=== PATIENT | male | born 1970 | race Caucasian/White ===

== ENCOUNTER → 2016-07-17 | Outpatient (CLI) | payer BC ==
[~2016-07-17] MED LIST: ACET500C PO; ALEV220C2 PO; BACT800T5 PO; BACTDSTA PO; CIPR500T89 PO; CLAR10CA3 PO; CLON-412 PO; COLA100C PO; CYCL10TA PO; DOCU10CA PO; HYDR12CA PO; IBUP80TA PO; LUNE1TAB PO; MEDR4PAK PO; META800T82 PO; METF500T PO; NITR100C37 PO; OXYC-274 PO; OXYC1CON PO; OXYC20TA2 PO; SENN8.6C PO; SENNAKOT PO; TRAZO50TA PO; VALI10TA PO; WELLBUTRIN PO; [UNRECOGNIZED DRUG - OTHER] PO
--- NOTE | 2016-08-01 01:54 | ECWPNPC ---
PATIENT NAME: MARIA C MÉNDEZ : 1970 GENDER: MALE VISIT DATE: 07/17/2016 DISCHARGE DATE: 07/17/1633 VISIT LOCKED DATE TIME: PHYSICIAN: YESI MAHONEY RESOURCE: YESI MAHONEY REASON FOR APPOINTMENT 1. BACK HISTORY OF PRESENT ILLNESS HISTORY OF PRESENT ILLNESS: PAIN THE PATIENT DESCRIBES THE PAIN... FALL RISK SCREENING: SCREENING :NO FALLS IN THE PAST YEAR TODAY'S VISIT: NOTES: RATES PAIN TODAY 7/10. NOTES PAIN CENTERED IN LOW BACK AND RIGHT FOOT/ANKLE. DESCRIBES PAIN CONSTANT, ACHING, SHARP, STABBING TENDER AND SHOOTING.NOTES INCREASING JOINT PAIN. IS USING MASSAGE AND ESSENTIAL OILS WHICH CAN BE HELPFUL.IS HAVING VERY STIFF MORNINGS. WILL BE STARTING [place] FOR FLEXIBILITY STATES HAS GAINED 40 LBS SINCE STOPPING PHENTERAMINE. CURRENT MEDICATIONS TAKING NAPROXEN 250 MG TABLET 2 CAP ORALLY THREE DAILY NEEDED TAKING CYCLOBENZAPRINE HCL 10 MG TABLET 1 TABLET ORALLY THREE TIMES A DAY TAKING OXYCODONE HCL 20 MG TABLET 1 ORALLY Q4-6H MDD5 NOT-TAKING PHENTERMINE HCL 37.5 MG CAPSULE 1 TABLET ORALLY DAILLY MDD=1 NOT-TAKING IBUPROFEN 200 MG TABLET 1 TABLET NEEDED ORALLY EVERY 6 HRS DISCONTINUED METHOCARBAMOL 750 MG TABLET 1 TABLET ORALLY BID MEDICATION LIST REVIEWED AND RECONCILED WITH THE PATIENT PAST MEDICAL HISTORY MRSA OSTEOMYELITIS OF LEFT FIFTH METATARSAL 08/20/2013 HYPERTENSION DEPRESSION SESONAL ALLERGIES KIDNEYS MISSHAPED INSOMNIA DIABETES ASCVD 10 YR RISK: 4.3% (DECEMBER 2013) ALLERGIES AMOXICILLIN: ANAPHYLAXIS: ALLERGY IODINE: ANAPHYLAXIS: ALLERGY SOCIAL HISTORY GENERAL: TOBACCO USE ARE YOU A:NONSMOKER 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 NEW PATIENT PAIN DIARY TODAY'S VISITNOTES FROM 0-10, WHAT LEVEL IS YOUR PAIN TODAY?0 PAIN CLINIC PFS, CLERGY, PUBLIC HEALTH REFERRALS PFS REFERRAL NEEDED?NO CLERGY REFERRAL NEEDED?NO PUBLIC HEALTH REFERRAL NEEDED?NO WAS THE PROVIDER NOTIFIED OF ANY PERTINENT INFO?NO PFS REFERRAL NEEDED?NO CLERGY REFERRAL NEEDED?NO PUBLIC HEALTH REFERRAL NEEDED?NO WAS THE PROVIDER NOTIFIED OF ANY PERTINENT INFO?NO REVIEW OF SYSTEMS CONSTITUTIONAL: ANY CHANGE IN YOUR MEDICAL CONDITION? NO . CHILLS NO . FEVER NO . INFECTION: DO YOU HAVE NEW INFECTIONS? NO . DO YOU HAVE HISTORY OF MRSA? NO . MUSCULOSKELETAL: ANY NEW PATTERNS OF PAIN OR NUMBNESS? NO . GASTROENTEROLOGY: ANY NEW CHANGE IN BOWEL CONTROL? NO . GENITOURINARY: ANY NEW CHANGE IN BLADDER CONTROL? NO . IS THERE A CHANCE YOU COULD BE ? NO . HEMATOLOGY/LYMPH: DO YOU TAKE ANY BLOOD THINNERS? (FOR EXAMPLE- COUMADIN, PLAVIX, AGGRENOX, PLATEL, PRADAXA, OR XARELTO) NO . WHEN WAS YOUR LAST DOSE? DATE: TIME: . NEUROLOGY: HAVE YOU FALLEN IN THE PAST 6 MONTHS? NO . ANY NEW EXTREMITY NUMBNESS OR WEAKNESS? NO . CARDIOLOGY: DO YOU HAVE A PACEMAKER OR DEFIBRILLATOR? NO . RESPIRATORY: HAVE YOU BEEN SICK IN THE PAST WEEK? NO . FEVER NO . FLU LIKE SYMPTOMS? NO . COUGH NO . INTEGUMENTARY: DO YOU HAVE ANY RASHES OR OPEN SORES? NO . ALLERGIC/IMMUNO: ARE YOU ALLERGIC TO SHELLFISH OR IV DYE? YES . ANY NEW ALLERGIES? NO . PSYCHIATRIC: DO YOU HAVE THOUGHTS OF HURTING YOURSELF OR SOMEONE ELSE? NO . ARE YOU ABUSED, NEGLECTED, OR IN AN UNSAFE ENVIRONMENT? NO . ENDOCRINOLOGY: ARE YOU DIABETIC? NO . OTHER: DO YOU NEED ANY PRESCRIPTIONS? YES . IF YES, PLEASE LIST: CYCLOBENZAPRINE . ANY NEW PROBLEMS WITH YOUR MEDICATIONS? NO . WHEN DID YOU LAST EAT? ____ . WHEN DID YOU LAST DRINK? ____ . WHAT DID YOU LAST DRINK? ____ . NAME OF PERSON DRIVING YOU HOME? ____ . DO YOU HAVE ANY OTHER QUESTIONS OR CONCERNS NO . REVIEWED BY: PROVIDER: . VITAL SIGNS WT 290 LBS, HT 76 IN, BMI 35.30 INDEX, BP 153/84 MM HG, HR 98 /MIN, RR 18 /MIN, TEMP 98.4 F, OXYGEN SAT % 98, NA INITIALS TL [id number], REVIEWED BY: CM. EXAMINATION GENERAL EXAMINATION: HEENT:UNREMARKABLE. LUNGS:CLEAR TO AUSCULTATION BILATERALLY. HEART:HEART RATE REGULAR. MUSCULOSKELETAL:PALPATION: POSITIVE FOR PAIN OVER LUMBAR SPINOUS PROCESSES.POSITIVE FOR PAIN OVER LUMBAR PARASPINAL MUSCLES. TRIGGER POINTS:, ELICITED WITH PALPATION OVER LUMBAR PARAVERTEBRAL MUSCLES AND INTO THE SACRUM. RESTRICTION OF ROM IN THE LUMBAR AREA. POOR EXTENSION/FLEXION LEFT FOOT. CAN FLEX AT HIP WITHOUT DIFFICULTY.. ASSESSMENTS LUMBAR POST-LAMINECTOMY SYNDROME - M96.1 (PRIMARY) ARTHRALGIA, UNSPECIFIED JOINT - M25.50 CHRONIC PRESCRIPTION OPIATE USE - Z79.891 TREATMENT LUMBAR POST-LAMINECTOMY SYNDROME REFILL PHENTERMINE HCL CAPSULE, 37.5 MG, 1 TABLET, ORALLY, DAILLY MDD=1, 30 DAY(S), 30, REFILLS 0 NOTES: FOLLOW UP WITH ORTHO REGARDING LEFT FOOT. MUST GET PRIMARY CARE PROVIDER. HEALTH DIET. LOOK UP MEDITERRANIAN DIET. EAT AT LEAST 4 SMALL MEALS PER DAY. CUT BACK ON CARBS. PROCEDURE CODES FA211 ESTABILISHED PATIENT [facility] CHARGE FOLLOW UP 1ST WEEK IN OCTOBER ELECTRONICALLY SIGNED BY JULY ROGERS ON 07/31/2016 AT 09:39 AM EST DISCLAIMER : THIS IS A VISIT SUMMARY EXTRACTED FROM THE [employer] CHART. IT IS NOT A COPY OF THE [employer] PROGRESS NOTE. TERESO
== END ==
LOC: M PAIN 08:40
PROVIDERS: ATTEND Nurse Practitioner Family
DX: Z09 Encounter for follow-up examination after completed treatment for conditions other than malignant neoplasm (principal); M96.1 Postlaminectomy syndrome, not elsewhere classified; M25.50 Pain in unspecified joint; I10 Essential (primary) hypertension; E11.9 Type 2 diabetes mellitus without complications; F32.9 Major depressive disorder, single episode, unspecified; J30.2 Other seasonal allergic rhinitis; G47.00 Insomnia, unspecified; Z79.891 Long term (current) use of opiate analgesic; Z79.899 Other long term (current) drug therapy; Z88.1 Allergy status to other antibiotic agents; Z88.8 Allergy status to other drugs, medicaments and biological substances; Z86.14 Personal history of Methicillin resistant Staphylococcus aureus infection

== ENCOUNTER → 2016-10-20 | Outpatient (CLI) | payer BC ==
[~2016-10-20] MED LIST changes: -COLA100C PO; +COLA100C3 PO
--- NOTE | 2016-11-04 00:29 | ECWPNPC ---
PATIENT NAME: MARIA C MÉNDEZ : 1970 GENDER: MALE VISIT DATE: 10/20/2016 DISCHARGE DATE: 10/20/16 1137 VISIT LOCKED DATE TIME: PHYSICIAN: YESI MAHONEY RESOURCE: YESI MAHONEY REASON FOR APPOINTMENT 1. BACK HISTORY OF PRESENT ILLNESS HISTORY OF PRESENT ILLNESS: PAIN THE PATIENT DESCRIBES THE PAIN... FALL RISK SCREENING: SCREENING :NO FALLS IN THE PAST YEAR TODAY'S VISIT: NOTES: RATES PAIN 5-6/10. NOTES WORST AREAS OF DISCOMFORT ARE LOW BACK AND LEFT FOOT. RECENT FALL - LANDED ON RIGHT HIP - WAS SORE BUT IS IMPROVING. NO NEW NUMBNESS/WEAKNESS OFTER FALL. MEDS ARE HELPFUL AND DO KEEP PAIN SANG CONTROL.CONTINUES TO WORK. . CURRENT MEDICATIONS TAKING NAPROXEN 250 MG TABLET 2 CAP ORALLY THREE DAILY NEEDED TAKING CYCLOBENZAPRINE HCL 10 MG TABLET 1 TABLET ORALLY THREE TIMES A DAY TAKING PHENTERMINE HCL 37.5 MG CAPSULE 1 TABLET ORALLY DAILLY MDD=1 TAKING OXYCODONE HCL 20 MG TABLET 1 ORALLY Q4-6H MDD5 NOT-TAKING IBUPROFEN 200 MG TABLET 1 TABLET NEEDED ORALLY EVERY 6 HRS MEDICATION LIST REVIEWED AND RECONCILED WITH THE PATIENT PAST MEDICAL HISTORY MRSA OSTEOMYELITIS OF LEFT FIFTH METATARSAL 08/20/2013 HYPERTENSION DEPRESSION SESONAL ALLERGIES KIDNEYS MISSHAPED INSOMNIA DIABETES ASCVD 10 YR RISK: 4.3% (DECEMBER 2013) ALLERGIES AMOXICILLIN: ANAPHYLAXIS: ALLERGY IODINE: ANAPHYLAXIS: ALLERGY SOCIAL HISTORY GENERAL: PAIN CLINIC PFS, CLERGY, PUBLIC HEALTH REFERRALS CLERGY REFERRAL NEEDED?NO WAS THE PROVIDER NOTIFIED OF ANY PERTINENT INFO?NO PFS REFERRAL NEEDED?NO PUBLIC HEALTH REFERRAL NEEDED?NO PATIENT: ____. REVIEW OF SYSTEMS CONSTITUTIONAL: ANY CHANGE IN YOUR MEDICAL CONDITION? NO . CHILLS NO . FEVER NO . INFECTION: DO YOU HAVE NEW INFECTIONS? NO . DO YOU HAVE HISTORY OF MRSA? YES . MUSCULOSKELETAL: ANY NEW PATTERNS OF PAIN OR NUMBNESS? NO . GASTROENTEROLOGY: ANY NEW CHANGE IN BOWEL CONTROL? NO . GENITOURINARY: ANY NEW CHANGE IN BLADDER CONTROL? NO . IS THERE A CHANCE YOU COULD BE ? NO . HEMATOLOGY/LYMPH: DO YOU TAKE ANY BLOOD THINNERS? (FOR EXAMPLE- COUMADIN, PLAVIX, AGGRENOX, PLATEL, PRADAXA, OR XARELTO) NO . WHEN WAS YOUR LAST DOSE? DATE: TIME: . NEUROLOGY: HAVE YOU FALLEN IN THE PAST 6 MONTHS? YES, FELL ON RIGHT HIP AFTER GETTING CAUGHT UP IN COMPUTER CORD / LAST SAT . ANY NEW EXTREMITY NUMBNESS OR WEAKNESS? NO . CARDIOLOGY: DO YOU HAVE A PACEMAKER OR DEFIBRILLATOR? NO . RESPIRATORY: HAVE YOU BEEN SICK IN THE PAST WEEK? NO . FEVER NO . FLU LIKE SYMPTOMS? NO . COUGH NO . INTEGUMENTARY: DO YOU HAVE ANY RASHES OR OPEN SORES? NO . ALLERGIC/IMMUNO: ARE YOU ALLERGIC TO SHELLFISH OR IV DYE? YES . ANY NEW ALLERGIES? NO . PSYCHIATRIC: DO YOU HAVE THOUGHTS OF HURTING YOURSELF OR SOMEONE ELSE? NO . ARE YOU ABUSED, NEGLECTED, OR IN AN UNSAFE ENVIRONMENT? NO . ENDOCRINOLOGY: ARE YOU DIABETIC? NO . OTHER: DO YOU NEED ANY PRESCRIPTIONS? YES . IF YES, PLEASE LIST: OXYCODONE ON 11/05/16 . ANY NEW PROBLEMS WITH YOUR MEDICATIONS? NO . WHEN DID YOU LAST EAT? ____ . WHEN DID YOU LAST DRINK? ____ . WHAT DID YOU LAST DRINK? ____ . NAME OF PERSON DRIVING YOU HOME? ____ . DO YOU HAVE ANY OTHER QUESTIONS OR CONCERNS NO . HEENT: GENERAL TO HAVE EXTENSIVE DENTAL WORK . REVIEWED BY: PROVIDER: YESI LAGUNAS . VITAL SIGNS WT 290 LBS, HT 76 IN, BMI 35.30 INDEX, BP 140/84 MM HG, HR 97 /MIN, RR 18 /MIN, TEMP 98.1 F, OXYGEN SAT % 97%, NA INITIALS SC 10:39, REVIEWED BY: NL. EXAMINATION GENERAL EXAMINATION: HEENT:UNREMARKABLE. LUNGS:CLEAR TO AUSCULTATION BILATERALLY. HEART:HEART RATE REGULAR. MUSCULOSKELETAL:PALPATION: POSITIVE FOR PAIN OVER LUMBAR SPINOUS PROCESSES.POSITIVE FOR PAIN OVER LUMBAR PARASPINAL MUSCLES. TRIGGER POINTS:, ELICITED WITH PALPATION OVER LUMBAR PARAVERTEBRAL MUSCLES AND INTO THE SACRUM. RESTRICTION OF ROM IN THE LUMBAR AREA. POOR EXTENSION/FLEXION LEFT FOOT. SLOW TO RISE TO STANDING POSITION. POSTURE UPRIGHT, GAIT ANTALGIC WITH LEFT LEG LIMP. ASSESSMENTS LUMBAR POST-LAMINECTOMY SYNDROME - M96.1 (PRIMARY) LUMBAR RADICULOPATHY - M54.16 CHRONICALLY ON OPIATE THERAPY - Z79.891 TREATMENT LUMBAR POST-LAMINECTOMY SYNDROME NOTES: UTOX TODAY. CONTINUE CURRENT MEDS. CLINICAL NOTES: ISTOP REGISTRY REVIEWED AND DEMNOSTRATES COMPLLIANCE. BRINGS IN MEDICATIONS WHICH IS APPROPRIATE FOR WHAT WAS DISPENSED. RECENT URINE TOXICOLOGY REVIEWED. NO UNAUTHORIZED MEDICATIONS. NO ILLICIT SUBSTANCES AND PRESCRIBED MEDICATIONS WERE PRESENT. PROCEDURE CODES FA211 ESTABILISHED PATIENT [facility] CHARGE DISPOSITION & COMMUNICATION FOLLOW UP END OF DECEMBER/EARLY JANUARY ELECTRONICALLY SIGNED BY JULY ROGERS ON 11/03/2016 AT 01:09 PM EDT DISCLAIMER : THIS IS A VISIT SUMMARY EXTRACTED FROM THE [employer] CHART. IT IS NOT A COPY OF THE [employer] PROGRESS NOTE. MTDD
== END ==
LOC: M PAIN 10:40
PROVIDERS: ATTEND Nurse Practitioner Family
DX: M96.1 Postlaminectomy syndrome, not elsewhere classified (principal); M54.16 Radiculopathy, lumbar region; Z79.891 Long term (current) use of opiate analgesic; Z79.899 Other long term (current) drug therapy; Z88.0 Allergy status to penicillin; Z88.8 Allergy status to other drugs, medicaments and biological substances

== ENCOUNTER → 2017-01-15 | Outpatient (CLI) | payer BC ==
[~2017-01-15] MED LIST changes: -COLA100C3 PO; +COLA100C5 PO
--- NOTE | 2017-02-09 01:17 | ECWPNPC ---
PATIENT NAME: MARIA C MÉNDEZ : 1970 GENDER: MALE VISIT DATE: 01/15/2017 DISCHARGE DATE: 01/15/17 1416 VISIT LOCKED DATE TIME: PHYSICIAN: YESI MAHONEY RESOURCE: YESI MAHONEY REASON FOR APPOINTMENT 1. MEDS HISTORY OF PRESENT ILLNESS HISTORY OF PRESENT ILLNESS: PAIN THE PATIENT DESCRIBES THE PAIN... FALL RISK SCREENING: SCREENING :NO FALLS IN THE PAST YEAR TODAY'S VISIT: NOTES: RATES PAIN TODAY 5-6/10. HAD RECENT FALL WITH RIGHT HIP PAIN. IS DOING EXERCISES, APPLICATION OF HEAT. NIGHT IS THE WORST AT PAIN IN HIP AREA IS AFFECTING SLEEP. DESCRIBES PAIN CONSTANT, ACHING AND THROBBING.. CURRENT MEDICATIONS TAKING NAPROXEN 250 MG TABLET 2 CAP ORALLY THREE DAILY NEEDED TAKING PHENTERMINE HCL 37.5 MG CAPSULE 1 TABLET ORALLY DAILLY MDD=1, NOTES: 2 MONTHS AGO LAST DOSE TAKING CYCLOBENZAPRINE HCL 10 MG TABLET 1 TABLET ORALLY THREE TIMES A DAY TAKING OXYCODONE HCL 20 MG TABLET 1 ORALLY Q4-6H MDD5 NOT-TAKING IBUPROFEN 200 MG TABLET 1 TABLET NEEDED ORALLY EVERY 6 HRS MEDICATION LIST REVIEWED AND RECONCILED WITH THE PATIENT PAST MEDICAL HISTORY MRSA OSTEOMYELITIS OF LEFT FIFTH METATARSAL 08/20/2013 HYPERTENSION DEPRESSION SESONAL ALLERGIES KIDNEYS MISSHAPED INSOMNIA DIABETES ASCVD 10 YR RISK: 4.3% (DECEMBER 2013) ALLERGIES AMOXICILLIN: ANAPHYLAXIS: ALLERGY IODINE: ANAPHYLAXIS: ALLERGY REVIEW OF SYSTEMS REVIEWED BY: PROVIDER: YESI 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 CONSTITUTIONAL: ANY CHANGE IN YOUR MEDICAL CONDITION? NO . CHILLS NO . FEVER NO . INFECTION: DO YOU HAVE NEW INFECTIONS? NO . DO YOU HAVE HISTORY OF MRSA? NO . MUSCULOSKELETAL: ANY NEW PATTERNS OF PAIN OR NUMBNESS? YES, RIGHT HIP PAIN LAST FEW WEEKS . GASTROENTEROLOGY: ANY NEW CHANGE IN BOWEL CONTROL? NO . GENITOURINARY: ANY NEW CHANGE IN BLADDER CONTROL? NO . IS THERE A CHANCE YOU COULD BE ? NO . HEMATOLOGY/LYMPH: DO YOU TAKE ANY BLOOD THINNERS? (FOR EXAMPLE- COUMADIN, PLAVIX, AGGRENOX, PLATEL, PRADAXA, OR XARELTO) NO . WHEN WAS YOUR LAST DOSE? DATE: TIME: . NEUROLOGY: HAVE YOU FALLEN IN THE PAST 6 MONTHS? YES, FOOT GOT CAUGHT AND FELL BACKWARDS LANDED ON HIS BACK/ NO WORK MISSED. DID NOT SEE MD . ANY NEW EXTREMITY NUMBNESS OR WEAKNESS? NO . CARDIOLOGY: DO YOU HAVE A PACEMAKER OR DEFIBRILLATOR? NO . RESPIRATORY: HAVE YOU BEEN SICK IN THE PAST WEEK? NO . FEVER NO . FLU LIKE SYMPTOMS? NO . COUGH NO . INTEGUMENTARY: DO YOU HAVE ANY RASHES OR OPEN SORES? NO . ALLERGIC/IMMUNO: ARE YOU ALLERGIC TO SHELLFISH OR IV DYE? NO . ANY NEW ALLERGIES? NO . PSYCHIATRIC: DO YOU HAVE THOUGHTS OF HURTING YOURSELF OR SOMEONE ELSE? NO . ARE YOU ABUSED, NEGLECTED, OR IN AN UNSAFE ENVIRONMENT? NO . ENDOCRINOLOGY: ARE YOU DIABETIC? YES - BLOOD SUGARS UNDER CONTROL . OTHER: DO YOU NEED ANY PRESCRIPTIONS? YES . IF YES, PLEASE LIST: OXYCODONE, FLEXERIL . ANY NEW PROBLEMS WITH YOUR MEDICATIONS? NO . WHEN DID YOU LAST EAT? ____ . WHEN DID YOU LAST DRINK? ____ . WHAT DID YOU LAST DRINK? ____ . NAME OF PERSON DRIVING YOU HOME? ____ . DO YOU HAVE ANY OTHER QUESTIONS OR CONCERNS NO . VITAL SIGNS WT 294.8 LBS, HT 76 IN, BMI 35.88 INDEX, BP 144/87 MM HG, HR 93 /MIN, RR 18 /MIN, TEMP 96.5 F, OXYGEN SAT % 95%, NA INITIALS SC 13:32, REVIEWED BY: NL. EXAMINATION GENERAL EXAMINATION: PSYCHALERT , ORIENTED X 3 , APPROPRIATE MOOD AND AFFECT . SMILING AND TALKATIVE. LUNGS:CLEAR TO AUSCULTATION BILATERALLY. HEART:HEART RATE REGULAR. MUSCULOSKELETAL:POINT TENDERNESS OVER LUMAR SPINOUS PROCESSES AND ACROSS THE LUMBOSACRAL AXIS AND LEFT ILIAC CREAST. RIGHT FOOT DROP PRESENT. TENDER WITH PALPATION OVER LEFT TROCANTERIC BURSA. POSITIVE RUDDY SIGN LEFT. ABLE TO RISE SLOWLY TO STANDING POSITION. CANE USED FOR BALANCE. POSTURE UPRIGHT. ASSESSMENTS LUMBAR POST-LAMINECTOMY SYNDROME - M96.1 (PRIMARY) LOW BACK PAIN - M54.5 LEFT HIP PAIN - M25.552 TREATMENT LUMBAR POST-LAMINECTOMY SYNDROME REFILL OXYCODONE HCL TABLET, 20 MG, 1, ORALLY, Q4-6H MDD5, 30 DAY(S), 150, REFILLS 0 HIP,AP,LAT TO INCLUDE [id number] M 01/15/2017 2:10:44 PM > LEFT HIP PAIN NOTES: TRY TO PUT TENS OVER PAIN FUL AREAS OF LEFT HIP AND SACRUM AT THE ILIAC CREST. ICE TO MUSCLE SPASM AREAS. CLINICAL NOTES: ISTOP REGISTRY REVIEWED AND DEMNOSTRATES COMPLLIANCE. BRINGS IN MEDICATIONS WHICH IS APPROPRIATE FOR WHAT WAS DISPENSED. RECENT URINE TOXICOLOGY REVIEWED. NO UNAUTHORIZED MEDICATIONS. NO ILLICIT SUBSTANCES AND PRESCRIBED MEDICATIONS WERE PRESENT. PROCEDURE CODES FA211 ESTABILISHED PATIENT [facility] CHARGE G8730 PAIN ASSESS POS TOOL F/U PLAN DOC G8427 DOC MEDS VERIFIED W/PT OR RE DISPOSITION & COMMUNICATION FOLLOW UP 2 MONTHS (REASON: BACK PAIN) ELECTRONICALLY SIGNED BY JULY ROGERS ON 02/08/2017 AT 05:57 PM EDT DISCLAIMER : THIS IS A VISIT SUMMARY EXTRACTED FROM THE [employer] CHART. IT IS NOT A COPY OF THE [employer] PROGRESS NOTE. TERESO
== END ==
LOC: M PAIN 13:20
PROVIDERS: ATTEND Nurse Practitioner Family
DX: M96.1 Postlaminectomy syndrome, not elsewhere classified (principal); M54.5 Low back pain; M25.552 Pain in left hip; Z79.891 Long term (current) use of opiate analgesic; Z79.899 Other long term (current) drug therapy; Z88.0 Allergy status to penicillin; Z88.8 Allergy status to other drugs, medicaments and biological substances

== ENCOUNTER → 2017-03-19 | Outpatient (CLI) | payer BC ==
--- NOTE | 2017-04-04 02:24 | ECWPNPC ---
PATIENT NAME: MARIA C MÉNDEZ : 1970 GENDER: MALE VISIT DATE: 03/19/2017 DISCHARGE DATE: 03/19/17 1039 VISIT LOCKED DATE TIME: PHYSICIAN: YESI MAHONEY RESOURCE: YESI MAHONEY REASON FOR APPOINTMENT 1. BACK PAIN HISTORY OF PRESENT ILLNESS HISTORY OF PRESENT ILLNESS: PAIN THE PATIENT DESCRIBES THE PAIN... FALL RISK SCREENING: SCREENING :NO FALLS IN THE PAST YEAR TODAY'S VISIT: NOTES: RATES PAIN LEVEL TODAYA S 11/15. DESCRIBES PAIN CONSTANT, BURNING, ACHING. PAIN CENTERED AT LOW BACK WITH RADIATION TO LEFT LEG TO LEVEL OF THE FOOT. REPORTS HIS MEDICATIONS ARE HELPFUL AND ALLOW HIM TO FUNCTION AND TO CONTINUE WORK. HAS RECENTLY CUT BACK SLIGHTLY ON HIS WORK HOURS DUE TO PAIN. C=DENIES ANY ADVERSE EFFECTS SECONDARY TO HIS PAIN MEDS. . CURRENT MEDICATIONS TAKING CYCLOBENZAPRINE HCL 10 MG TABLET 1 TABLET ORALLY THREE TIMES A DAY TAKING OXYCODONE HCL 20 MG TABLET 1 ORALLY Q4-6H MDD5 TAKING PHENTERMINE HCL 37.5 MG CAPSULE 1 TABLET ORALLY DAILLY MDD=1 TAKING ACETAMINOPHEN 500 MG CAPSULE 2 CAPSULES NEEDED ORALLY EVERY 6 HRS NOT-TAKING NAPROXEN 250 MG TABLET 2 CAP ORALLY THREE DAILY NEEDED NOT-TAKING IBUPROFEN 200 MG TABLET 1 TABLET NEEDED ORALLY EVERY 6 HRS MEDICATION LIST REVIEWED AND RECONCILED WITH THE PATIENT PAST MEDICAL HISTORY MRSA OSTEOMYELITIS OF LEFT FIFTH METATARSAL 08/20/2013 HYPERTENSION DEPRESSION SESONAL ALLERGIES KIDNEYS MISSHAPED INSOMNIA DIABETES ASCVD 10 YR RISK: 4.3% (DECEMBER 2013) ALLERGIES AMOXICILLIN: ANAPHYLAXIS: ALLERGY IODINE: ANAPHYLAXIS: ALLERGY SURGICAL HISTORY LUMBAR SPINE REPLACEMENT DR MARVEL MOROCHO 03/20/13 LUMBAR SPINE FUSION 04/03/13 HOSPITALIZATION/MAJOR DIAGNOSTIC PROCEDURE RELATED TO SURGIERIES REVIEW OF SYSTEMS REVIEWED BY: PROVIDER: YESI LAGUNAS . CONSTITUTIONAL: NEW UNEXPLAINABLE WEIGHT LOSS? HAS WORKED HARD ON WEIGHT LOSS AND IMPROVED DIET. HAS LOST 15 LBS . ANY CHANGE IN YOUR MEDICAL CONDITION? NO . CHILLS NO . FEVER NO . INFECTION: DO YOU HAVE NEW INFECTIONS? NO . DO YOU HAVE HISTORY OF MRSA? NO . MUSCULOSKELETAL: ANY NEW PATTERNS OF PAIN OR NUMBNESS? NO . GASTROENTEROLOGY: ANY NEW CHANGE IN BOWEL CONTROL? NO . GENITOURINARY: ANY NEW CHANGE IN BLADDER CONTROL? NO . IS THERE A CHANCE YOU COULD BE ? NO . HEMATOLOGY/LYMPH: DO YOU TAKE ANY BLOOD THINNERS? (FOR EXAMPLE- COUMADIN, PLAVIX, AGGRENOX, PLATEL, PRADAXA, OR XARELTO) NO . WHEN WAS YOUR LAST DOSE? DATE: TIME: . NEUROLOGY: HAVE YOU FALLEN IN THE PAST 6 MONTHS? YES, PT STATES HIS FOOT GOT TANGLED IN CORD AT WORK, AND FELL, PT DENIES MAJOR INJURIES REQUIRING MEDICAL ATTENTION . ANY NEW EXTREMITY NUMBNESS OR WEAKNESS? NO . CARDIOLOGY: DO YOU HAVE A PACEMAKER OR DEFIBRILLATOR? NO . RESPIRATORY: HAVE YOU BEEN SICK IN THE PAST WEEK? NO . FEVER NO . FLU LIKE SYMPTOMS? NO . COUGH NO . INTEGUMENTARY: DO YOU HAVE ANY RASHES OR OPEN SORES? NO . ALLERGIC/IMMUNO: ARE YOU ALLERGIC TO SHELLFISH OR IV DYE? YES, SHELLFISH AND BETADINE . ANY NEW ALLERGIES? NO . PSYCHIATRIC: DO YOU HAVE THOUGHTS OF HURTING YOURSELF OR SOMEONE ELSE? NO . ARE YOU ABUSED, NEGLECTED, OR IN AN UNSAFE ENVIRONMENT? NO . ENDOCRINOLOGY: ARE YOU DIABETIC? NO . OTHER: DO YOU NEED ANY PRESCRIPTIONS? YES, OXYCODONE, FLEXARIL, PHENTERMINE . IF YES, PLEASE LIST: ____ . ANY NEW PROBLEMS WITH YOUR MEDICATIONS? NO . WHEN DID YOU LAST EAT? ____ . WHEN DID YOU LAST DRINK? ____ . WHAT DID YOU LAST DRINK? ____ . NAME OF PERSON DRIVING YOU HOME? ____ . DO YOU HAVE ANY OTHER QUESTIONS OR CONCERNS NO . PSYCHOLOGY: SLEEP DISTURBANCES UNABLE TO FIND A GOOD POSITION FOR SLEEPING . VITAL SIGNS WT 281 LBS, HT 76 IN, BMI 34.20 INDEX, BP 166/88 MM HG, HR 96 /MIN, RR 16 /MIN, TEMP 98 F, OXYGEN SAT % 100, REVIEWED BY: EM. EXAMINATION GENERAL EXAMINATION: PSYCHALERT , ORIENTED X 3 , APPROPRIATE MOOD AND AFFECT . SMILING AND TALKATIVE. LUNGS:CLEAR TO AUSCULTATION BILATERALLY. HEART:HEART RATE REGULAR. MUSCULOSKELETAL:POINT TENDERNESS OVER LUMAR SPINOUS PROCESSES AND ACROSS THE LUMBOSACRAL AXIS AND LEFT ILIAC CREAST. RIGHT FOOT DROP PRESENT. TENDER WITH PALPATION OVER LEFT TROCANTERIC BURSA. POSITIVE RUDDY SIGN LEFT. ABLE TO RISE SLOWLY TO STANDING POSITION.. POSTURE UPRIGHT. GAIT ANTALGIC AND FOOT ROLLS LATERALLY WITH AMBULATION. ASSESSMENTS LUMBAR POST-LAMINECTOMY SYNDROME - M96.1 (PRIMARY) LOW BACK PAIN - M54.5 LEFT HIP PAIN - M25.552 TREATMENT LUMBAR POST-LAMINECTOMY SYNDROME REFILL CYCLOBENZAPRINE HCL TABLET, 10 MG, 1 TABLET, ORALLY, THREE TIMES A DAY 3 MONTHS SUPPLY CODE D, 90 DAY(S), 270, REFILLS 2 NOTES: USE TENS UNIT WHEN ABLE. WALK AND EXERCISE ABLE. CLINICAL NOTES: ISTOP REGISTRY REVIEWED AND DEMNOSTRATES COMPLLIANCE. BRINGS IN MEDICATIONS WHICH IS APPROPRIATE FOR WHAT WAS DISPENSED. RECENT URINE TOXICOLOGY REVIEWED. NO UNAUTHORIZED MEDICATIONS. NO ILLICIT SUBSTANCES AND PRESCRIBED MEDICATIONS WERE PRESENT. PROCEDURE CODES FA211 ESTABILISHED PATIENT [facility] CHARGE DISPOSITION & COMMUNICATION FOLLOW UP 2 MONTHS (REASON: BACK PAIN) ELECTRONICALLY SIGNED BY JULY ROGERS ON 04/03/2017 AT 06:45 PM EDT DISCLAIMER : THIS IS A VISIT SUMMARY EXTRACTED FROM THE [employer] CHART. IT IS NOT A COPY OF THE [employer] PROGRESS NOTE. TERESO
== END ==
LOC: M PAIN 09:30
PROVIDERS: ATTEND Nurse Practitioner Family
DX: M96.1 Postlaminectomy syndrome, not elsewhere classified (principal); M54.5 Low back pain; M25.552 Pain in left hip; Z79.891 Long term (current) use of opiate analgesic; Z79.899 Other long term (current) drug therapy; Z88.0 Allergy status to penicillin; Z88.3 Allergy status to other anti-infective agents

== ENCOUNTER → 2017-06-04 | Outpatient (CLI) | payer BC ==
--- NOTE | 2017-06-21 01:43 | ECWPNPC ---
PATIENT NAME: MARIA C MÉNDEZ : 1970 GENDER: MALE VISIT DATE: 06/04/2017 DISCHARGE DATE: 06/04/17 1005 VISIT LOCKED DATE TIME: PHYSICIAN: YESI MAHONEY RESOURCE: YESI MAHONEY REASON FOR APPOINTMENT 1. BACK HISTORY OF PRESENT ILLNESS HISTORY OF PRESENT ILLNESS: PAIN THE PATIENT DESCRIBES THE PAIN... FALL RISK SCREENING: SCREENING :NO FALLS IN THE PAST YEAR TODAY'S VISIT: NOTES: RATES PAIN TODAY 5-6/10. NOTES PAIN IS EXACERBATED WITH LONG WORK HOURS, PROLONGED STANDING AND WALKING, AND THE WEATHER. PAIN IS CONSTANT, ACHING AND BURNING. HAS BEEN USING TENS UNIT AND MOIST HEAT TO THE BACK.. 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 REVIEW OF SYSTEMS REVIEWED BY: PROVIDER: YESI LAGUNAS . CONSTITUTIONAL: ANY CHANGE IN YOUR MEDICAL CONDITION? NO . CHILLS NO . FEVER NO . INFECTION: DO YOU HAVE NEW INFECTIONS? NO . DO YOU HAVE HISTORY OF MRSA? NO . MUSCULOSKELETAL: ANY NEW PATTERNS OF PAIN OR NUMBNESS? NO . GASTROENTEROLOGY: ANY NEW CHANGE IN BOWEL CONTROL? NO . GENITOURINARY: ANY NEW CHANGE IN BLADDER CONTROL? NO . IS THERE A CHANCE YOU COULD BE ? NO . HEMATOLOGY/LYMPH: DO YOU TAKE ANY BLOOD THINNERS? (FOR EXAMPLE- COUMADIN, PLAVIX, AGGRENOX, PLATEL, PRADAXA, OR XARELTO) NO . WHEN WAS YOUR LAST DOSE? DATE: TIME: . NEUROLOGY: HAVE YOU FALLEN IN THE PAST 6 MONTHS? NO . ANY NEW EXTREMITY NUMBNESS OR WEAKNESS? NO . CARDIOLOGY: DO YOU HAVE A PACEMAKER OR DEFIBRILLATOR? NO . RESPIRATORY: HAVE YOU BEEN SICK IN THE PAST WEEK? NO . FEVER NO . FLU LIKE SYMPTOMS? NO . COUGH NO . INTEGUMENTARY: DO YOU HAVE ANY RASHES OR OPEN SORES? NO . ALLERGIC/IMMUNO: ARE YOU ALLERGIC TO SHELLFISH OR IV DYE? YES, IODINE . ANY NEW ALLERGIES? NO . PSYCHIATRIC: DO YOU HAVE THOUGHTS OF HURTING YOURSELF OR SOMEONE ELSE? NO . ARE YOU ABUSED, NEGLECTED, OR IN AN UNSAFE ENVIRONMENT? NO . ENDOCRINOLOGY: ARE YOU DIABETIC? NO . OTHER: DO YOU NEED ANY PRESCRIPTIONS? NO . IF YES, PLEASE LIST: ____ . ANY NEW PROBLEMS WITH YOUR MEDICATIONS? NO . WHEN DID YOU LAST EAT? ____ . WHEN DID YOU LAST DRINK? ____ . WHAT DID YOU LAST DRINK? ____ . NAME OF PERSON DRIVING YOU HOME? ____ . DO YOU HAVE ANY OTHER QUESTIONS OR CONCERNS NO . VITAL SIGNS WT 277 LBS, HT 76 IN, BMI 33.71 INDEX, BP 154/94 MM HG, HR 107 /MIN, RR 18 /MIN, TEMP 98.8 F, OXYGEN SAT % 97%, NA INITIALS SC 09:24, REVIEWED BY: NL. EXAMINATION GENERAL EXAMINATION: PSYCHALERT , ORIENTED X 3 , APPROPRIATE MOOD AND AFFECT . SMILING AND TALKATIVE. LUNGS:CLEAR TO AUSCULTATION BILATERALLY. HEART:HEART RATE REGULAR. MUSCULOSKELETAL:POINT TENDERNESS OVER LUMAR SPINOUS PROCESSES AND ACROSS THE LUMBOSACRAL AXIS AND LEFT ILIAC CREAST. RIGHT FOOT DROP PRESENT. TENDER WITH PALPATION OVER LEFT TROCANTERIC BURSA. POSITIVE RUDDY SIGN LEFT. ABLE TO RISE SLOWLY TO STANDING POSITION.. POSTURE UPRIGHT. GAIT ANTALGIC AND FOOT ROLLS LATERALLY WITH AMBULATION. 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 CONTINUE CURRENT MEDS. START VITAMIN D-3 3000IU DAILY. CLINICAL NOTES: ISTOP REGISTRY REVIEWED AND DEMNOSTRATES COMPLLIANCE. (REF # [id number]) BRINGS IN MEDICATIONS WHICH IS APPROPRIATE FOR WHAT WAS DISPENSED. RECENT URINE TOXICOLOGY REVIEWED. NO UNAUTHORIZED MEDICATIONS. NO ILLICIT SUBSTANCES AND PRESCRIBED MEDICATIONS WERE PRESENT. PROCEDURE CODES FA211 ESTABILISHED PATIENT [facility] CHARGE DISPOSITION & COMMUNICATION FOLLOW UP 2-3 MONTHS (REASON: BACK/HIP PAIN) ELECTRONICALLY SIGNED BY JULY ROGERS ON 06/20/2017 AT 09:10 AM EST DISCLAIMER : THIS IS A VISIT SUMMARY EXTRACTED FROM THE [employer] CHART. IT IS NOT A COPY OF THE [employer] PROGRESS NOTE. TERESO
== END ==
LOC: M PAIN 09:00
PROVIDERS: ATTEND Nurse Practitioner Family
DX: M96.1 Postlaminectomy syndrome, not elsewhere classified (principal); M54.5 Low back pain; M25.552 Pain in left hip; Z79.891 Long term (current) use of opiate analgesic; Z79.899 Other long term (current) drug therapy; Z88.1 Allergy status to other antibiotic agents; Z88.3 Allergy status to other anti-infective agents

== ENCOUNTER → 2017-09-03 | Outpatient (CLI) | payer BC | LOC: M PAIN 08:45 | DX: G89.29 Other chronic pain (principal); M96.1 Postlaminectomy syndrome, not elsewhere classified; M54.5 Low back pain; M25.552 Pain in left hip; I10 Essential (primary) hypertension; F32.9 Major depressive disorder, single episode, unspecified; J30.2 Other seasonal allergic rhinitis; G47.00 Insomnia, unspecified; E11.9 Type 2 diabetes mellitus without complications; Z79.891 Long term (current) use of opiate analgesic; Z88.0 Allergy status to penicillin; Z88.8 Allergy status to other drugs, medicaments and biological substances; Z79.899 Other long term (current) drug therapy | CPT/HCPCS: G0463 ==

== ENCOUNTER → 2017-11-05 | Outpatient (CLI) | payer BC | LOC: M PAIN 08:45 | DX: M96.1 Postlaminectomy syndrome, not elsewhere classified (principal); I10 Essential (primary) hypertension; Z79.891 Long term (current) use of opiate analgesic; Z79.899 Other long term (current) drug therapy; Z88.0 Allergy status to penicillin; Z88.8 Allergy status to other drugs, medicaments and biological substances | CPT/HCPCS: G0463 ==

== ENCOUNTER → 2018-02-04 | Outpatient (CLI) | payer BC | LOC: M PAIN 08:30 | DX: M86.172 Other acute osteomyelitis, left ankle and foot (principal); E11.9 Type 2 diabetes mellitus without complications; I10 Essential (primary) hypertension; F32.9 Major depressive disorder, single episode, unspecified; J30.2 Other seasonal allergic rhinitis; G47.00 Insomnia, unspecified; Z79.891 Long term (current) use of opiate analgesic; Z79.899 Other long term (current) drug therapy; Z88.1 Allergy status to other antibiotic agents; Z98.1 Arthrodesis status | CPT/HCPCS: G0463 ==

== ENCOUNTER → 2018-04-19 | Outpatient (CLI) | payer BC | LOC: M PAIN 13:00 | DX: M96.1 Postlaminectomy syndrome, not elsewhere classified (principal); M54.5 Low back pain; E11.9 Type 2 diabetes mellitus without complications; I10 Essential (primary) hypertension; F32.9 Major depressive disorder, single episode, unspecified; J30.2 Other seasonal allergic rhinitis; G47.00 Insomnia, unspecified; Z79.891 Long term (current) use of opiate analgesic; Z79.899 Other long term (current) drug therapy; Z88.1 Allergy status to other antibiotic agents; Z91.013 Allergy to seafood | CPT/HCPCS: G0463 ==

== ENCOUNTER → 2018-09-02 | Outpatient (CLI) | payer BC ==
--- NOTE | 2018-09-16 00:38 | ECWPNPC ---
PATIENT NAME: MARIA C MÉNDEZ : 1970 GENDER: MALE VISIT DATE: 09/02/2018 DISCHARGE DATE: 09/02/18 0949 VISIT LOCKED DATE TIME: PHYSICIAN: CHAD VOGT RESOURCE: CHAD VOGT REASON FOR APPOINTMENT 1. BACK PT OF SW HISTORY OF PRESENT ILLNESS HISTORY OF PRESENT ILLNESS: HERE FOR F/U OF CHRONIC LOW BACK PAIN AND LEFT FOOT PAIN.RECENT AMPUTATION LEFT 5TH METATARSAL FOR OSTEOMYELITIS.SUFFERS FROM CHRONIC LOW BACK PAIN W HX OF LUMBAR SURGERY WITH JEAN PLACEMENT APPROXIMATLEY 4 YEARS AGO.RATING PAIN VAS 6/10. PAIN THE PATIENT DESCRIBES THE PAIN... FALL RISK SCREENING: SCREENING : NO FALLS IN THE PAST YEAR. CURRENT MEDICATIONS TAKING IBUPROFEN 200 MG TABLET 1 TABLET NEEDED ORALLY EVERY 6 HRS TAKING CYCLOBENZAPRINE HCL 10 MG TABLET 1 TABLET ORALLY THREE TIMES A DAY 3 MONTHS SUPPLY CODE D TAKING OXYCODONE HCL 20 MG TABLET 1 ORALLY TAKE 1 TAB Q4-6 HRS PRN PAIN MDD5 TAKING PHENTERMINE HCL 37.5 MG CAPSULE 1 TABLET ORALLY DAILY MDD=1, NOTES: NOT CURRETNLY TAKING DUE TO INTERACTION WITH ANOTHER MEDICATION TAKING METFORMIN HCL 500 MG TABLET 1 TABLET WITH A MEAL ORALLY BID TAKING BUPROPION HCL ER (SR) 150 MG TABLET EXTENDED RELEASE 12 HOUR 1 TABLET IN THE MORNING ORALLY BID TAKING LINEZOLID 600 MG TABLET 1 TABLET ORALLY EVERY 12 HRS TAKING SILVER SULFADIAZINE 1 % CREAM 1 APPLICATION TO AFFECTED AREA EXTERNALLY ONCE A DAY NOT-TAKING ACETAMINOPHEN 500 MG CAPSULE 2 CAPSULES NEEDED ORALLY EVERY 6 HRS NOT-TAKING IBUPROFEN PM 200-38 MG TABLET 2 TABLETS AT BEDTIME NEEDED ORALLY ONCE A DAY NOT-TAKING AMLODIPINE BESYLATE 10 MG TABLET 1 TABLET ORALLY ONCE A DAY NOT-TAKING MINOCYCLINE HCL 100 MG CAPSULE 1 CAPSULE ORALLY EVERY 12 HRS NOT-TAKING DICLOFENAC SODIUM 75 MG TABLET DELAYED RELEASE 1 TABLET WITH FOOD OR MILK ORALLY TWICE A DAY NOT-TAKING NAPROXEN 250 MG TABLET 2 CAP ORALLY THREE DAILY NEEDED MEDICATION LIST REVIEWED AND RECONCILED WITH THE PATIENT PAST MEDICAL HISTORY MRSA OSTEOMYELITIS OF LEFT FIFTH METATARSAL 08/20/2013 HYPERTENSION DEPRESSION SESONAL ALLERGIES KIDNEYS MISSHAPED INSOMNIA PRE-DIABETES ASCVD 10 YR RISK: 4.3% (DECEMBER 2013) OSTEOMYELITIS LEFT FOOT ALLERGIES AMOXICILLIN: ANAPHYLAXIS: ALLERGY IODINE: ANAPHYLAXIS: ALLERGY SURGICAL HISTORY LUMBAR SPINE REPLACEMENT DR MARVEL MOROCHO 03/20/13 LUMBAR SPINE FUSION 04/03/13 PARTIAL LEFT FOOT AMPUTATION 01/08/19 FAMILY HISTORY FATHER: ALIVE, ALIVE MOTHER: ALIVE, ALIVE 4 BROTHER(S) , 1 SISTER(S) - HEALTHY. 2 SON(S) - HEALTHY. SOCIAL HISTORY GENERAL: TOBACCO USE ARE YOU A:NONSMOKER ALCOHOL SCREENING DID YOU HAVE A DRINK CONTAINING ALCOHOL IN THE PAST YEAR?NO POINTS0 INTERPRETATIONNEGATIVE RECREATIONAL DRUG USE DRUG USE?NO CAFFEINE CAFFEINE USE?YES HOW OFTEN AND HOW MUCH? COFFEE DAILY PRESYBETERIAN [id number] LATTER DAY LANGUAGE LANGUAGES SPOKEN:MOZAMBICAN LEARNING BARRIERS / SPECIAL NEEDS HEARING IMPAIRED?NO VISION IMPAIRED?YES :CORRECTIVE LENSES COGNITIVELY IMPAIRED?NO READINESS TO LEARN?YES LEARNING PREFERENCES?NO LEARNING CAPABILITIES PRESENT?YES EMOTIONAL BARRIERS?NO DIET: CARBOHYDRATE CONTROLLED, LOW SALT, LOW SUGAR. MARITAL STATUS: . OTHERS AT HOME: SPOUSE. PAIN CLINIC PFS, CLERGY, PUBLIC HEALTH REFERRALS PFS REFERRAL NEEDED?NO CLERGY REFERRAL NEEDED?NO PUBLIC HEALTH REFERRAL NEEDED?NO WAS THE PROVIDER NOTIFIED OF ANY PERTINENT INFO?NO HAS THE PATIENT BEEN EDUCATED REGARDING HIS/HER PLAN OF CARE?YES HAS THE PATIENT BEEN EDUCATED REGARDING PAIN, THE RISK FOR PAIN, THE IMPORTANCE OF EFFECTIVE PAIN MANAGEMENT, AND THE PAIN ASSESSMENT PROCESS?YES ADVANCE DIRECTIVE ADVANCE DIRECTIVE DISCUSSED WITH PATIENT:YES STATES HCP IS HIS - ALYSSIA MÉNDEZ; NO DOCUMENT PROVIDED REVIEWED WITH PATIENT 04/19/18 1300 JSREVIEWED WITH PATIENT 09/02/18 0857 JS. HOSPITALIZATION/MAJOR DIAGNOSTIC PROCEDURE RELATED TO SURGIERIES FOOT INFECTION - OSTEOMYELITIS 04/2018 REVIEW OF SYSTEMS REVIEWED BY: PROVIDER: CHAD LAGUNAS . CONSTITUTIONAL: ANY CHANGE IN YOUR MEDICAL CONDITION? NO . CHILLS NO . FEVER NO . INFECTION: DO YOU HAVE NEW INFECTIONS? NO . DO YOU HAVE HISTORY OF MRSA? YES . MUSCULOSKELETAL: ANY NEW PATTERNS OF PAIN OR NUMBNESS? YES, STATES NEW SHOOTING INTERMITTENT PAIN FROM LEFT FOOT UP THE LEFT LEG. SO SEVERE THAT IT WILL DROP HIM TO HIS KNEES. . GASTROENTEROLOGY: ANY NEW CHANGE IN BOWEL CONTROL? NO . GENITOURINARY: ANY NEW CHANGE IN BLADDER CONTROL? NO . IS THERE A CHANCE YOU COULD BE ? NO . HEMATOLOGY/LYMPH: DO YOU TAKE ANY BLOOD THINNERS? (FOR EXAMPLE- COUMADIN, PLAVIX, AGGRENOX, PLATEL, PRADAXA, OR XARELTO) NO . WHEN WAS YOUR LAST DOSE? DATE: TIME: . NEUROLOGY: HAVE YOU FALLEN IN THE PAST 12 MONTHS? YES, STATES PRIOR TO LAST VISIT, DISCUSSED AT LAST VISIT . ANY NEW EXTREMITY NUMBNESS OR WEAKNESS? YES, STATES WEAKNESS TO LEFT LEG WITH SLIGHT NUMBNESS TO LEFT FOOT . CARDIOLOGY: DO YOU HAVE A PACEMAKER OR DEFIBRILLATOR? NO . RESPIRATORY: HAVE YOU BEEN SICK IN THE PAST WEEK? NO . FEVER NO . FLU LIKE SYMPTOMS? NO . COUGH NO . INTEGUMENTARY: DO YOU HAVE ANY RASHES OR OPEN SORES? NO . ALLERGIC/IMMUNO: ARE YOU ALLERGIC TO IV DYE? NO . ANY NEW ALLERGIES? NO . PSYCHIATRIC: DO YOU HAVE THOUGHTS OF HURTING YOURSELF OR SOMEONE ELSE? NO . ARE YOU ABUSED, NEGLECTED, OR IN AN UNSAFE ENVIRONMENT? NO . ENDOCRINOLOGY: ARE YOU DIABETIC? YES, STATES PRE-DIABETES . OTHER: DO YOU NEED ANY PRESCRIPTIONS? YES . IF YES, PLEASE LIST: ____WILL NEED OXYCODONE BEGINNING OF SEPTEMBER . ANY NEW PROBLEMS WITH YOUR MEDICATIONS? NO . WHEN DID YOU LAST EAT? ____ . WHEN DID YOU LAST DRINK? ____ . WHAT DID YOU LAST DRINK? ____ . NAME OF PERSON DRIVING YOU HOME? ____ . DO YOU HAVE ANY OTHER QUESTIONS OR CONCERNS YES, HAD PARTIAL AMPUTATION OF LEFT FOOT, NOW HAS SHOOTING PAIN FROM FOOT AND UP LEG . VITAL SIGNS WT 302.6 LBS, HT 76 IN, BMI 36.83 INDEX, BP 164/79 MM HG, HR 91 /MIN, RR 18 /MIN, TEMP 98.2 F, OXYGEN SAT % 96%, SAFE IN ENV? (Y/N) YES, NA INITIALS AW 0845, REVIEWED BY: JSDISCUSSED ELEVATED BP WITH PATIENT, STATED HE IS OFF HIS BP MED. STATED HE WOULD DISCUSS WITH PCP. 09/02/18 0828 HELEN. EXAMINATION GENERAL EXAMINATION: GENERAL APPEARANCE:AWAKE,ALERT ,PLEAASANT . PSYCHAFFECT NORMAL . LUNGS:LUNG PRYOR ARE CLEAR TO AUSCULTATION BILATERALLY. GOOD MOVEMENT OF AIR . HEART:S1, S2 IN A REGULAR RATE AND RHYTHM. NO SIGNIFICANT MURMURS, RUBS OR GALLOPS NOTED . ASSESSMENTS LUMBAR POST-LAMINECTOMY SYNDROME - M96.1 (PRIMARY) LEFT FOOT PAIN - M79.672 TREATMENT LUMBAR POST-LAMINECTOMY SYNDROME REFILL OXYCODONE HCL TABLET, 20 MG, 1, ORALLY, TAKE 1 TAB Q4-6 HRS PRN PAIN MDD5, 30 DAY(S), 150, REFILLS 0 STOP PHENTERMINE HCL CAPSULE, 37.5 MG, 1 TABLET, ORALLY, DAILY MDD=1, NOTES: NOT CURRETNLY TAKING DUE TO INTERACTION WITH ANOTHER MEDICATION REFILL CYCLOBENZAPRINE HCL TABLET, 10 MG, 1 TABLET, ORALLY, THREE TIMES A DAY 3 MONTHS SUPPLY CODE D, 90 DAY(S), 270, REFILLS 2 CONTINUE IBUPROFEN TABLET, 200 MG, 1 TABLET NEEDED, ORALLY, EVERY 6 HRS START GABAPENTIN CAPSULE, 300 MG, 1 CAPSULE, ORALLY, BID, 90 DAY(S), 180 CAPSULE, REFILLS 0 NOTES: ISTOP REGISTRY REVIEWED AND DEMONSTRATES COMPLLIANCE. BRINGS IN MEDICATIONS WHICH IS APPROPRIATE FOR WHAT WAS DISPENSED. RECENT URINE TOXICOLOGY REVIEWED. NO UNAUTHORIZED MEDICATIONS. NO ILLICIT SUBSTANCES AND PRESCRIBED MEDICATIONS WERE PRESENT. URINE TOX TODAY, RISKS AND BENEFITS OF NARCOTIC/OPIOD MEDICATIONS WERE REVIEWED WITH PATIENT - THIS INCLUDES BUT IS NOT LIMITED TO RISK OF DEPENDANCE/DEVELOPMENT OF ADDICTION, MOOD DISTURBANCE AND DEPRESSION, OSTEOPOROSIS, HORMONAL AND LABIDAL CHANGES, RESPIRATORY DEPRESSION AND . PATIENT IS ADVISED NOT TO DRIVE OR DRINK ALCOHOL WHILE ON THESE MEDICATIONS, [facility] NARCOTIC AGREEMENT WAS UPDATED REVIEWED AND SIGNED TODAY BY THE PATIENT. SEE ATTACHED DOCUMENT FOR FULL DETAILS; SPECIFIC ISSUES WERE REVIEWED: 1) KEEP PAIN MEDS IN THEIR ORIGINAL BOTTLES AND ANY WEEKLY PLANNERS ARE TO BE BROUGHT TO THE PAIN CENTER AT EVERY VISIT. 2) THE PATIENT IS NOT TO INCREASE DOSING OR TIMING OF THEIR PAIN MEDICATION WITHOUT SPECIFIC DIRECTION OF THEIR PAIN CENTERPROVIDER (NOT ER OR OTHER PROVIDERS). 3) ALL PAIN MEDS ARE TO BE KEPT SECURED, IN A LOCKED BOX. 4) NO PAIN MEDS ARE TO BE SHARED WITH ANY OTHER PERSON FOR ANY REASON. 5) NO PAIN MEDS MAY BE TAKEN FROM ANY FRIENDS OR RELATIVES FOR ANY REASON 6) NO MEDS OR SUBSTANCES WHICH ARE NOT LEGAL ARE TO BE USED- NO MARIJUANA, NO COCAINE, AMPHETAMINES, HEROIN, OR OTHERS ARE EVER TO BE USED. 7)URINE TESTING IS DONE TO ACCOUNT FOR MEDS AND SUBSTANCES BEING TAKEN AND WILL BE DONE RANDOMLY. PROCEDURE CODES FA211 ESTABILISHED PATIENT [facility] CHARGE DISPOSITION & COMMUNICATION FOLLOW UP 3 MONTHS ELECTRONICALLY SIGNED BY BEBO RUTHERFORD ON 09/15/2018 AT 02:39 PM EDT DISCLAIMER : THIS IS A VISIT SUMMARY EXTRACTED FROM THE [employer] CHART. IT IS NOT A COPY OF THE [employer] PROGRESS NOTE. MTDD
== END ==
LOC: M PAIN 08:30
PROVIDERS: ATTEND Nurse Practitioner Family
DX: M96.1 Postlaminectomy syndrome, not elsewhere classified (principal); M79.672 Pain in left foot; I10 Essential (primary) hypertension; F32.9 Major depressive disorder, single episode, unspecified; J30.2 Other seasonal allergic rhinitis; R73.03 Prediabetes; Z79.84 Long term (current) use of oral hypoglycemic drugs; Z79.899 Other long term (current) drug therapy; Z79.891 Long term (current) use of opiate analgesic; Z88.1 Allergy status to other antibiotic agents; Z89.422 Acquired absence of other left toe(s)

== ENCOUNTER → 2018-12-03 | Outpatient (CLI) | payer BC ==
[~2018-12-03] MED LIST changes: -BACTDSTA PO; +SULF1TAB23 PO; +TRAZ1TAB6 PO; -TRAZO50TA PO
--- NOTE | 2018-12-16 01:00 | ECWPNPC ---
PATIENT NAME: MARIA C MÉNDEZ : 1970 GENDER: MALE VISIT DATE: 12/03/2018 DISCHARGE DATE: 12/03/18 0932 VISIT LOCKED DATE TIME: PHYSICIAN: CHAD VOGT RESOURCE: CHAD VOGT REASON FOR APPOINTMENT 1. 3 MONTHS HISTORY OF PRESENT ILLNESS HISTORY OF PRESENT ILLNESS: HERE FOR F/U OF CHRONIC LBP AND LEFT LEG PAIN.RATING PAIN VAS 6/10.WAS NOT ABLE TO TOLERATE GABAPENTIN OR CYCLOBENZAPRINE DUE TO FATIGUE EVEN AT LOW DOSES.HAS BEEN ABLE TO REDUCE OXYCODONE FROM 5 TO 4 1/2 TABLETS.GOAL IS TO SLOWLY REDUCE OPIOD PAIN MEDICATION. PAIN THE PATIENT DESCRIBES THE PAIN... FALL RISK SCREENING: SCREENING :NO FALLS REPORTED IN THE LAST YEAR CURRENT MEDICATIONS TAKING METFORMIN HCL 500 MG TABLET 1 TABLET WITH A MEAL ORALLY BID TAKING BUPROPION HCL ER (SR) 150 MG TABLET EXTENDED RELEASE 12 HOUR 1 TABLET IN THE MORNING ORALLY BID TAKING CYCLOBENZAPRINE HCL 10 MG TABLET 1 TABLET ORALLY THREE TIMES A DAY 3 MONTHS SUPPLY CODE D, NOTES: AT BEDTIME NEEDED TAKING IBUPROFEN 200 MG TABLET 1 TABLET NEEDED ORALLY EVERY 6 HRS TAKING GABAPENTIN 300 MG CAPSULE 1 CAPSULE ORALLY BID, NOTES: TAKES NEEDED TAKING OXYCODONE HCL 20 MG TABLET 1 ORALLY TAKE 1 TAB Q4-6 HRS PRN PAIN MDD5, NOTES: CURRENTLY TAKES 4.5 TABLETS DAILY NOT-TAKING LINEZOLID 600 MG TABLET 1 TABLET ORALLY EVERY 12 HRS NOT-TAKING SILVER SULFADIAZINE 1 % CREAM 1 APPLICATION TO AFFECTED AREA EXTERNALLY ONCE A DAY NOT-TAKING ACETAMINOPHEN 500 MG CAPSULE 2 CAPSULES NEEDED ORALLY EVERY 6 HRS NOT-TAKING IBUPROFEN PM 200-38 MG TABLET 2 TABLETS AT BEDTIME NEEDED ORALLY ONCE A DAY NOT-TAKING AMLODIPINE BESYLATE 10 MG TABLET 1 TABLET ORALLY ONCE A DAY NOT-TAKING MINOCYCLINE HCL 100 MG CAPSULE 1 CAPSULE ORALLY EVERY 12 HRS NOT-TAKING DICLOFENAC SODIUM 75 MG TABLET DELAYED RELEASE 1 TABLET WITH FOOD OR MILK ORALLY TWICE A DAY NOT-TAKING NAPROXEN 250 MG TABLET 2 CAP ORALLY THREE DAILY NEEDED MEDICATION LIST REVIEWED AND RECONCILED WITH THE PATIENT PAST MEDICAL HISTORY MRSA OSTEOMYELITIS OF LEFT FIFTH METATARSAL 08/20/2013 HYPERTENSION DEPRESSION SESONAL ALLERGIES KIDNEYS MISSHAPED INSOMNIA PRE-DIABETES ASCVD 10 YR RISK: 4.3% (DECEMBER 2013) OSTEOMYELITIS LEFT FOOT ALLERGIES AMOXICILLIN: ANAPHYLAXIS - ALLERGY IODINE: ANAPHYLAXIS - ALLERGY SURGICAL HISTORY LUMBAR SPINE REPLACEMENT DR MARVEL MOROCHO 03/20/13 LUMBAR SPINE FUSION 04/03/13 PARTIAL LEFT FOOT AMPUTATION 07/16/18 FAMILY HISTORY FATHER: ALIVE, ALIVE, DIAGNOSED WITH HYPERTENSION MOTHER: ALIVE, ALIVE 4 BROTHER(S) , 1 SISTER(S) - HEALTHY. 2 SON(S) - HEALTHY. SOCIAL HISTORY GENERAL: TOBACCO USE ARE YOU A:NONSMOKER OTHERS AT HOME: SPOUSE. DIET: CARBOHYDRATE CONTROLLED, LOW SALT, LOW SUGAR. LANGUAGE LANGUAGES SPOKEN:ROMANSH RECREATIONAL DRUG USE DRUG USE?NO LEARNING BARRIERS / SPECIAL NEEDS HEARING IMPAIRED?NO VISION IMPAIRED?YES :CORRECTIVE LENSES COGNITIVELY IMPAIRED?NO READINESS TO LEARN?YES LEARNING PREFERENCES?NO LEARNING CAPABILITIES PRESENT?YES EMOTIONAL BARRIERS?NO PAIN CLINIC PFS, CLERGY, PUBLIC HEALTH REFERRALS PFS REFERRAL NEEDED?NO CLERGY REFERRAL NEEDED?NO PUBLIC HEALTH REFERRAL NEEDED?NO WAS THE PROVIDER NOTIFIED OF ANY PERTINENT INFO?NO HAS THE PATIENT BEEN EDUCATED REGARDING HIS/HER PLAN OF CARE?YES HAS THE PATIENT BEEN EDUCATED REGARDING PAIN, THE RISK FOR PAIN, THE IMPORTANCE OF EFFECTIVE PAIN MANAGEMENT, AND THE PAIN ASSESSMENT PROCESS?YES LATEX QUESTIONNAIRE LATEX ALLERGY : HAVE YOU EVER DEVELOPED ANY TYPE OF REACTION AFTER HANDLING LATEX PRODUCTS SUCH RUBBER GLOVES, CONDOMS, DIAPHRAGMS, BALLOONS, SOCKS, OR UNDERWEAR?NO LATEX ALLERGY : HAVE YOU EVER DEVELOPED ANY TYPE OF REACTION DURING OR AFTER DENTAL APPOINTMENT, VAGINAL/RECTAL EXAMINATION, SURGICAL PROCEDURE, OR ANY OTHER EXPOSURE?NO LATEX RISK : HAVE YOU EVER HAD ANY DIFFICULTY BREATHING OR HIVES AFTER EATING OR HANDLING ANY FRUITS, OR VEGETABLES; SUCH KIWI, BANANAS, STONE FRUITS, OR CHESTNUTSNO LATEX RISK : DO YOU HAVE A PREVIOUS PERSONAL HISTORY OF MORE THAN NINE SURGERIES, SPINA BIFIDA, OR REPEATED CATHERTIZATIONS? NO LATEX RISK : ARE YOU FREQUENTLY EXPOSED TO LATEX PRODUCTS IN YOUR OCCUPATION?NO DATE ASKED : 12/03/2018 CAFFEINE CAFFEINE USE?YES HOW OFTEN AND HOW MUCH? COFFEE DAILY ADVANCE DIRECTIVE ADVANCE DIRECTIVE DISCUSSED WITH PATIENT:YES STATES HCP IS HIS - ALYSSIA MÉNDEZ; NO DOCUMENT PROVIDED [id number] STATUS: . ALCOHOL SCREENING DID YOU HAVE A DRINK CONTAINING ALCOHOL IN THE PAST YEAR?NO POINTS0 INTERPRETATIONNEGATIVE REVIEWED WITH PATIENT 04/19/18 1300 JSREVIEWED WITH PATIENT 09/02/18 0857 JSREVIEWED WITH PT 12/03/18 0841 BV. HOSPITALIZATION/MAJOR DIAGNOSTIC PROCEDURE RELATED TO SURGIERIES FOOT INFECTION - OSTEOMYELITIS 04/2018 REVIEW OF SYSTEMS REVIEWED BY: PROVIDER: CHAD LAGUNAS . CONSTITUTIONAL: ANY CHANGE IN YOUR MEDICAL CONDITION? NO . CHILLS NO . FEVER NO . INFECTION: DO YOU HAVE NEW INFECTIONS? NO . DO YOU HAVE HISTORY OF MRSA? YES, HISTORY OF MRSA IN LEFT FOOT THAT WAS TREATED, HAD PARTIAL LEFT FOOT AMPUTATION IN JUL, 2018. . MUSCULOSKELETAL: ANY NEW PATTERNS OF PAIN OR NUMBNESS? PT COMPLAINS OF INCREASING SHOOTING "CRAMPING" PAINS UP LEFT LEG, MOSTLY AT NIGHTTIME . GASTROENTEROLOGY: ANY NEW CHANGE IN BOWEL CONTROL? NO . GENITOURINARY: ANY NEW CHANGE IN BLADDER CONTROL? NO . IS THERE A CHANCE YOU COULD BE ? NO . HEMATOLOGY/LYMPH: DO YOU TAKE ANY BLOOD THINNERS? (FOR EXAMPLE- COUMADIN, PLAVIX, AGGRENOX, PLATEL, PRADAXA, OR XARELTO) NO . WHEN WAS YOUR LAST DOSE? DATE: TIME: . NEUROLOGY: HAVE YOU FALLEN IN THE PAST 12 MONTHS? NO . ANY NEW EXTREMITY NUMBNESS OR WEAKNESS? NO . CARDIOLOGY: DO YOU HAVE A PACEMAKER OR DEFIBRILLATOR? NO . RESPIRATORY: HAVE YOU BEEN SICK IN THE PAST WEEK? NO . FEVER NO . FLU LIKE SYMPTOMS? NO . COUGH NO . INTEGUMENTARY: DO YOU HAVE ANY RASHES OR OPEN SORES? NO . ALLERGIC/IMMUNO: ARE YOU ALLERGIC TO IV DYE? NO . ANY NEW ALLERGIES? NO . PSYCHIATRIC: DO YOU HAVE THOUGHTS OF HURTING YOURSELF OR SOMEONE ELSE? NO . ARE YOU ABUSED, NEGLECTED, OR IN AN UNSAFE ENVIRONMENT? NO . ENDOCRINOLOGY: ARE YOU DIABETIC? YES . OTHER: DO YOU NEED ANY PRESCRIPTIONS? NO . IF YES, PLEASE LIST: ____ . ANY NEW PROBLEMS WITH YOUR MEDICATIONS? YES, PT STATES GABAPENTIN GIVES HIM A "SICK"FEELING WHEN HE TAKES IT . WHEN DID YOU LAST EAT? ____ . WHEN DID YOU LAST DRINK? ____ . WHAT DID YOU LAST DRINK? ____ . NAME OF PERSON DRIVING YOU HOME? ____ . DO YOU HAVE ANY OTHER QUESTIONS OR CONCERNS NO . VITAL SIGNS WT 284.2 LBS, HT 76 IN, BMI 34.59 INDEX, BP 152/91 MM HG, HR 95 /MIN, RR 18 /MIN, TEMP 98.4 F, OXYGEN SAT % 96, NA INITIALS MP 0841, REVIEWED BY: BV. EXAMINATION GENERAL EXAMINATION: GENERAL APPEARANCE:AWAKE,ALERT ,PLEAASANT . PSYCHAFFECT NORMAL . LUNGS:LUNG PRYOR ARE CLEAR TO AUSCULTATION BILATERALLY. GOOD MOVEMENT OF AIR . HEART:S1, S2 IN A REGULAR RATE AND RHYTHM. NO SIGNIFICANT MURMURS, RUBS OR GALLOPS NOTED . ASSESSMENTS LUMBAR POST-LAMINECTOMY SYNDROME - M96.1 (PRIMARY) TREATMENT LUMBAR POST-LAMINECTOMY SYNDROME STOP CYCLOBENZAPRINE HCL TABLET, 10 MG, 1 TABLET, ORALLY, THREE TIMES A DAY 3 MONTHS SUPPLY CODE D, NOTES: AT BEDTIME NEEDED STOP GABAPENTIN CAPSULE, 300 MG, 1 CAPSULE, ORALLY, BID, NOTES: TAKES NEEDED DECREASE OXYCODONE HCL TABLET, 20 MG, 1, ORALLY, 1 TAB Q 4-6HR MDD4, 30 DAY(S), 120, REFILLS 0, NOTES: CURRENTLY TAKES 4.5 TABLETS DAILY START ROPINIROLE HCL TABLET, 0.25 MG, 1 TO 2 TAB, ORALLY, BEFORE BEDTIME, 30 DAY(S), 60, REFILLS 2 NOTES: REDUCE OXYCODONE 20MG TO MAX 4 PER DAY., ISTOP REGISTRY REVIEWED AND DEMONSTRATES COMPLLIANCE. BRINGS IN MEDICATIONS WHICH IS APPROPRIATE FOR WHAT WAS DISPENSED. RECENT URINE TOXICOLOGY REVIEWED. NO UNAUTHORIZED MEDICATIONS. NO ILLICIT SUBSTANCES AND PRESCRIBED MEDICATIONS WERE PRESENT. , RISKS AND BENEFITS OF NARCOTIC/OPIOD MEDICATIONS WERE REVIEWED WITH PATIENT - THIS INCLUDES BUT IS NOT LIMITED TO RISK OF DEPENDANCE/DEVELOPMENT OF ADDICTION, MOOD DISTURBANCE AND DEPRESSION, OSTEOPOROSIS, HORMONAL AND LABIDAL CHANGES, RESPIRATORY DEPRESSION AND . PATIENT IS ADVISED NOT TO DRIVE OR DRINK ALCOHOL WHILE ON THESE MEDICATIONS. PREVENTIVE MEDICINE PAIN CLINIC TEACHING: MEDICATIONS PT GIVEN WRITTEN AND VERBAL EDUCATION ON STARTING ROPINIROLE. PT VERBALIZES UNDERSTANDING OF ALL EDUCATION. SÁNCHEZ TERRY 12/03/2018 9:29:08 AM > . PROCEDURE CODES FA211 ESTABILISHED PATIENT [facility] CHARGE DISPOSITION & COMMUNICATION FOLLOW UP 2 MONTHS ELECTRONICALLY SIGNED BY BEBO RUTHERFORD ON 12/15/2018 AT 08:51 AM EDT DISCLAIMER : THIS IS A VISIT SUMMARY EXTRACTED FROM THE [employer] CHART. IT IS NOT A COPY OF THE [employer] PROGRESS NOTE. TERESO
== END ==
LOC: M PAIN 08:30
PROVIDERS: ATTEND Nurse Practitioner Family
DX: M96.1 Postlaminectomy syndrome, not elsewhere classified (principal); Z86.14 Personal history of Methicillin resistant Staphylococcus aureus infection; I10 Essential (primary) hypertension; Z86.59 Personal history of other mental and behavioral disorders; G47.00 Insomnia, unspecified; R73.03 Prediabetes; Z88.1 Allergy status to other antibiotic agents; Z88.4 Allergy status to anesthetic agent; Z79.84 Long term (current) use of oral hypoglycemic drugs; Z79.891 Long term (current) use of opiate analgesic; Z79.899 Other long term (current) drug therapy

== ENCOUNTER → 2019-03-21 | Outpatient (CLI) | payer BC ==
--- NOTE | 2019-04-05 01:52 | ECWPNPC ---
PATIENT NAME: MARIA C MÉNDEZ : 1970 GENDER: MALE VISIT DATE: 03/21/2019 DISCHARGE DATE: 03/21/19 1004 VISIT LOCKED DATE TIME: PHYSICIAN: CHAD VOGT RESOURCE: CHAD VOGT REASON FOR APPOINTMENT 1. 2 MOS HISTORY OF PRESENT ILLNESS HISTORY OF PRESENT ILLNESS: HERE FOR F/U OF CHRONIC LBP AND LEFT LEG PAIN.RATING PAIN VAS 6/10.WAS NOT ABLE TO TOLERATE GABAPENTIN OR CYCLOBENZAPRINE DUE TO FATIGUE EVEN AT LOW DOSES.HAS BEEN ABLE TO REDUCE OXYCODONE FROM 5 TO 4 1/2 TABLETS.GOAL IS TO SLOWLY REDUCE OPIOD PAIN MEDICATION.ROPINEROLE .25 TAB AT NIGHT HASNT BEEN THAT HELPFUL.SUFFERS FROM INTERUPTED SLEEP AT NIGHT DUE TO SHOOTING PAIN DOWN LEFT LEG.HX OF SPINAL FUSION WITH COMPLICATIONS OF MRSA 4 YEARS AGO.DISCUSSED POTENTIAL INTERVENTIONAL OPTIONS TO INCLUDE DCS TRIAL.WILL DISCUSS CASE WITH DR. CHAVEZ. PAIN THE PATIENT DESCRIBES THE PAIN... THE PATIENT DESCRIBES THE PAIN... FALL RISK SCREENING: SCREENING :NO FALLS REPORTED IN THE LAST YEAR CURRENT MEDICATIONS TAKING BUPROPION HCL ER (SR) 150 MG TABLET EXTENDED RELEASE 12 HOUR 1 TABLET IN THE MORNING ORALLY BID TAKING IBUPROFEN 200 MG TABLET 1 TABLET NEEDED ORALLY EVERY 6 HRS TAKING ROPINIROLE HCL 0.25 MG TABLET 1 TO 2 TAB ORALLY BEFORE BEDTIME TAKING OXYCODONE HCL 20 MG TABLET 1 ORALLY 1 TAB Q 4-6HR MDD4, NOTES: CURRENTLY TAKES 4.5 TABLETS DAILY NOT-TAKING METFORMIN HCL 500 MG TABLET 1 TABLET WITH A MEAL ORALLY BID NOT-TAKING LINEZOLID 600 MG TABLET 1 TABLET ORALLY EVERY 12 HRS NOT-TAKING SILVER SULFADIAZINE 1 % CREAM 1 APPLICATION TO AFFECTED AREA EXTERNALLY ONCE A DAY NOT-TAKING ACETAMINOPHEN 500 MG CAPSULE 2 CAPSULES NEEDED ORALLY EVERY 6 HRS NOT-TAKING IBUPROFEN PM 200-38 MG TABLET 2 TABLETS AT BEDTIME NEEDED ORALLY ONCE A DAY NOT-TAKING AMLODIPINE BESYLATE 10 MG TABLET 1 TABLET ORALLY ONCE A DAY NOT-TAKING MINOCYCLINE HCL 100 MG CAPSULE 1 CAPSULE ORALLY EVERY 12 HRS NOT-TAKING DICLOFENAC SODIUM 75 MG TABLET DELAYED RELEASE 1 TABLET WITH FOOD OR MILK ORALLY TWICE A DAY NOT-TAKING NAPROXEN 250 MG TABLET 2 CAP ORALLY THREE DAILY NEEDED MEDICATION LIST REVIEWED AND RECONCILED WITH THE PATIENT PAST MEDICAL HISTORY MRSA OSTEOMYELITIS OF LEFT FIFTH METATARSAL 08/20/2013 HYPERTENSION DEPRESSION SESONAL ALLERGIES KIDNEYS MISSHAPED INSOMNIA PRE-DIABETES ASCVD 10 YR RISK: 4.3% (DECEMBER 2013) OSTEOMYELITIS LEFT FOOT ALLERGIES AMOXICILLIN: ANAPHYLAXIS - ALLERGY IODINE: ANAPHYLAXIS - ALLERGY SURGICAL HISTORY LUMBAR SPINE REPLACEMENT DR MARVEL MOROCHO 03/20/13 LUMBAR SPINE FUSION 04/03/13 PARTIAL LEFT FOOT AMPUTATION 07/16/18 FAMILY HISTORY FATHER: ALIVE, ALIVE, DIAGNOSED WITH HYPERTENSION MOTHER: ALIVE, ALIVE 4 BROTHER(S) , 1 SISTER(S) - HEALTHY. 2 SON(S) - HEALTHY. SOCIAL HISTORY GENERAL: TOBACCO USE ARE YOU A:NONSMOKER OTHERS AT HOME: SPOUSE. DIET: CARBOHYDRATE CONTROLLED, LOW SALT, LOW SUGAR. LANGUAGE LANGUAGES SPOKEN:[place] RECREATIONAL DRUG USE DRUG USE?NO LEARNING BARRIERS / SPECIAL NEEDS HEARING IMPAIRED?NO VISION IMPAIRED?YES COGNITIVELY IMPAIRED?NO :CORRECTIVE LENSES READINESS TO LEARN?YES LEARNING PREFERENCES?NO LEARNING CAPABILITIES PRESENT?YES EMOTIONAL BARRIERS?NO PAIN CLINIC PFS, CLERGY, PUBLIC HEALTH REFERRALS PFS REFERRAL NEEDED?NO CLERGY REFERRAL NEEDED?NO PUBLIC HEALTH REFERRAL NEEDED?NO WAS THE PROVIDER NOTIFIED OF ANY PERTINENT INFO?NO HAS THE PATIENT BEEN EDUCATED REGARDING HIS/HER PLAN OF CARE?YES HAS THE PATIENT BEEN EDUCATED REGARDING PAIN, THE RISK FOR PAIN, THE IMPORTANCE OF EFFECTIVE PAIN MANAGEMENT, AND THE PAIN ASSESSMENT PROCESS?YES LATEX QUESTIONNAIRE LATEX ALLERGY : HAVE YOU EVER DEVELOPED ANY TYPE OF REACTION AFTER HANDLING LATEX PRODUCTS SUCH RUBBER GLOVES, CONDOMS, DIAPHRAGMS, BALLOONS, SOCKS, OR UNDERWEAR?NO LATEX ALLERGY : HAVE YOU EVER DEVELOPED ANY TYPE OF REACTION DURING OR AFTER DENTAL APPOINTMENT, VAGINAL/RECTAL EXAMINATION, SURGICAL PROCEDURE, OR ANY OTHER EXPOSURE?NO DATE ASKED : 12/03/2018 LATEX RISK : HAVE YOU EVER HAD ANY DIFFICULTY BREATHING OR HIVES AFTER EATING OR HANDLING ANY FRUITS, OR VEGETABLES; SUCH KIWI, BANANAS, STONE FRUITS, OR CHESTNUTSNO LATEX RISK : DO YOU HAVE A PREVIOUS PERSONAL HISTORY OF MORE THAN NINE SURGERIES, SPINA BIFIDA, OR REPEATED CATHERIZATIONS? NO LATEX RISK : ARE YOU FREQUENTLY EXPOSED TO LATEX PRODUCTS IN YOUR OCCUPATION?NO CAFFEINE CAFFEINE USE?YES HOW OFTEN AND HOW MUCH? COFFEE DAILY ADVANCE DIRECTIVE ADVANCE DIRECTIVE DISCUSSED WITH PATIENT:YES STATES HCP IS HIS - ALYSSIA MÉNDEZ; NO DOCUMENT PROVIDED TAOISM [id number] PENTECOSTALISM MARITAL STATUS: . ALCOHOL SCREENING DID YOU HAVE A DRINK CONTAINING ALCOHOL IN THE PAST YEAR?NO POINTS0 INTERPRETATIONNEGATIVE REVIEWED WITH PATIENT 04/19/18 1300 JSREVIEWED WITH PATIENT 09/02/18 0857 JSREVIEWED WITH PT 12/03/18 0841 BVREVIEWED WITH PATIENT 03/21/19 0911 LAS. HOSPITALIZATION/MAJOR DIAGNOSTIC PROCEDURE RELATED TO SURGIERIES FOOT INFECTION - OSTEOMYELITIS 04/2018 REVIEW OF SYSTEMS REVIEWED BY: PROVIDER: CHAD LAGUNAS . CONSTITUTIONAL: ANY CHANGE IN YOUR MEDICAL CONDITION? NO . CHILLS NO . FEVER NO . INFECTION: DO YOU HAVE NEW INFECTIONS? NO . DO YOU HAVE HISTORY OF MRSA? YES . MUSCULOSKELETAL: ANY NEW PATTERNS OF PAIN OR NUMBNESS? NO . GASTROENTEROLOGY: ANY NEW CHANGE IN BOWEL CONTROL? NO . GENITOURINARY: ANY NEW CHANGE IN BLADDER CONTROL? NO . IS THERE A CHANCE YOU COULD BE ? NO . HEMATOLOGY/LYMPH: DO YOU TAKE ANY BLOOD THINNERS? (FOR EXAMPLE- COUMADIN, PLAVIX, AGGRENOX, PLATEL, PRADAXA, OR XARELTO) NO . WHEN WAS YOUR LAST DOSE? DATE: TIME: . NEUROLOGY: HAVE YOU FALLEN IN THE PAST 12 MONTHS? YES PT REPORTS A FALL LAST JUNE . ANY NEW EXTREMITY NUMBNESS OR WEAKNESS? NO . CARDIOLOGY: DO YOU HAVE A PACEMAKER OR DEFIBRILLATOR? NO . RESPIRATORY: HAVE YOU BEEN SICK IN THE PAST WEEK? NO . FEVER NO . FLU LIKE SYMPTOMS? NO . COUGH NO . INTEGUMENTARY: DO YOU HAVE ANY RASHES OR OPEN SORES? NO . ALLERGIC/IMMUNO: ARE YOU ALLERGIC TO IV DYE? YES . ANY NEW ALLERGIES? NO . PSYCHIATRIC: DO YOU HAVE THOUGHTS OF HURTING YOURSELF OR SOMEONE ELSE? NO . ARE YOU ABUSED, NEGLECTED, OR IN AN UNSAFE ENVIRONMENT? NO . ENDOCRINOLOGY: ARE YOU DIABETIC? YES . OTHER: DO YOU NEED ANY PRESCRIPTIONS? YES . IF YES, PLEASE LIST: ____OXYCODONE . ANY NEW PROBLEMS WITH YOUR MEDICATIONS? NO . WHEN DID YOU LAST EAT? ____ . WHEN DID YOU LAST DRINK? ____ . WHAT DID YOU LAST DRINK? ____ . NAME OF PERSON DRIVING YOU HOME? ____ . DO YOU HAVE ANY OTHER QUESTIONS OR CONCERNS NO . VITAL SIGNS WT 284.8 LBS, HT 76 IN, BMI 34.66 INDEX, BP 140/76 MM HG, HR 93 /MIN, RR 18 /MIN, TEMP 96.9 F, OXYGEN SAT % 99%, NA INITIALS SC 09:20. EXAMINATION GENERAL EXAMINATION: GENERALAWAKE,ALERT ,PLEAASANT . PSYCHAFFECT NORMAL . LUNGS:LUNG PRYOR ARE CLEAR TO AUSCULTATION BILATERALLY. GOOD MOVEMENT OF AIR . HEART:S1, S2 IN A REGULAR RATE AND RHYTHM. NO SIGNIFICANT MURMURS, RUBS OR GALLOPS NOTED . ASSESSMENTS LUMBAR POST-LAMINECTOMY SYNDROME - M96.1 (PRIMARY) TREATMENT LUMBAR POST-LAMINECTOMY SYNDROME CONTINUE ROPINIROLE HCL TABLET, 0.25 MG, 1 TO 2 TAB, ORALLY, BEFORE BEDTIME REFILL OXYCODONE HCL TABLET, 20 MG, 1, ORALLY, 1 TAB Q 4-6HR MDD4, 30 DAY(S), 120, REFILLS 0, NOTES: CURRENTLY TAKES 4.5 TABLETS DAILY NOTES: ISTOP REGISTRY REVIEWED AND DEMONSTRATES COMPLLIANCE. (REF # ) BRINGS IN MEDICATIONS WHICH IS APPROPRIATE FOR WHAT WAS DISPENSED. RECENT URINE TOXICOLOGY REVIEWED. NO UNAUTHORIZED MEDICATIONS. NO ILLICIT SUBSTANCES AND PRESCRIBED MEDICATIONS WERE PRESENT. URINE TOX TODAY, RISKS AND BENEFITS OF NARCOTIC/OPIOD MEDICATIONS WERE REVIEWED WITH PATIENT - THIS INCLUDES BUT IS NOT LIMITED TO RISK OF DEPENDANCE/DEVELOPMENT OF ADDICTION, MOOD DISTURBANCE AND DEPRESSION, OSTEOPOROSIS, HORMONAL AND LABIDAL CHANGES, RESPIRATORY DEPRESSION AND . PATIENT IS ADVISED NOT TO DRIVE OR DRINK ALCOHOL WHILE ON THESE MEDICATIONS. PROCEDURE CODES FA211 ESTABILISHED PATIENT [facility] CHARGE DISPOSITION & COMMUNICATION FOLLOW UP 2 MONTHS Sonido BONILLA (REASON: DISCUSS DCS) ELECTRONICALLY SIGNED BY BEBO RUTHERFORD ON 04/04/2019 AT 01:48 PM EDT DISCLAIMER : THIS IS A VISIT SUMMARY EXTRACTED FROM THE [email or web address] CHART. IT IS NOT A COPY OF THE [email or web address] PROGRESS NOTE. MTDD
== END ==
LOC: M PAIN 09:00
PROVIDERS: ATTEND Nurse Practitioner Family
DX: M96.1 Postlaminectomy syndrome, not elsewhere classified (principal); Z86.14 Personal history of Methicillin resistant Staphylococcus aureus infection; I10 Essential (primary) hypertension; Z86.59 Personal history of other mental and behavioral disorders; G47.00 Insomnia, unspecified; E11.9 Type 2 diabetes mellitus without complications; Z88.1 Allergy status to other antibiotic agents; Z88.3 Allergy status to other anti-infective agents; Z79.891 Long term (current) use of opiate analgesic; Z79.899 Other long term (current) drug therapy

== ENCOUNTER → 2019-05-23 | Outpatient (CLI) | payer BC ==
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
== END ==
LOC: M PAIN 16:00
PROVIDERS: ATTEND Anesthesiology
DX: M79.18 Myalgia, other site (principal); M96.1 Postlaminectomy syndrome, not elsewhere classified; M47.816 Spondylosis without myelopathy or radiculopathy, lumbar region; Z86.14 Personal history of Methicillin resistant Staphylococcus aureus infection; I10 Essential (primary) hypertension; Z86.59 Personal history of other mental and behavioral disorders; G47.00 Insomnia, unspecified; E11.9 Type 2 diabetes mellitus without complications; Z88.1 Allergy status to other antibiotic agents; Z88.3 Allergy status to other anti-infective agents; Z79.84 Long term (current) use of oral hypoglycemic drugs; Z79.891 Long term (current) use of opiate analgesic; Z79.899 Other long term (current) drug therapy

== ENCOUNTER → 2019-08-22 | Outpatient (CLI) | payer BC ==
[~2019-08-22] MED LIST changes: +BUPIVACAINE HCL 0.25% 30 ML VIAL As Ordered ONE; +TRIAMCINOLONE ACETONIDE SUSP 40 MG/ML VIAL (J3301) As Ordered ONE; +diazePAM 5 MG TAB As Ordered ONE; +oxyCODONE 5MG TAB As Ordered ONE
--- NOTE | 2019-09-09 06:21 | ECWPNPC ---
PATIENT NAME: MARIA C MÉNDEZ : 1970 GENDER: MALE VISIT DATE: 08/22/2019 DISCHARGE DATE: 08/22/19 1554 VISIT LOCKED DATE TIME: PHYSICIAN: MILKA CHAVEZ MD RESOURCE: MILKA CHAVEZ MD HISTORY OF PRESENT ILLNESS HISTORY OF PRESENT ILLNESS: PAIN THE PATIENT DESCRIBES THE PAIN... FALL RISK SCREENING: SCREENING :NO FALLS REPORTED IN THE LAST YEAR CURRENT MEDICATIONS TAKING ACETAMINOPHEN 500 MG CAPSULE 2 CAPSULES NEEDED ORALLY EVERY 6 HRS, NOTES: 08/21/19 TAKING BUPROPION HCL ER (SR) 150 MG TABLET EXTENDED RELEASE 12 HOUR 1 TABLET IN THE MORNING ORALLY BID, NOTES: 08/22/19 0600 TAKING IBUPROFEN 200 MG TABLET 1 TABLET NEEDED ORALLY EVERY 6 HRS, NOTES: 08/21/19 TAKING OXYCODONE HCL 20 MG TABLET 1 ORALLY 1 TAB Q 4-6HR MDD4, NOTES: 08/22/19 0800 NOT-TAKING LINEZOLID 600 MG TABLET 1 TABLET ORALLY EVERY 12 HRS NOT-TAKING SILVER SULFADIAZINE 1 % CREAM 1 APPLICATION TO AFFECTED AREA EXTERNALLY ONCE A DAY NOT-TAKING IBUPROFEN PM 200-38 MG TABLET 2 TABLETS AT BEDTIME NEEDED ORALLY ONCE A DAY NOT-TAKING AMLODIPINE BESYLATE 10 MG TABLET 1 TABLET ORALLY ONCE A DAY NOT-TAKING MINOCYCLINE HCL 100 MG CAPSULE 1 CAPSULE ORALLY EVERY 12 HRS NOT-TAKING DICLOFENAC SODIUM 75 MG TABLET DELAYED RELEASE 1 TABLET WITH FOOD OR MILK ORALLY TWICE A DAY NOT-TAKING NAPROXEN 250 MG TABLET 2 CAP ORALLY THREE DAILY NEEDED DISCONTINUED METFORMIN HCL 500 MG TABLET 1 TABLET WITH A MEAL ORALLY BID MEDICATION LIST REVIEWED AND RECONCILED WITH THE PATIENT PAST MEDICAL HISTORY MRSA OSTEOMYELITIS OF LEFT FIFTH METATARSAL 08/20/2013 HYPERTENSION DEPRESSION SESONAL ALLERGIES KIDNEYS MISSHAPED INSOMNIA PRE-DIABETES ASCVD 10 YR RISK: 4.3% (DECEMBER 2013) OSTEOMYELITIS LEFT FOOT ALLERGIES AMOXICILLIN: ANAPHYLAXIS - ALLERGY IODINE: ANAPHYLAXIS - ALLERGY SURGICAL HISTORY LUMBAR SPINE REPLACEMENT DR MARVEL MOROCHO 03/20/13 LUMBAR SPINE FUSION 04/03/13 PARTIAL LEFT FOOT AMPUTATION 07/16/18 FAMILY HISTORY FATHER: ALIVE, ALIVE, DIAGNOSED WITH HYPERTENSION MOTHER: ALIVE, ALIVE 4 BROTHER(S) , 1 SISTER(S) - HEALTHY. 2 SON(S) - HEALTHY. SOCIAL HISTORY GENERAL: TOBACCO USE ARE YOU A:NONSMOKER OTHERS AT HOME: SPOUSE. DIET: CARBOHYDRATE CONTROLLED, LOW SALT, LOW SUGAR. LANGUAGE LANGUAGES SPOKEN:[place] RECREATIONAL DRUG USE DRUG USE?NO LEARNING BARRIERS / SPECIAL NEEDS HEARING IMPAIRED?NO VISION IMPAIRED?YES COGNITIVELY IMPAIRED?NO :CORRECTIVE LENSES READINESS TO LEARN?YES LEARNING PREFERENCES?NO LEARNING CAPABILITIES PRESENT?YES EMOTIONAL BARRIERS?NO PAIN CLINIC PFS, CLERGY, PUBLIC HEALTH REFERRALS PFS REFERRAL NEEDED?NO CLERGY REFERRAL NEEDED?NO PUBLIC HEALTH REFERRAL NEEDED?NO WAS THE PROVIDER NOTIFIED OF ANY PERTINENT INFO?NO HAS THE PATIENT BEEN EDUCATED REGARDING HIS/HER PLAN OF CARE?YES HAS THE PATIENT BEEN EDUCATED REGARDING PAIN, THE RISK FOR PAIN, THE IMPORTANCE OF EFFECTIVE PAIN MANAGEMENT, AND THE PAIN ASSESSMENT PROCESS?YES LATEX QUESTIONNAIRE LATEX ALLERGY : HAVE YOU EVER DEVELOPED ANY TYPE OF REACTION AFTER HANDLING LATEX PRODUCTS SUCH RUBBER GLOVES, CONDOMS, DIAPHRAGMS, BALLOONS, SOCKS, OR UNDERWEAR?NO LATEX ALLERGY : HAVE YOU EVER DEVELOPED ANY TYPE OF REACTION DURING OR AFTER DENTAL APPOINTMENT, VAGINAL/RECTAL EXAMINATION, SURGICAL PROCEDURE, OR ANY OTHER EXPOSURE?NO DATE ASKED : 12/03/2018 LATEX RISK : HAVE YOU EVER HAD ANY DIFFICULTY BREATHING OR HIVES AFTER EATING OR HANDLING ANY FRUITS, OR VEGETABLES; SUCH KIWI, BANANAS, STONE FRUITS, OR CHESTNUTSNO LATEX RISK : DO YOU HAVE A PREVIOUS PERSONAL HISTORY OF MORE THAN NINE SURGERIES, SPINA BIFIDA, OR REPEATED CATHERIZATIONS? NO LATEX RISK : ARE YOU FREQUENTLY EXPOSED TO LATEX PRODUCTS IN YOUR OCCUPATION?NO CAFFEINE CAFFEINE USE?YES HOW OFTEN AND HOW MUCH? COFFEE DAILY ADVANCE DIRECTIVE ADVANCE DIRECTIVE DISCUSSED WITH PATIENT:YES STATES HCP IS HIS - ALYSSIA MÉNDEZ; NO DOCUMENT PROVIDED VOODOO [id number] YAZDANISM MARITAL STATUS: . ALCOHOL SCREENING DID YOU HAVE A DRINK CONTAINING ALCOHOL IN THE PAST YEAR?NO POINTS0 INTERPRETATIONNEGATIVE REVIEWED WITH PATIENT 04/19/18 1300 JSREVIEWED WITH PATIENT 09/02/18 0857 JSREVIEWED WITH PT 12/03/18 0841 BVREVIEWED WITH PATIENT 03/21/19 0911 LAS. HOSPITALIZATION/MAJOR DIAGNOSTIC PROCEDURE RELATED TO SURGIERIES FOOT INFECTION - OSTEOMYELITIS 04/2018 REVIEW OF SYSTEMS REVIEWED BY: PROVIDER: . CONSTITUTIONAL: ANY CHANGE IN YOUR MEDICAL CONDITION? NO . CHILLS NO . FEVER NO . INFECTION: DO YOU HAVE NEW INFECTIONS? NO . DO YOU HAVE HISTORY OF MRSA? YES . MUSCULOSKELETAL: ANY NEW PATTERNS OF PAIN OR NUMBNESS? NO . GASTROENTEROLOGY: ANY NEW CHANGE IN BOWEL CONTROL? NO . GENITOURINARY: ANY NEW CHANGE IN BLADDER CONTROL? NO . IS THERE A CHANCE YOU COULD BE ? NO . HEMATOLOGY/LYMPH: DO YOU TAKE ANY BLOOD THINNERS? (FOR EXAMPLE- COUMADIN, PLAVIX, AGGRENOX, PLATEL, PRADAXA, OR XARELTO) NO . WHEN WAS YOUR LAST DOSE? DATE: TIME: . NEUROLOGY: HAVE YOU FALLEN IN THE PAST 12 MONTHS? NO . ANY NEW EXTREMITY NUMBNESS OR WEAKNESS? NO . CARDIOLOGY: DO YOU HAVE A PACEMAKER OR DEFIBRILLATOR? NO . RESPIRATORY: HAVE YOU BEEN SICK IN THE PAST WEEK? NO . FEVER NO . FLU LIKE SYMPTOMS? NO . COUGH NO . INTEGUMENTARY: DO YOU HAVE ANY RASHES OR OPEN SORES? NO . ALLERGIC/IMMUNO: ARE YOU ALLERGIC TO IV DYE? YES . ANY NEW ALLERGIES? NO . PSYCHIATRIC: DO YOU HAVE THOUGHTS OF HURTING YOURSELF OR SOMEONE ELSE? NO . ARE YOU ABUSED, NEGLECTED, OR IN AN UNSAFE ENVIRONMENT? NO . ENDOCRINOLOGY: ARE YOU DIABETIC? NO . OTHER: DO YOU NEED ANY PRESCRIPTIONS? NO . IF YES, PLEASE LIST: ____ . ANY NEW PROBLEMS WITH YOUR MEDICATIONS? NO . WHEN DID YOU LAST EAT? 08/22/19 07 . WHEN DID YOU LAST DRINK? 08/22/19699 . WHAT DID YOU LAST DRINK? WATER . NAME OF PERSON DRIVING YOU HOME? . DO YOU HAVE ANY OTHER QUESTIONS OR CONCERNS NO . VITAL SIGNS WT 294 LBS, HT 76 IN, BMI 35.78 INDEX, BP 147/80 MM HG, HR 90 /MIN, RR 18 /MIN, TEMP 96.8 F, OXYGEN SAT % 100%, SAFE IN ENV? (Y/N) Y, NA INITIALS AW 1424, REVIEWED BY: EM. ASSESSMENTS MYALGIA, OTHER SITE - M79.18 (PRIMARY) PROCEDURES PN TRIGGER POINT INJECTION WITH STEROIDS PRE PROCEDURE DIAGNOSIS 1. MYALGIA 2. PAIN AT RIGHT LUMBAR AREA. POST PROCEDURE DIAGNOSIS 1. MYALGIA 2. PAIN AT RIGHT LUMBAR AREA. PROCEDURE TRIGGER POINT INJECTION AT RIGHT LUMBAR AREA. SURGEON DR. MILKA CHAVEZ TABLE GAMES MANAGER NONE ANESTHESIA LOCAL PRE PROCEDURE NOTE THE PATIENT HAS A HISTORY OF CHRONIC PAIN AT THE RIGHT LUMBAR AREA. I EVALUATE THE PATIENT AND REVIEWED THE CHART. THERE IS EVIDENCE OF BANDS OF TISSUE WITH RESTRICTION OF MOVEMENT AND PRESENCE OF TRIGGER POINT AT THE AFFECTED AREA. I WENT OVER THE RISKS, ALTERNATIVES, AND BENEFITS ASSOCIATED WITH THIS PROCEDURE. THE PATIENT WOULD LIKE TO PROCEED AND GIVE CONSENT TO PERFORMED THE PROCEDURE. THE PATIENT DENIES UNEXPLAINABLE WEIGHT LOSS, FEVER, CHILLS, OR NEW CHANGES IN URINARY OR BOWEL CONTROL DESCRIPTION OF PROCEDURE THE PATIENT WAS BROUGHT TO THE PROCEDURE ROOM AND PLACED IN THE SITTING POSITION. THE AREA WAS CLEANED WITH ALCOHOL. THE PROCEDURE WAS DONE USING ASEPTIC STERILE TECHNIQUE. I CHECKED LATERALITY AND THE LEVEL WHERE THE PROCEDURE WAS GOING TO BE PERFORMED WITH THE PATIENT AND THE SUPPORTING STAFF AT THE MOMENT OF THE TIME OUT IN THE PROCEDURE ROOM. USING A 25-GAUGE NEEDLE, TRIGGER POINTS WERE INJECTED AT THE RIGHT LUMBAR AREA WITH A TOTAL OF 40 ML OF BUPIVACAINE 0.25% AND KENALOG 40 MG. THERE WAS NO EVIDENCE OF BLOOD, PARESTHESIA OR CEREBROSPINAL FLUID DURING THE PROCEDURE. THE PATIENT WAS SENT TO THE RECOVERY ROOM. THE PATIENT WAS MOVING THE EXTREMITIES AND DOING WELL. THERE WAS NO COMPLICATION DURING THE PROCEDURE POST PROCEDURE NOTE THE PATIENT WILL BE SEEN IN A FOLLOW UP IN THE NEXT FEW WEEKS. INSTRUCTIONS WERE GIVEN, QUESTIONS WERE ANSWERED, AND THE PATIENT EXPRESSED UNDERSTANDING AND AGREES WITH THE PLAN. I, [employer], DOCUMENTED THE ABOVE INFORMATION ACTING A SCRIBE FOR DR. CHAVEZ. I HAVE REVIEWED THE ABOVE DOCUMENT, WRITTEN BY [employer]IS [employer]BBS SCRIBE AND I VERIFY THAT IT IS ACCURATE. PROCEDURE CODES 74888 INJ TRIGGER POINT 07/10 [facility] DISPOSITION & COMMUNICATION FOLLOW UP 3 WEEKS ELECTRONICALLY SIGNED BY MILKA CHAVEZ MD, MD ON 09/08/2019 AT 01:25 PM EST DISCLAIMER : THIS IS A VISIT SUMMARY EXTRACTED FROM THE [employer] CHART. IT IS NOT A COPY OF THE [employer] PROGRESS NOTE. TERESO
== END ==
LOC: M PAIN 14:00
PROVIDERS: ATTEND Anesthesiology
DX: M79.18 Myalgia, other site (principal)
CPT/HCPCS: 20552; J3301

== ENCOUNTER → 2019-09-01 | Outpatient (CLI) | payer BC ==
[~2019-09-01] MED LIST changes: -BUPIVACAINE HCL 0.25% 30 ML VIAL As Ordered ONE; -TRIAMCINOLONE ACETONIDE SUSP 40 MG/ML VIAL (J3301) As Ordered ONE; -diazePAM 5 MG TAB As Ordered ONE; -oxyCODONE 5MG TAB As Ordered ONE
--- NOTE | 2019-09-03 04:49 | ECWPNPC ---
PATIENT NAME: MARIA C MÉNDEZ : 1970 GENDER: MALE VISIT DATE: 09/01/2019 DISCHARGE DATE: 09/01/19 1004 VISIT LOCKED DATE TIME: PHYSICIAN: CHAD VOGT RESOURCE: CHAD VOGT REASON FOR APPOINTMENT 1. POST TPI HISTORY OF PRESENT ILLNESS HISTORY OF PRESENT ILLNESS: JUAN J IS HERE FOR POST PROCEDURE FOLLOW-UP. HAD TRIGGER POINT INJECTIONS TO THE LOWER BACK ON 08/22/2019. REPORTING MARKED REDUCTION IN RIGHT HIP PAIN AND LOW BACK PAIN, POST PROCEDURE, WHICH CONTINUES TODAY. CHIEF AREA OF PAIN IS CENTRAL LOW BACK. RATING PAIN LEVEL 4-6/10 VAS[address] HAS [address] CHAVEZ ABOUT DORSAL COLUMN STIMULATOR. DR. CHAVEZ WILL BE MOVING FORWARD WITH DOING SOME INTERVENTIONAL TREATMENT FIRST AND THEN HE WOULD BE CONSIDERED A CANDIDATE FOR DORSAL COLUMN STIMULATOR TRIAL IF PAIN PERSISTS. PAIN THE PATIENT DESCRIBES THE PAIN... FALL RISK SCREENING: SCREENING :NO FALLS REPORTED IN THE LAST YEAR CURRENT MEDICATIONS TAKING ACETAMINOPHEN 500 MG CAPSULE 2 CAPSULES NEEDED ORALLY EVERY 6 HRS, NOTES: 08/21/19 TAKING BUPROPION HCL ER (SR) 150 MG TABLET EXTENDED RELEASE 12 HOUR 1 TABLET IN THE MORNING ORALLY BID, NOTES: 08/22/19 0600 TAKING IBUPROFEN 200 MG TABLET 1 TABLET NEEDED ORALLY EVERY 6 HRS, NOTES: 08/21/19 TAKING OXYCODONE HCL 20 MG TABLET 1 ORALLY 1 TAB Q 4-6HR MDD4, NOTES: 08/22/19 0800 NOT-TAKING LINEZOLID 600 MG TABLET 1 TABLET ORALLY EVERY 12 HRS NOT-TAKING SILVER SULFADIAZINE 1 % CREAM 1 APPLICATION TO AFFECTED AREA EXTERNALLY ONCE A DAY NOT-TAKING IBUPROFEN PM 200-38 MG TABLET 2 TABLETS AT BEDTIME NEEDED ORALLY ONCE A DAY NOT-TAKING AMLODIPINE BESYLATE 10 MG TABLET 1 TABLET ORALLY ONCE A DAY NOT-TAKING MINOCYCLINE HCL 100 MG CAPSULE 1 CAPSULE ORALLY EVERY 12 HRS NOT-TAKING DICLOFENAC SODIUM 75 MG TABLET DELAYED RELEASE 1 TABLET WITH FOOD OR MILK ORALLY TWICE A DAY NOT-TAKING NAPROXEN 250 MG TABLET 2 CAP ORALLY THREE DAILY NEEDED MEDICATION LIST REVIEWED AND RECONCILED WITH THE PATIENT PAST MEDICAL HISTORY MRSA OSTEOMYELITIS OF LEFT FIFTH METATARSAL 08/20/2013 HYPERTENSION DEPRESSION SESONAL ALLERGIES KIDNEYS MISSHAPED INSOMNIA PRE-DIABETES ASCVD 10 YR RISK: 4.3% (DECEMBER 2013) OSTEOMYELITIS LEFT FOOT ALLERGIES AMOXICILLIN: ANAPHYLAXIS - ALLERGY IODINE: ANAPHYLAXIS - ALLERGY SURGICAL HISTORY LUMBAR SPINE REPLACEMENT DR GRIER SOS 03/20/13 LUMBAR SPINE FUSION 04/03/13 PARTIAL LEFT FOOT AMPUTATION 07/16/18 FAMILY HISTORY FATHER: ALIVE, ALIVE, DIAGNOSED WITH HYPERTENSION MOTHER: ALIVE, ALIVE 4 BROTHER(S) , 1 SISTER(S) - HEALTHY. 2 SON(S) - HEALTHY. SOCIAL HISTORY GENERAL: TOBACCO USE ARE YOU A:NONSMOKER OTHERS AT HOME: SPOUSE. DIET: CARBOHYDRATE CONTROLLED, LOW SALT, LOW SUGAR. LANGUAGE LANGUAGES SPOKEN:[place] RECREATIONAL DRUG USE DRUG USE?NO LEARNING BARRIERS / SPECIAL NEEDS HEARING IMPAIRED?NO VISION IMPAIRED?YES COGNITIVELY IMPAIRED?NO :CORRECTIVE LENSES READINESS TO LEARN?YES LEARNING PREFERENCES?NO LEARNING CAPABILITIES PRESENT?YES EMOTIONAL BARRIERS?NO PAIN CLINIC PFS, CLERGY, PUBLIC HEALTH REFERRALS PFS REFERRAL NEEDED?NO CLERGY REFERRAL NEEDED?NO PUBLIC HEALTH REFERRAL NEEDED?NO WAS THE PROVIDER NOTIFIED OF ANY PERTINENT INFO?NO HAS THE PATIENT BEEN EDUCATED REGARDING HIS/HER PLAN OF CARE?YES HAS THE PATIENT BEEN EDUCATED REGARDING PAIN, THE RISK FOR PAIN, THE IMPORTANCE OF EFFECTIVE PAIN MANAGEMENT, AND THE PAIN ASSESSMENT PROCESS?YES LATEX QUESTIONNAIRE LATEX ALLERGY : HAVE YOU EVER DEVELOPED ANY TYPE OF REACTION AFTER HANDLING LATEX PRODUCTS SUCH RUBBER GLOVES, CONDOMS, DIAPHRAGMS, BALLOONS, SOCKS, OR UNDERWEAR?NO LATEX ALLERGY : HAVE YOU EVER DEVELOPED ANY TYPE OF REACTION DURING OR AFTER DENTAL APPOINTMENT, VAGINAL/RECTAL EXAMINATION, SURGICAL PROCEDURE, OR ANY OTHER EXPOSURE?NO DATE ASKED : 12/03/2018 LATEX RISK : HAVE YOU EVER HAD ANY DIFFICULTY BREATHING OR HIVES AFTER EATING OR HANDLING ANY FRUITS, OR VEGETABLES; SUCH KIWI, BANANAS, STONE FRUITS, OR CHESTNUTSNO LATEX RISK : DO YOU HAVE A PREVIOUS PERSONAL HISTORY OF MORE THAN NINE SURGERIES, SPINA BIFIDA, OR REPEATED CATHERIZATIONS? NO LATEX RISK : ARE YOU FREQUENTLY EXPOSED TO LATEX PRODUCTS IN YOUR OCCUPATION?NO CAFFEINE CAFFEINE USE?YES HOW OFTEN AND HOW MUCH? COFFEE DAILY ADVANCE DIRECTIVE ADVANCE DIRECTIVE DISCUSSED WITH PATIENT:YES STATES HCP IS HIS - ALYSSIA MÉNDEZ; NO DOCUMENT PROVIDED DRUZE [id number] EVANGELICAL MARITAL STATUS: . ALCOHOL SCREENING DID YOU HAVE A DRINK CONTAINING ALCOHOL IN THE PAST YEAR?NO POINTS0 INTERPRETATIONNEGATIVE REVIEWED WITH PATIENT 04/19/18 1300 JSREVIEWED WITH PATIENT 09/02/18 0857 JSREVIEWED WITH PT 12/03/18 0841 BVREVIEWED WITH PATIENT 03/21/19 0911 LAS. HOSPITALIZATION/MAJOR DIAGNOSTIC PROCEDURE RELATED TO SURGIERIES FOOT INFECTION - OSTEOMYELITIS 04/2018 REVIEW OF SYSTEMS REVIEWED BY: PROVIDER: CHAD LAGUNAS . CONSTITUTIONAL: ANY CHANGE IN YOUR MEDICAL CONDITION? NO . CHILLS NO . FEVER NO . INFECTION: DO YOU HAVE NEW INFECTIONS? NO . DO YOU HAVE HISTORY OF MRSA? NO . MUSCULOSKELETAL: ANY NEW PATTERNS OF PAIN OR NUMBNESS? YES PT REPORTS SINCE TRIGGER POINT INJECTIONS DONE 08/22, PAIN IN RIGHT HIP AND DOWN THIGH IS MUCH IMPROVED, WITH IMPROVED SLEEP AND MOBILITY REPORTED. PAIN IN LOW BACK WAS INITIALLY IMPROVED, BUT RETURNED AFTER 2 DAYS. . GASTROENTEROLOGY: ANY NEW CHANGE IN BOWEL CONTROL? NO . GENITOURINARY: ANY NEW CHANGE IN BLADDER CONTROL? NO . IS THERE A CHANCE YOU COULD BE ? NO . HEMATOLOGY/LYMPH: DO YOU TAKE ANY BLOOD THINNERS? (FOR EXAMPLE- COUMADIN, PLAVIX, AGGRENOX, PLATEL, PRADAXA, OR XARELTO) NO . WHEN WAS YOUR LAST DOSE? DATE: TIME: . NEUROLOGY: HAVE YOU FALLEN IN THE PAST 12 MONTHS? NO . ANY NEW EXTREMITY NUMBNESS OR WEAKNESS? NO . CARDIOLOGY: DO YOU HAVE A PACEMAKER OR DEFIBRILLATOR? NO . RESPIRATORY: HAVE YOU BEEN SICK IN THE PAST WEEK? NO . FEVER NO . FLU LIKE SYMPTOMS? NO . COUGH NO . INTEGUMENTARY: DO YOU HAVE ANY RASHES OR OPEN SORES? NO . ALLERGIC/IMMUNO: ARE YOU ALLERGIC TO IV DYE? YES . ANY NEW ALLERGIES? NO . PSYCHIATRIC: DO YOU HAVE THOUGHTS OF HURTING YOURSELF OR SOMEONE ELSE? NO . ARE YOU ABUSED, NEGLECTED, OR IN AN UNSAFE ENVIRONMENT? NO . ENDOCRINOLOGY: ARE YOU DIABETIC? NO . OTHER: DO YOU NEED ANY PRESCRIPTIONS? NO . IF YES, PLEASE LIST: ____ . ANY NEW PROBLEMS WITH YOUR MEDICATIONS? NO . WHEN DID YOU LAST EAT? ____ . WHEN DID YOU LAST DRINK? ____ . WHAT DID YOU LAST DRINK? ____ . NAME OF PERSON DRIVING YOU HOME? ____ . DO YOU HAVE ANY OTHER QUESTIONS OR CONCERNS NO . VITAL SIGNS WT 293.0 LBS, HT 76 IN, BMI 35.66 INDEX, BP 145/75 MM HG, HR 83 /MIN, RR 18 /MIN, TEMP 97.7 F, OXYGEN SAT % 99%, SAFE IN ENV? (Y/N) YES, NA INITIALS AW 0916, REVIEWED BY: CAYETANO. EXAMINATION GENERAL EXAMINATION: GENERAL AWAKE,ALERT ,PLEASANT . PSYCH AFFECT NORMAL . LUNGS: LUNG PRYOR ARE CLEAR TO AUSCULTATION BILATERALLY. GOOD MOVEMENT OF AIR . HEART: S1, S2 IN A REGULAR RATE AND RHYTHM. NO SIGNIFICANT MURMURS, RUBS OR GALLOPS NOTED . LUMBAR: PALPATION: + FOR PAIN OVER L/S SPINE. + FOR PAIN OVER L/S PARASPINALS SPECIFIC POINT TENDERNESS OVER LUMBAR FACETS WITH FACET LOADING. NEUROLOGIC EXAM: NORMAL SENSATION LIGHT TOUCH BILAT. LOWER EXTREMITIES . DIAGNOSTIC TESTS REVIEWED MRI L/S SPINE-04/22/19. ASSESSMENTS LUMBAR POST-LAMINECTOMY SYNDROME - M96.1 (PRIMARY) TREATMENT LUMBAR POST-LAMINECTOMY SYNDROME NOTES: ISTOP REGISTRY REVIEWED AND DEMONSTRATES COMPLLIANCE. (REF # ) BRINGS IN MEDICATIONS WHICH IS APPROPRIATE FOR WHAT WAS DISPENSED. RECENT URINE TOXICOLOGY REVIEWED. NO UNAUTHORIZED MEDICATIONS. NO ILLICIT SUBSTANCES AND PRESCRIBED MEDICATIONS WERE PRESENT. BILAT L4/5-L5/S1 LFBTURINE TOX TODAY, RISKS OF NARCOTIC/OPIOD MEDICATIONS INCLUDES BUT IS NOT LIMITED TO RISK OF DEPENDANCE/DEVELOPMENT OF ADDICTION, MOOD DISTURBANCE AND DEPRESSION, OSTEOPOROSIS, HORMONAL AND LABIDAL CHANGES, RESPIRATORY DEPRESSION AND . PATIENT IS ADVISED NOT TO DRIVE OR DRINK ALCOHOL WHILE ON THESE MEDICATIONS. PREVENTIVE MEDICINE PAIN CLINIC TEACHING: PROCEDURE TEACHING INFORMATIONAL HANDOUT FOR LUMBAR EPIDURAL STEROID INJECTIONS PRINTED AND REVIEWED WITH PATIENT. PRE PROCEDURE INSTRUCTIONS REVIEWED WITH PATIENT. PATIENT VERBALIZES UNDERSTANDING. 09/01/2019 PROCEDURE CODES FA211 ESTABILISHED PATIENT [facility] FACILITY CHARGE DISPOSITION & COMMUNICATION FOLLOW UP POST (REASON: BILAT L4/5-L5/S1 LFBT) ELECTRONICALLY SIGNED BY BEBO RUTHERFORD ON 09/02/2019 AT 09:49 AM EST DISCLAIMER : THIS IS A VISIT SUMMARY EXTRACTED FROM THE [employer] CHART. IT IS NOT A COPY OF THE [employer] PROGRESS NOTE. TERESO
== END ==
LOC: M PAIN 09:30
PROVIDERS: ATTEND Nurse Practitioner Family
DX: M96.1 Postlaminectomy syndrome, not elsewhere classified (principal)

== ENCOUNTER → 2019-12-05 | Outpatient (CLI) | payer BC ==
[~2019-12-05] MED LIST changes: +CYCL-707 PO; -CYCL10TA PO
== END ==
LOC: M LABSMTC 09:39
PROVIDERS: ATTEND Anesthesiology
DX: Z11.59 Encounter for screening for other viral diseases (principal)
CPT/HCPCS: C9803; U0003

== ENCOUNTER → 2019-12-08 | Outpatient (CLI) | payer BC ==
[~2019-12-08] MED LIST changes: +BUPIVACAINE HCL 0.25% 30ML VIAL As Ordered ONE; +ISOVUE-M 300 61% 15ML VIAL As Ordered ONE; +LIDOCAINE 1% SDV 30ML VIAL As Ordered ONE; +dexameTHASONE 10MG/1ML VIAL PRES.FREE (J1100 PER 1MG) As Ordered ONE; +diazePAM 5 MG TAB As Ordered ONE; +oxyCODONE 5MG TAB As Ordered ONE
--- NOTE | 2019-12-08 11:46 | REP ---
C-ARM VIEW OF THE LUMBAR SPINE: CLINICAL: Pain. Two C-arm views of the lower lumbar spine performed during bilateral facet block injection performed by Dr. Ramsey. Two needles are seen along the lower lumbar facet joints bilaterally. 40 seconds of fluoroscopy time utilized. Electronically Signed by Elmer Mendiola MD 12/09/2019 01:01 P
--- NOTE | 2019-12-10 01:50 | ECWPNPC ---
PATIENT NAME: MARIA C MÉNDEZ : 1970 GENDER: MALE VISIT DATE: 12/08/2019 DISCHARGE DATE: 12/08/19 1026 VISIT LOCKED DATE TIME: PHYSICIAN: MILKA CHAVEZ MD RESOURCE: MILKA CHAVEZ MD REASON FOR APPOINTMENT 1. THERAPEUTIC LUMBAR FACET BLOCK L4/L5, L5/S1 HISTORY OF PRESENT ILLNESS GENERAL: -. FALL RISK SCREENING: SCREENING :NO FALLS REPORTED IN THE LAST YEAR PAIN SCREENING: PATIENT HAS A COMPLAINT OF ACUTE OR CHRONIC PAIN :YES LOCATION OF PAIN:LOW BACK INTENSITY OF PAIN (SCALE OF 1 TO 10):6 WHAT DOES YOUR PAIN FEEL LIKE:ACHING, CONTINOUS, STABBING STABBING EVERY ONCE IN A WHILE DURATION:CONSTANT PAIN IS INCREASED BY:ACTIVITIES PAIN IS DECREASED BY:USE OF PAIN MEDICATIONS SOMETIMES MEDS HELP NURSING NOTE: -. PAIN CENTER INTAKE QUESTIONS: DO YOU HAVE A HISTORY OF MRSA? :YES DO YOU TAKE A BLOOD THINNERS? :NO DO YOU HAVE ANY BLEEDING DISORDERS? :NO ANY NEW NUMBNESS OR WEAKNESS IN YOUR LEGS OR ARMS? :NO ANY PACEMAKER,DEFIBRILLATOR, OR DORSAL COLUMN STIMULATOR? :NO DO YOU HAVE ANY RASHES OR OPEN SORES? :NO ARE YOU ALLERGIC TO IV DYE? :YES ARE YOU DIABETIC? :NO PATIENT DOES TAKE METFORMIN BID- STATES HIS PCP STATED HIS " SUGAR LEVELS WERE INCREASING, SO HE WAS PUT ON METFORMIN" ANY NEW PROBLEMS WITH YOUR MEDICATIONS? :NO HAVE YOU RECEIVED A VACCINE IN THE PAST 30 DAYS? :NO DO YOU PLAN TO RECEIVE A VACCINE IN THE NEXT 21 DAYS? :NO ANY HISTORY OF SEIZURES? :NO ANY HISTORY OF CARDIAC ISSUES OR EVENTS? :NO DO YOU HAVE SLEEP APNEA? :NO ANY RECENT HEAD INJURY? :NO DO YOU HAVE ANY NEW INFECTIONS? :NO WHEN DID YOU LAST EAT? : 12/07/2019 1800 WHEN DID YOU LAST DRINK? : 12/07/2019 1800 WHAT DID YOU LAST DRINK? : WATER NAME OF PERSON DRIVING YOU HOME? : - WINDY DO YOU HAVE ANY OTHER QUESTIONS OR CONCERNS? : - CURRENT MEDICATIONS TAKING ACETAMINOPHEN 500 MG CAPSULE 2 CAPSULES NEEDED ORALLY EVERY 6 HRS, NOTES: 4-5 DAYS AGO TAKING BUPROPION HCL ER (SR) 150 MG TABLET EXTENDED RELEASE 12 HOUR 1 TABLET IN THE MORNING ORALLY BID, NOTES: 12/08/2019 0500 TAKING IBUPROFEN 200 MG TABLET 1 TABLET NEEDED ORALLY EVERY 6 HRS, NOTES: 4-5 DAYS AGO TAKING OXYCODONE HCL 20 MG TABLET 1 ORALLY 1 TAB Q 4-6HR MDD4, NOTES: 1/2 TAB AT (10 MG) AT 0600 12/08/2019 TAKING METFORMIN HCL 500 MG TABLET 1/2 TAB BID ORALLY BID, NOTES: 12/07/2019 1800 NOT-TAKING LINEZOLID 600 MG TABLET 1 TABLET ORALLY EVERY 12 HRS NOT-TAKING SILVER SULFADIAZINE 1 % CREAM 1 APPLICATION TO AFFECTED AREA EXTERNALLY ONCE A DAY NOT-TAKING IBUPROFEN PM 200-38 MG TABLET 2 TABLETS AT BEDTIME NEEDED ORALLY ONCE A DAY NOT-TAKING AMLODIPINE BESYLATE 10 MG TABLET 1 TABLET ORALLY ONCE A DAY NOT-TAKING MINOCYCLINE HCL 100 MG CAPSULE 1 CAPSULE ORALLY EVERY 12 HRS NOT-TAKING DICLOFENAC SODIUM 75 MG TABLET DELAYED RELEASE 1 TABLET WITH FOOD OR MILK ORALLY TWICE A DAY NOT-TAKING NAPROXEN 250 MG TABLET 2 CAP ORALLY THREE DAILY NEEDED MEDICATION LIST REVIEWED AND RECONCILED WITH THE PATIENT PAST MEDICAL HISTORY MRSA OSTEOMYELITIS OF LEFT FIFTH METATARSAL 08/20/2013 HYPERTENSION DEPRESSION SESONAL ALLERGIES KIDNEYS MISSHAPED INSOMNIA PRE-DIABETES ASCVD 10 YR RISK: 4.3% (DECEMBER 2013) OSTEOMYELITIS LEFT FOOT ALLERGIES AMOXICILLIN: ANAPHYLAXIS - ALLERGY IODINE: ANAPHYLAXIS - ALLERGY SURGICAL HISTORY LUMBAR SPINE REPLACEMENT DR MARVEL MOROCHO 03/20/13 LUMBAR SPINE FUSION 04/03/13 PARTIAL LEFT FOOT AMPUTATION 07/16/18 FAMILY HISTORY FATHER: ALIVE, ALIVE, DIAGNOSED WITH HYPERTENSION MOTHER: ALIVE, ALIVE 4 BROTHER(S) , 1 SISTER(S) - HEALTHY. 2 SON(S) - HEALTHY. SOCIAL HISTORY GENERAL: TOBACCO USE ARE YOU A:NONSMOKER LATEX QUESTIONNAIRE LATEX ALLERGY : HAVE YOU EVER DEVELOPED ANY TYPE OF REACTION AFTER HANDLING LATEX PRODUCTS SUCH RUBBER GLOVES, CONDOMS, DIAPHRAGMS, BALLOONS, SOCKS, OR UNDERWEAR?NO LATEX ALLERGY : HAVE YOU EVER DEVELOPED ANY TYPE OF REACTION DURING OR AFTER DENTAL APPOINTMENT, VAGINAL/RECTAL EXAMINATION, SURGICAL PROCEDURE, OR ANY OTHER EXPOSURE?NO LATEX RISK : HAVE YOU EVER HAD ANY DIFFICULTY BREATHING OR HIVES AFTER EATING OR HANDLING ANY FRUITS, OR VEGETABLES; SUCH KIWI, BANANAS, STONE FRUITS, OR CHESTNUTSNO LATEX RISK : DO YOU HAVE A PREVIOUS PERSONAL HISTORY OF MORE THAN NINE SURGERIES, SPINA BIFIDA, OR REPEATED CATHERIZATIONS? NO LATEX RISK : ARE YOU FREQUENTLY EXPOSED TO LATEX PRODUCTS IN YOUR OCCUPATION?NO DATE ASKED : 12/08/2019 ALCOHOL SCREENING DID YOU HAVE A DRINK CONTAINING ALCOHOL IN THE PAST YEAR?NO POINTS0 INTERPRETATIONNEGATIVE RECREATIONAL DRUG USE DRUG USE?NO CAFFEINE CAFFEINE USE?YES HOW OFTEN AND HOW MUCH? COFFEE DAILY [employer] [id number] MORAVIAN LANGUAGE LANGUAGES SPOKEN:[place] LEARNING BARRIERS / SPECIAL NEEDS HEARING IMPAIRED?NO VISION IMPAIRED?YES COGNITIVELY IMPAIRED?NO :CORRECTIVE LENSES READINESS TO LEARN?YES LEARNING PREFERENCES?NO LEARNING CAPABILITIES PRESENT?YES EMOTIONAL BARRIERS?NO DIET: CARBOHYDRATE CONTROLLED, LOW SALT, LOW SUGAR. MARITAL STATUS: . OTHERS AT HOME: SPOUSE. PAIN CLINIC PFS, CLERGY, PUBLIC HEALTH REFERRALS PFS REFERRAL NEEDED?NO CLERGY REFERRAL NEEDED?NO PUBLIC HEALTH REFERRAL NEEDED?NO WAS THE PROVIDER NOTIFIED OF ANY PERTINENT INFO?NO HAS THE PATIENT BEEN EDUCATED REGARDING HIS/HER PLAN OF CARE?YES HAS THE PATIENT BEEN EDUCATED REGARDING PAIN, THE RISK FOR PAIN, THE IMPORTANCE OF EFFECTIVE PAIN MANAGEMENT, AND THE PAIN ASSESSMENT PROCESS?YES ADVANCE DIRECTIVE ADVANCE DIRECTIVE DISCUSSED WITH PATIENT:YES STATES HCP IS HIS - ALYSSIA MÉNDEZ; NO DOCUMENT PROVIDED REVIEWED WITH PATIENT 04/19/18 1300 JSREVIEWED WITH PATIENT 09/02/18 0857 JSREVIEWED WITH PT 12/03/18 0841 BVREVIEWED WITH PATIENT 03/21/19 0911 LAS. HOSPITALIZATION/MAJOR DIAGNOSTIC PROCEDURE RELATED TO SURGIERIES FOOT INFECTION - OSTEOMYELITIS 04/2018 VITAL SIGNS WT 295.2 LBS, HT 76 IN, BMI 35.93 INDEX, BP 152/81 MM HG, HR 90 /MIN, RR 18 /MIN, TEMP 97.2 F, OXYGEN SAT % 99%, SAFE IN ENV? (Y/N) YES, NA INITIALS AW 0852, REVIEWED BY: DAIANA. EXAMINATION GENERAL EXAMINATION: THE PATIENT IS ALERT, ORIENTED TIMES THREE AND COOPERATIVE. HEART SHOWS REGULAR RHYTHM, NO MURMURS AND NO GALLOPS. LUNGS ARE CLEAR TO AUSCULTATION. ASSESSMENTS SPONDYLOSIS WITHOUT MYELOPATHY OR RADICULOPATHY, LUMBAR REGION - M47.816 (PRIMARY) LUMBAR POST-LAMINECTOMY SYNDROME - M96.1 SPONDYLOSIS WITHOUT MYELOPATHY OR RADICULOPATHY, LUMBOSACRAL REGION - M47.817 TREATMENT LUMBAR POST-LAMINECTOMY SYNDROME SMC FACET BLOCK (PAIN)[id number] PROCEDURES PN LUMBAR FACET BLOCK THERAPEUTIC PRE PROCEDURE DIAGNOSIS LUMBAR SPONDYLOSIS, LUMBOSACRAL SPONDYLOSIS POST PROCEDURE DIAGNOSIS LUMBAR SPONDYLOSIS, LUMBOSACRAL SPONDYLOSIS PROCEDURE BILATERAL L4-L5 AND BILATERAL L5-S1 LUMBAR FACET THERAPEUTIC BLOCK SURGEON DR. MILKA CHAVEZ MOSAIC WORKER NONE ANESTHESIA LOCAL PRE PROCEDURE NOTE THE PATIENT HAS A HISTORY OF CHRONIC LOW BACK PAIN. I EVALUATED THE PATIENT AND REVIEWED THE CHART. I WENT OVER THE RISKS, ALTERNATIVES, AND BENEFITS ASSOCIATED WITH THIS PROCEDURE. I DISCUSSED THAT THE USE OF STEROIDS MAY CONTRIBUTE TO IMMUNOSUPPRESSION OF THE PATIENT'S BODY AGAINST INFECTIONS SUCH THE STOCK VIRUS, COVID-19. THE PATIENT IS AWARE OF THE POTENTIAL COMPLICATIONS ASSOCIATED WITH AN INFECTION OF THIS VIRUS INCLUDING . THE PATIENT WOULD LIKE TO PROCEED AND GIVES CONSENT TO PERFORM THE PROCEDURE. THE PATIENT DENIES UNEXPLAINABLE WEIGHT LOSS, FEVER, CHILLS, OR NEW CHANGES IN URINARY OR BOWEL CONTROL. THE PATIENT IS COVID-19 NEGATIVE DESCRIPTION OF PROCEDURE THE PATIENT WAS BROUGHT TO THE PROCEDURE ROOM AND PLACED IN THE PRONE POSITION. THE LUMBOSACRAL AREA WAS CLEANED WITH CHLORAPREP SOLUTION AND DRAPED ASEPTICALLY. THE PROCEDURE WAS DONE UNDER STERILE CONDITIONS. I CHECKED LATERALITY AND THE LEVEL WHERE THE PROCEDURE WAS GOING TO BE PERFORMED WITH THE PATIENT AND THE SUPPORTING STAFF AT THE MOMENT OF THE TIME OUT IN THE PROCEDURE ROOM. UNDER FLUOROSCOPIC GUIDANCE, THE TARGET POINT WAS SELECTED AT THE RIGHT AND LEFT FACET JOINTS. TARGET POINT WAS SELECTED AFTER LATERAL ROTATION AND TILT OF THE MAGNIFIER OF THE C-ARM. LIDOCAINE 0.5% WAS USED TO NUMB THE SKIN AND THE SUBCUTANEOUS TISSUE BELOW IT. SPINAL NEEDLES, 22-GAUGE, WERE ADVANCED UNDER FLUOROSCOPIC GUIDANCE AND FOLLOWING PATIENT FEEDBACK UNTIL THE TARGETS WERE TOUCHED. THE POSITION OF THE NEEDLES WAS VERIFIED WITH AP AND LATERAL VIEWS. DUE TO THE PATIENT HAVING AN ALLERGY TO DYE, WE DID NOT USE ISOVUE-M DYE. THEN A SOLUTION OF 1.0 ML OF BUPIVACAINE 0.125% OF DEXAMETHASONE 5 MG WAS INJECTED AT EACH SITE. THERE WAS NO EVIDENCE OF BLOOD, PARESTHESIA OR CEREBROSPINAL FLUID DURING THE PROCEDURE. THE PATIENT WAS SENT TO THE RECOVERY ROOM. THE PATIENT WAS MOVING THE EXTREMITIES AND DOING WELL. THERE WAS NO COMPLICATION DURING THE PROCEDURE. FLUOROSCOPY TIME WAS 40 SECONDS POST PROCEDURE NOTE AFTER CHECKING THE PATIENT UNDER X-RAY, I WOULD ADVISE TO WORK WITH THE PATIENT'S FACET JOINTS AT L3-L4 BILATERALLY JUST BELOW THE FUSION. THE PATIENT WILL BE SEEN IN A FOLLOW UP IN THE NEXT FEW WEEKS. I AM LOOKING FOR LONG LASTING RELIEF FOR THE PATIENT WITH THIS INTERVENTION. INSTRUCTIONS WERE GIVEN, QUESTIONS WERE ANSWERED, AND THE PATIENT EXPRESSED UNDERSTANDING AND AGREES WITH THE PLAN. THE PATIENT IS AWARE TO STAY HOME FOR THE NEXT WEEK, IF POSSIBLE, DUE TO COVID-19. I, ALVINO FARNSWORTH, DOCUMENTED THE ABOVE INFORMATION ACTING A SCRIBE FOR DR. CHAVEZ. I HAVE REVIEWED THE ABOVE DOCUMENT, WRITTEN BY ALVINO FARNSWORTH, SCHEDULE ANALYST, AND I VERIFY THAT IT IS ACCURATE PROCEDURE CODES 04082 INJ PARAVERT F JNT L/S 1 LEV, MODIFIERS: 50 [id number] INJ PARAVERT F JNT L/S 2 LEV, MODIFIERS: 50 DISPOSITION & COMMUNICATION FOLLOW UP F/UP WITH [employer]ICE BROKER (REASON: POST LFBT REMY L4-L5, L5-S1) ELECTRONICALLY SIGNED BY MILKA CHAVEZ MD, ON 12/09/2019 AT 09:58 AM EDT DISCLAIMER : THIS IS A VISIT SUMMARY EXTRACTED FROM THE [employer] CHART. IT IS NOT A COPY OF THE [employer] PROGRESS NOTE. MTDD
== END ==
LOC: M PAIN 09:00
PROVIDERS: ATTEND Anesthesiology
DX: M47.816 Spondylosis without myelopathy or radiculopathy, lumbar region (principal); M96.1 Postlaminectomy syndrome, not elsewhere classified; M47.817 Spondylosis without myelopathy or radiculopathy, lumbosacral region; Z86.14 Personal history of Methicillin resistant Staphylococcus aureus infection; I10 Essential (primary) hypertension; Z86.59 Personal history of other mental and behavioral disorders; G47.00 Insomnia, unspecified; R73.03 Prediabetes; Z88.1 Allergy status to other antibiotic agents; Z88.3 Allergy status to other anti-infective agents; Z79.84 Long term (current) use of oral hypoglycemic drugs; Z79.891 Long term (current) use of opiate analgesic; Z79.899 Other long term (current) drug therapy
CPT/HCPCS: 64493; 64494; J1100; Q9967

== ENCOUNTER → 2020-01-02 | Outpatient (CLI) | payer BC ==
[~2020-01-02] MED LIST changes: -BUPIVACAINE HCL 0.25% 30ML VIAL As Ordered ONE; -ISOVUE-M 300 61% 15ML VIAL As Ordered ONE; -LIDOCAINE 1% SDV 30ML VIAL As Ordered ONE; -dexameTHASONE 10MG/1ML VIAL PRES.FREE (J1100 PER 1MG) As Ordered ONE; -diazePAM 5 MG TAB As Ordered ONE; -oxyCODONE 5MG TAB As Ordered ONE
--- NOTE | 2020-01-07 03:03 | ECWPNPC ---
PATIENT NAME: MARIA C MÉNDEZ : 1970 GENDER: MALE VISIT DATE: 01/02/2020 DISCHARGE DATE: 01/02/20 1015 VISIT LOCKED DATE TIME: PHYSICIAN: CHAD VOGT RESOURCE: CHAD VOGT REASON FOR APPOINTMENT 1. POST THERAPEUTIC LUMBAR FACET BLOCK L4/L5, L5/S1 HISTORY OF PRESENT ILLNESS GENERAL: HERE FOR POST PROCEDURE FOLLOW-UP. HAD BILATERAL LUMBAR THERAPEUTIC BLOCK ON 12/08/2019. REPORTING MARKED REDUCTION IN PAIN FOR A FEW WEEKS POST PROCEDURE. PAIN HAS GRADUALLY RETURNED TO BASELINE. DISCUSSED TREATMENT OPTIONS. I THINK HE WOULD BE A GOOD CANDIDATE FOR RADIOFREQUENCY. PAIN IS LOCATED ON THE RIGHT SIDE OF THE LOWER BACK AND RADIATES INTO THE RIGHT ANTERIOR LATERAL THIGH. HISTORY OF LUMBAR SURGERY. -. FALL RISK SCREENING: SCREENING :NO FALLS REPORTED IN THE LAST YEAR PAIN SCREENING: PATIENT HAS A COMPLAINT OF ACUTE OR CHRONIC PAIN :YES 01/02/20 INTENSITY OF PAIN (SCALE OF 1 TO 10):5 WHAT DOES YOUR PAIN FEEL LIKE:CONTINOUS, INTERMITTENT, STABBING PAIN IS INCREASED BY: LAYING ON RIGHT SIDE, BENDING PAIN IS DECREASED BY: MEDS, INJECTIONS NURSING NOTE: -. PAIN CENTER INTAKE QUESTIONS: DO YOU HAVE A HISTORY OF MRSA? :YES IN LEFT FOOT DO YOU TAKE A BLOOD THINNERS? :NO DO YOU HAVE ANY BLEEDING DISORDERS? :NO ANY NEW NUMBNESS OR WEAKNESS IN YOUR LEGS OR ARMS? :NO ANY PACEMAKER,DEFIBRILLATOR, OR DORSAL COLUMN STIMULATOR? :NO DO YOU HAVE ANY RASHES OR OPEN SORES? :NO ARE YOU ALLERGIC TO IV DYE? :YES ARE YOU DIABETIC? :YES ANY NEW PROBLEMS WITH YOUR MEDICATIONS? :NO HAVE YOU RECEIVED A VACCINE IN THE PAST 30 DAYS? :NO DO YOU PLAN TO RECEIVE A VACCINE IN THE NEXT 21 DAYS? :NO DO YOU NEED ANY PRESCRIPTION? :NO DO YOU TAKE ANY IMMUNOSUPPRESSIVE MEDICATIONS? :NO IS THERE A CHANCE YOU COULD BE ? :NO ARE YOU BREAST FEEDING? :NO CURRENT MEDICATIONS TAKING ACETAMINOPHEN 500 MG CAPSULE 2 CAPSULES NEEDED ORALLY EVERY 6 HRS TAKING BUPROPION HCL ER (SR) 150 MG TABLET EXTENDED RELEASE 12 HOUR 1 TABLET IN THE MORNING ORALLY BID TAKING IBUPROFEN 200 MG TABLET 1 TABLET NEEDED ORALLY EVERY 6 HRS TAKING METFORMIN HCL 500 MG TABLET 1/2 TAB BID ORALLY BID TAKING OXYCODONE HCL 20 MG TABLET 1 ORALLY 1 TAB Q 4-6HR MDD4 NOT-TAKING OXYCODONE HCL 20 MG TABLET 1 TAB ORALLY EVERY 6 HRS PRN MDD4 NOT-TAKING LINEZOLID 600 MG TABLET 1 TABLET ORALLY EVERY 12 HRS NOT-TAKING SILVER SULFADIAZINE 1 % CREAM 1 APPLICATION TO AFFECTED AREA EXTERNALLY ONCE A DAY NOT-TAKING IBUPROFEN PM 200-38 MG TABLET 2 TABLETS AT BEDTIME NEEDED ORALLY ONCE A DAY NOT-TAKING AMLODIPINE BESYLATE 10 MG TABLET 1 TABLET ORALLY ONCE A DAY NOT-TAKING MINOCYCLINE HCL 100 MG CAPSULE 1 CAPSULE ORALLY EVERY 12 HRS NOT-TAKING DICLOFENAC SODIUM 75 MG TABLET DELAYED RELEASE 1 TABLET WITH FOOD OR MILK ORALLY TWICE A DAY NOT-TAKING NAPROXEN 250 MG TABLET 2 CAP ORALLY THREE DAILY NEEDED MEDICATION LIST REVIEWED AND RECONCILED WITH THE PATIENT PAST MEDICAL HISTORY MRSA OSTEOMYELITIS OF LEFT FIFTH METATARSAL 08/20/2013 HYPERTENSION DEPRESSION SESONAL ALLERGIES KIDNEYS MISSHAPED INSOMNIA PRE-DIABETES ASCVD 10 YR RISK: 4.3% (DECEMBER 2013) OSTEOMYELITIS LEFT FOOT ALLERGIES AMOXICILLIN: ANAPHYLAXIS - ALLERGY IODINE: ANAPHYLAXIS - ALLERGY SURGICAL HISTORY LUMBAR SPINE REPLACEMENT DR MARVEL MOROCHO 03/20/13 LUMBAR SPINE FUSION 04/03/13 PARTIAL LEFT FOOT AMPUTATION 07/16/18 FAMILY HISTORY FATHER: ALIVE, ALIVE, DIAGNOSED WITH HYPERTENSION MOTHER: ALIVE, ALIVE 4 BROTHER(S) , 1 SISTER(S) - HEALTHY. 2 SON(S) - HEALTHY. SOCIAL HISTORY GENERAL: TOBACCO USE ARE YOU A:NONSMOKER LATEX QUESTIONNAIRE LATEX ALLERGY : HAVE YOU EVER DEVELOPED ANY TYPE OF REACTION AFTER HANDLING LATEX PRODUCTS SUCH RUBBER GLOVES, CONDOMS, DIAPHRAGMS, BALLOONS, SOCKS, OR UNDERWEAR?NO LATEX ALLERGY : HAVE YOU EVER DEVELOPED ANY TYPE OF REACTION DURING OR AFTER DENTAL APPOINTMENT, VAGINAL/RECTAL EXAMINATION, SURGICAL PROCEDURE, OR ANY OTHER EXPOSURE?NO DATE ASKED : 12/08/2019 LATEX RISK : HAVE YOU EVER HAD ANY DIFFICULTY BREATHING OR HIVES AFTER EATING OR HANDLING ANY FRUITS, OR VEGETABLES; SUCH KIWI, BANANAS, STONE FRUITS, OR CHESTNUTSNO LATEX RISK : DO YOU HAVE A PREVIOUS PERSONAL HISTORY OF MORE THAN NINE SURGERIES, SPINA BIFIDA, OR REPEATED CATHERIZATIONS? NO LATEX RISK : ARE YOU FREQUENTLY EXPOSED TO LATEX PRODUCTS IN YOUR OCCUPATION?NO ALCOHOL SCREENING DID YOU HAVE A DRINK CONTAINING ALCOHOL IN THE PAST YEAR?NO POINTS0 INTERPRETATIONNEGATIVE RECREATIONAL DRUG USE DRUG USE?NO CAFFEINE CAFFEINE USE?YES HOW OFTEN AND HOW MUCH? COFFEE DAILY [employer] [id number] CHURCH LANGUAGE LANGUAGES SPOKEN:ROMANIAN LEARNING BARRIERS / SPECIAL NEEDS HEARING IMPAIRED?NO VISION IMPAIRED?YES COGNITIVELY IMPAIRED?NO :CORRECTIVE LENSES READINESS TO LEARN?YES LEARNING PREFERENCES?NO LEARNING CAPABILITIES PRESENT?YES EMOTIONAL BARRIERS?NO DIET: CARBOHYDRATE CONTROLLED, LOW SALT, LOW SUGAR. MARITAL STATUS: . OTHERS AT HOME: SPOUSE. PAIN CLINIC PFS, CLERGY, PUBLIC HEALTH REFERRALS PFS REFERRAL NEEDED?NO CLERGY REFERRAL NEEDED?NO PUBLIC HEALTH REFERRAL NEEDED?NO WAS THE PROVIDER NOTIFIED OF ANY PERTINENT INFO?NO HAS THE PATIENT BEEN EDUCATED REGARDING HIS/HER PLAN OF CARE?YES HAS THE PATIENT BEEN EDUCATED REGARDING PAIN, THE RISK FOR PAIN, THE IMPORTANCE OF EFFECTIVE PAIN MANAGEMENT, AND THE PAIN ASSESSMENT PROCESS?YES ADVANCE DIRECTIVE ADVANCE DIRECTIVE DISCUSSED WITH PATIENT:YES STATES HCP IS HIS - ALYSSIA MÉNDEZ; NO DOCUMENT PROVIDED REVIEWED WITH PATIENT 04/19/18 1300 JSREVIEWED WITH PATIENT 09/02/18 0857 JSREVIEWED WITH PT 12/03/18 0841 BVREVIEWED WITH PATIENT 03/21/19 0911 LAS. HOSPITALIZATION/MAJOR DIAGNOSTIC PROCEDURE RELATED TO SURGIERIES FOOT INFECTION - OSTEOMYELITIS 04/2018 REVIEW OF SYSTEMS CONSTITUTIONAL: ANY RECENT FEVER NO . CHILLS NO . WEIGHT CHANGE OF UNKNOWN REASONS NO . GASTROENTEROLOGY: NEW UNEXPLAINABLE CHANGES IN BOWEL CONTROL NO . CONSTIPATION NO . GENITOURINARY: ANY NEW CHANGE IN BLADDER CONTROL? NO . NEUROLOGY: NEW ONSET DIZZINESS OR NEUROLOGICAL CHANGES NOT MENTIONED NO . NEW NUMBNESS OR PAIN PATTERNS NOT MENTIONED AND PERTINENT TO TODAY'S VISIT NO . CARDIOLOGY: NEW CHEST PRESSURE NO . NEW CHEST PAIN NO . RESPIRATORY: UNEXPLAINABLE COUGH NO . NEW SHORTNESS OF BREATH NO . VITAL SIGNS WT 293.8 LBS, HT 76 IN, BMI 35.76 INDEX, BP 140/74 MM HG, HR 83 /MIN, RR 18 /MIN, TEMP 96.6 F, OXYGEN SAT % 98%, NA INITIALS SC 09:25. EXAMINATION GENERAL EXAMINATION: GENERAL AWAKE,ALERT ,PLEASANT . PSYCH AFFECT NORMAL . LUNGS: LUNG PRYOR ARE CLEAR TO AUSCULTATION BILATERALLY. GOOD MOVEMENT OF AIR . HEART: S1, S2 IN A REGULAR RATE AND RHYTHM. NO SIGNIFICANT MURMURS, RUBS OR GALLOPS NOTED . LUMBAR:PALPATION: + FOR PAIN OVER L/S SPINE. + FOR PAIN OVER L/S PARASPINALS SPECIFIC POINT TENDERNESS OVER RIGHT L4-5, L5-S1 LUMBAR FACETS WITH FACET LOADING. NEUROLOGIC EXAM: NORMAL SENSATION LIGHT TOUCH BILAT. LOWER EXTREMITIES . DIAGNOSTIC TESTS REVIEWED MRI L/S SPINE-04/22/19. ASSESSMENTS SPONDYLOSIS WITHOUT MYELOPATHY OR RADICULOPATHY, LUMBAR REGION - M47.816 (PRIMARY) TREATMENT SPONDYLOSIS WITHOUT MYELOPATHY OR RADICULOPATHY, LUMBAR REGION NOTES: RIGHT L4-5, L5-S1 DIAGNOSTIC LUMBAR FACET BLOCK #1. PROCEDURE CODES FA211 ESTABILISHED PATIENT [facility] CHARGE DISPOSITION & COMMUNICATION FOLLOW UP POST (REASON: RIGHT L4-5, L5-S1 DIAGNOSTIC LUMBAR FACET BLOCK #1) ELECTRONICALLY SIGNED BY BEBO RUTHERFORD ON 01/06/2020 AT 02:49 PM EDT DISCLAIMER : THIS IS A VISIT SUMMARY EXTRACTED FROM THE [employer] CHART. IT IS NOT A COPY OF THE [employer] PROGRESS NOTE. TERESO
== END ==
LOC: M PAIN 09:15
PROVIDERS: ATTEND Nurse Practitioner Family
DX: M47.816 Spondylosis without myelopathy or radiculopathy, lumbar region (principal); Z79.84 Long term (current) use of oral hypoglycemic drugs; Z79.891 Long term (current) use of opiate analgesic; Z79.899 Other long term (current) drug therapy; Z88.0 Allergy status to penicillin; Z88.4 Allergy status to anesthetic agent

== ENCOUNTER → 2020-03-08 | Outpatient (CLI) | payer BC | LOC: M PAIN 08:39 | PROVIDERS: ATTEND Nurse Practitioner Family | DX: M47.817 Spondylosis without myelopathy or radiculopathy, lumbosacral region (principal); Z79.891 Long term (current) use of opiate analgesic ==

== ENCOUNTER → 2020-04-16 | Outpatient (CLI) | payer BC | LOC: M LABSMTC 14:09 | PROVIDERS: ATTEND Anesthesiology | DX: Z20.828 Contact with and (suspected) exposure to other viral communicable diseases (principal) | CPT/HCPCS: C9803; U0003 ==

== ENCOUNTER → 2020-04-19 | Outpatient (CLI) | payer BC ==
[~2020-04-19] MED LIST changes: +BUPIVACAINE HCL 0.25% 30ML VIAL As Ordered ONE; +ISOVUE-M 300 61% 15ML VIAL As Ordered ONE; +LIDOCAINE 1% SDV 30ML VIAL As Ordered ONE
--- NOTE | 2020-04-19 13:51 | ECWPNPC ---
PATIENT NAME: MARIA C MÉNDEZ : 1970 GENDER: MALE VISIT DATE: 04/19/2020 DISCHARGE DATE: 04/19/20 0000 VISIT LOCKED DATE TIME: PHYSICIAN: MILKA CHAVEZ MD RESOURCE: MILKA CHAVEZ MD REASON FOR APPOINTMENT 1. RIGHT DIAGNOSTIC LUMBAR FACET BLK L4-L5,L5-S1 HISTORY OF PRESENT ILLNESS PAIN CENTER INTAKE QUESTIONS: DO YOU HAVE A HISTORY OF MRSA? :YES IN LEFT FOOT DIGIT AND METATARSAL #5 AMPUTATED DO YOU TAKE A BLOOD THINNERS? :NO DO YOU HAVE ANY BLEEDING DISORDERS? :NO ANY NEW NUMBNESS OR WEAKNESS IN YOUR LEGS OR ARMS? :NO ANY PACEMAKER,DEFIBRILLATOR, OR DORSAL COLUMN STIMULATOR? :NO DO YOU HAVE ANY RASHES OR OPEN SORES? :NO ARE YOU ALLERGIC TO IV DYE? :NO ARE YOU DIABETIC? :YES METFORMIN ANY NEW PROBLEMS WITH YOUR MEDICATIONS? :NO HAVE YOU RECEIVED A VACCINE IN THE PAST 30 DAYS? :NO DO YOU PLAN TO RECEIVE A VACCINE IN THE NEXT 21 DAYS? :NO DO YOU TAKE ANY IMMUNOSUPPRESSIVE MEDICATIONS? :NO ANY HISTORY OF SEIZURES? :NO ANY HISTORY OF CARDIAC ISSUES OR EVENTS? :NO DO YOU HAVE SLEEP APNEA? :NO ANY RECENT HEAD INJURY? :NO DO YOU HAVE ANY NEW INFECTIONS? :NO IS THERE A CHANCE YOU COULD BE ? :NO ARE YOU BREAST FEEDING? :NO WHEN DID YOU LAST EAT? : 04/18 2100 WHEN DID YOU LAST DRINK? : 04/18 2100 WHAT DID YOU LAST DRINK? : WATER NAME OF PERSON DRIVING YOU HOME? : --ALYSSIA DO YOU HAVE ANY OTHER QUESTIONS OR CONCERNS? : NONE GENERAL: -. FALL RISK SCREENING: SCREENING :NO FALLS REPORTED IN THE LAST YEAR PAIN SCREENING: PATIENT HAS A COMPLAINT OF ACUTE OR CHRONIC PAIN :YES RIGHT HIP AND LEG LOCATION OF PAIN:RIGHT HIP, LEG(S), LOW BACK, OTHER: INTENSITY OF PAIN (SCALE OF 1 TO 10): 8 WHAT DOES YOUR PAIN FEEL LIKE:ACHING, BURNING, CONTINOUS, SHARP, STABBING, THROBBING, SORE, SHOOTING DURATION:CONTINOUS, CONSTANT PAIN IS INCREASED BY: PROLONGED SITTING PAIN IS DECREASED BY: MEDS, MOVING NURSING NOTE: -. CURRENT MEDICATIONS TAKING ACETAMINOPHEN 500 MG CAPSULE 2 CAPSULES NEEDED ORALLY EVERY 6 HRS, NOTES: NONE RECENT TAKING BUPROPION HCL ER (SR) 150 MG TABLET EXTENDED RELEASE 12 HOUR 1 TABLET IN THE MORNING ORALLY BID, NOTES: 04/18 1800 TAKING IBUPROFEN 200 MG TABLET 1 TABLET NEEDED ORALLY EVERY 6 HRS, NOTES: NONE RECENT TAKING METFORMIN HCL 500 MG TABLET 1 TABLET WITH A MEAL ORALLY BID, NOTES: 04/18 1600 TAKING OXYCODONE HCL 20 MG TABLET 1 ORALLY 1 TAB Q 4-6HR MDD4, NOTES: 04/18 2000 NOT-TAKING LINEZOLID 600 MG TABLET 1 TABLET ORALLY EVERY 12 HRS NOT-TAKING SILVER SULFADIAZINE 1 % CREAM 1 APPLICATION TO AFFECTED AREA EXTERNALLY ONCE A DAY NOT-TAKING IBUPROFEN PM 200-38 MG TABLET 2 TABLETS AT BEDTIME NEEDED ORALLY ONCE A DAY NOT-TAKING AMLODIPINE BESYLATE 10 MG TABLET 1 TABLET ORALLY ONCE A DAY NOT-TAKING MINOCYCLINE HCL 100 MG CAPSULE 1 CAPSULE ORALLY EVERY 12 HRS NOT-TAKING DICLOFENAC SODIUM 75 MG TABLET DELAYED RELEASE 1 TABLET WITH FOOD OR MILK ORALLY TWICE A DAY NOT-TAKING NAPROXEN 250 MG TABLET 2 CAP ORALLY THREE DAILY NEEDED DISCONTINUED OXYCODONE HCL 20 MG TABLET 1 TAB ORALLY EVERY 6 HRS PRN MDD4, NOTES: DUPILCATE MEDICATION LIST REVIEWED AND RECONCILED WITH THE PATIENT PAST MEDICAL HISTORY 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 2 SON(S) - HEALTHY. SOCIAL HISTORY GENERAL: TOBACCO USE ARE YOU A:NONSMOKER LATEX QUESTIONNAIRE LATEX ALLERGY : HAVE YOU EVER DEVELOPED ANY TYPE OF REACTION AFTER HANDLING LATEX PRODUCTS SUCH RUBBER GLOVES, CONDOMS, DIAPHRAGMS, BALLOONS, SOCKS, OR UNDERWEAR?NO LATEX ALLERGY : HAVE YOU EVER DEVELOPED ANY TYPE OF REACTION DURING OR AFTER DENTAL APPOINTMENT, VAGINAL/RECTAL EXAMINATION, SURGICAL PROCEDURE, OR ANY OTHER EXPOSURE?NO LATEX RISK : HAVE YOU EVER HAD ANY DIFFICULTY BREATHING OR HIVES AFTER EATING OR HANDLING ANY FRUITS, OR VEGETABLES; SUCH KIWI, BANANAS, STONE FRUITS, OR CHESTNUTSNO LATEX RISK : DO YOU HAVE A PREVIOUS PERSONAL HISTORY OF MORE THAN NINE SURGERIES, SPINA BIFIDA, OR REPEATED CATHERIZATIONS? NO LATEX RISK : ARE YOU FREQUENTLY EXPOSED TO LATEX PRODUCTS IN YOUR OCCUPATION?NO DATE ASKED : 04/19/2020 ALCOHOL SCREENING DID YOU HAVE A DRINK CONTAINING ALCOHOL IN THE PAST YEAR?NO POINTS0 INTERPRETATIONNEGATIVE RECREATIONAL DRUG USE DRUG USE?NO CAFFEINE CAFFEINE USE?YES HOW OFTEN AND HOW MUCH? COFFEE DAILY RELIGIOUS [id number] GNOSTICISM LANGUAGE LANGUAGES SPOKEN:URDU LEARNING BARRIERS / SPECIAL NEEDS BARRIERS TO LEARNING?NO HEARING IMPAIRED?NO VISION IMPAIRED?YES :CORRECTIVE LENSES COGNITIVELY IMPAIRED?NO READINESS TO LEARN?YES LEARNING PREFERENCES?NO LEARNING CAPABILITIES PRESENT?YES EMOTIONAL BARRIERS?NO SPECIAL DEVICES?NO CIRCULAR HEAD SAW OPERATOR NEEDED?NO DOMESTIC VIOLENCE DO YOU FEEL SAFE IN YOUR ENVIRONMENT?YES DIET: CARBOHYDRATE CONTROLLED, LOW SALT, LOW SUGAR. MARITAL STATUS: . OTHERS AT HOME: SPOUSE. PAIN CLINIC PFS, CLERGY, PUBLIC HEALTH REFERRALS PFS REFERRAL NEEDED?NO CLERGY REFERRAL NEEDED?NO PUBLIC HEALTH REFERRAL NEEDED?NO HAS THE PATIENT BEEN EDUCATED REGARDING HIS/HER PLAN OF CARE?YES HAS THE PATIENT BEEN EDUCATED REGARDING PAIN, THE RISK FOR PAIN, THE IMPORTANCE OF EFFECTIVE PAIN MANAGEMENT, AND THE PAIN ASSESSMENT PROCESS?YES ADVANCE DIRECTIVE ADVANCE DIRECTIVE DISCUSSED WITH PATIENT:YES STATES HCP IS HIS - ALYSSIA MÉNDEZ; NO DOCUMENT PROVIDED HOSPITALIZATION/MAJOR DIAGNOSTIC PROCEDURE RELATED TO SURGIERIES FOOT INFECTION - OSTEOMYELITIS 04/2018 VITAL SIGNS WT 283 LBS, HT 76 IN, BMI 34.44 INDEX, BP 137/83 MM HG, HR 84 /MIN, RR 16 /MIN, TEMP 98 F, OXYGEN SAT % 97, REVIEWED BY: AD. EXAMINATION GENERAL EXAMINATION: THE PATIENT IS ALERT, ORIENTED TIMES THREE AND COOPERATIVE. HEART SHOWS REGULAR RHYTHM, NO MURMURS AND NO GALLOPS. LUNGS ARE CLEAR TO AUSCULTATION. ASSESSMENTS SPONDYLOSIS WITHOUT MYELOPATHY OR RADICULOPATHY, LUMBAR REGION - M47.816 (PRIMARY) SPONDYLOSIS WITHOUT MYELOPATHY OR RADICULOPATHY, LUMBOSACRAL REGION - M47.817 TREATMENT SPONDYLOSIS WITHOUT MYELOPATHY OR RADICULOPATHY, LUMBAR REGION [facility] FACET BLOCK (PAIN)[id number] OTHERS CLINICAL NOTES: 04/15/20 ALAN ARIAS RN BSN. PROCEDURES PAIN NURSING RECORD PRE-PROCEDURE IV SITE N/A, PRE-PROCEDURE ORAL MEDICATIONS NONE PROCEDURE IN ROOM 0925, PHYSICIAN IN ROOM 0939, START 0944, FINISH 0949, PHYSICIAN OUT OF ROOM 0951, OUT OF ROOM 0957, STEROID N/A, O2 RA, ECG NORMAL SINUS, PATIENT SHIELDED YES, SAFETY STRAP YES, PREP CHLOROPREP BY Dylan AGUIRRE RN, IV INFUSED N/A, DRESSING TEGADERM BY DR. CHAVEZ LOC: FELIPA NAQVI 04/19/2020 9:11:02 AM > 1. ALERT, ORIENTED RESP: FELIPA NAQVI 04/19/2020 9:11:12 AM > 1. REGULAR, NO DYSPNEA COLOR: KENNY NAQVIITA 04/19/2020 9:11:17 AM > 1. PINK SKIN: DRISSFELIPA 04/19/2020 9:11:24 AM > 1. WARM, DRY POSITION: KENNY NAQVIITA 04/19/2020 9:25:11 AM > 1. PRONE VITALS: KENNY NAQVIITA 04/19/2020 9:25:34 AM > 151/87,82,16, 97% DRISSFELIPA 04/19/2020 9:38:34 AM > 145/89,83,18, 96% DRISSFELIPA 04/19/2020 9:48:04 AM > C/O FEELING DIZZY 147/93,86,16,98% DRISSFELIPA 04/19/2020 9:53:31 AM > 152/95,83,16, 96% DRISSFELIPA 04/19/2020 10:06:49 AM > 139/93, 82,16, 97% DISCHARGE: POST PAIN 1/10 LOW BACK, 4/10 RIGHT HIP AND LEG, IV N/A, GAIT STEADY, TEACHING COMPLETED, PATIENT ACKNOWLEDGES UNDERSTANDING YES POST PROCEDURE INSTRUCTIONS GIVEN TO AND REVIEWED WITH PT. AND HE VERBALIZED UNDERSTANDING. AD, PATIENT DISCHARGED AT 1009 : PATIENT AWARE THAT B/P IS ELEVATED, ASYMP. ADVISED TO MONITOR AT HOME AND IF IT CONTINUES TO BE ELEVATED HE SHOULD CONTACT HIS PCP. PT. VERBALIZED UNDERSTANDING. AD PN LUMBAR FACET BLOCK DIAGNOSTIC PRE PROCEDURE DIAGNOSIS LUMBAR SPONDYLOSIS, LUMBOSACRAL SPONDYLOSIS POST PROCEDURE DIAGNOSIS LUMBAR SPONDYLOSIS, LUMBOSACRAL SPONDYLOSIS PROCEDURE RIGHT L4-L5 AND RIGHT L5-S1 FACET BLOCK DIAGNOSTIC NUMBER [address] MILKA CHAVEZ REGULATORY ATTORNEY NONE ANESTHESIA LOCAL PRE PROCEDURE NOTE THE PATIENT WITH HISTORY OF CHRONIC LOW BACK PAIN. I EVALUATED THE PATIENT AND REVIEWED THE CHART. I WENT OVER THE RISKS, ALTERNATIVES, AND BENEFITS ASSOCIATED WITH THIS PROCEDURE. THE PATIENT WOULD LIKE TO PROCEED AND GAVE CONSENT TO PERFORM THE PROCEDURE. AGREED WITH THE PATIENT, WE ARE DOING THIS PROCEDURE TO DETERMINE IF THE PATIENT IS A CANDIDATE FOR A RADIOFREQUENCY ABLATION OF THE FACETS JOINTS. THE PATIENT DENIES UNEXPLAINABLE WEIGHT LOSS, FEVER, CHILLS, OR NEW CHANGES IN URINARY OR BOWEL CONTROL. THE PATIENT IS COVID-19 NEGATIVE DESCRIPTION OF PROCEDURE THE PATIENT WAS BROUGHT TO THE PROCEDURE ROOM AND PLACED IN THE PRONE POSITION. THE LUMBOSACRAL AREA WAS CLEANED WITH CHLORAPREP SOLUTION AND DRAPED ASEPTICALLY. THE PROCEDURE WAS DONE UNDER STERILE CONDITIONS. A TIMEOUT WAS PERFORMED WHERE LATERALITY AND THE SITE OF THE PROCEDURE WERE CHECKED AND CONFIRMED WITH EVERYONE IN THE ROOM. UNDER FLUOROSCOPIC GUIDANCE, TARGETS WERE SELECTED AT THE INTERSECTION OF THE RIGHT TRANSVERSE PROCESS OF L4, L5 AND ALA OF S1 WITH ITS RESPECTIVE SUPERIOR ARTICULAR PROCESS. I CONFIRMED AGAIN WITH EVERYONE IN THE ROOM THE LATERALITY OF THE TARGET AT 0944. LIDOCAINE WAS USED TO NUMB THE SKIN AND THE SUBCUTANEOUS TISSUE BELOW IT. SPINAL NEEDLE, 22-GAUGE, WAS ADVANCED UNDER FLUOROSCOPIC GUIDANCE AND FOLLOWING PATIENT FEEDBACK UNTIL THE TARGETS WERE REACHED. POSITION OF THE NEEDLES WAS VERIFIED WITH AP AND LATERAL VIEWS. AFTER PROPER POSITION OF THE NEEDLES WAS ACHIEVED, ISOVUE-M DYE 30%, 0.1 ML, WAS INJECTED AT EACH SITE SHOWING ADEQUATE SPREAD OF THE DYE. THEN, A SOLUTION OF 0.4 ML OF BUPIVACAINE 0.25% WAS INJECTED AT EACH SITE. THE MEDICATIONS WERE VERIFIED WITH THE NURSE. THERE WAS NO EVIDENCE OF BLOOD, PARESTHESIA OR CEREBROSPINAL FLUID DURING THE PROCEDURE. THE PATIENT WAS SENT TO THE RECOVERY ROOM. THE PATIENT WAS MOVING THE EXTREMITIES AND DOING WELL. THERE WERE NO COMPLICATIONS DURING THE PROCEDURE. ESTIMATED BLOOD LOSS WAS LESS THAN 5 ML. FLUOROSCOPY TIME WAS 26 SECONDS POST PROCEDURE NOTE IF WE DO A RADIOFREQUENCY AND THERE IS A PERSISTENT HIGHER PAIN, WE SHOULD WORK WITH L3-L4 ALSO. THE PATIENT WILL DOCUMENT THE PAIN LEVEL AND RESPONSE TO THIS PROCEDURE PER PAIN DIARY. THE PATIENT WILL BE SEEN IN A FOLLOW UP IN THE NEXT FEW WEEKS. FURTHER DETERMINATION FOR THE PATIENT'S CASE WILL BE DONE AT THE NEXT VISIT. INSTRUCTIONS WERE GIVEN, QUESTIONS WERE ANSWERED, AND THE PATIENT EXPRESSED UNDERSTANDING AND AGREED WITH THE PLAN. I, ALVINO FARNSWORTH, DOCUMENTED THE ABOVE INFORMATION ACTING A SCRIBE FOR DR. CHAVEZ. I HAVE REVIEWED THE ABOVE DOCUMENT, WRITTEN BY ALVINO FARNSWORTH, PRINTED CIRCUIT BOARD PANELS DEBURRER, AND I VERIFY THAT IT IS ACCURATE PROCEDURE CODES [id number] INJ PARAVERT F JNT L/S 1 LEV, MODIFIERS: [place] [id number] INJ PARAVERT F JNT L/S 2 LEV, MODIFIERS: RT DISPOSITION & COMMUNICATION FOLLOW UP FOLLOW UP WITH OXIDATION ENGINEER (REASON: POST DIAGNOSTIC RIGHT L4-L5, L5-S1) ELECTRONICALLY SIGNED BY MILKA CHAVEZ MD, MD ON 04/19/2020 AT 01:50 PM EDT DISCLAIMER : THIS IS A VISIT SUMMARY EXTRACTED FROM THE [employer] CHART. IT IS NOT A COPY OF THE [employer] PROGRESS NOTE. MTDD
--- NOTE | 2020-04-19 13:53 | ECWPNPC ---
PATIENT NAME: MARIA C MÉNDEZ : 1970 GENDER: MALE VISIT DATE: 04/19/2020 DISCHARGE DATE: 04/19/20 0000 VISIT LOCKED DATE TIME: PHYSICIAN: MILKA CHAVEZ MD RESOURCE: MILKA CHAVEZ MD REASON FOR APPOINTMENT 1. RIGHT DIAGNOSTIC LUMBAR FACET BLK L4-L5,L5-S1 HISTORY OF PRESENT ILLNESS PAIN CENTER INTAKE QUESTIONS: DO YOU HAVE A HISTORY OF MRSA? :YES IN LEFT FOOT DIGIT AND METATARSAL #5 AMPUTATED DO YOU TAKE A BLOOD THINNERS? :NO DO YOU HAVE ANY BLEEDING DISORDERS? :NO ANY NEW NUMBNESS OR WEAKNESS IN YOUR LEGS OR ARMS? :NO ANY PACEMAKER,DEFIBRILLATOR, OR DORSAL COLUMN STIMULATOR? :NO DO YOU HAVE ANY RASHES OR OPEN SORES? :NO ARE YOU ALLERGIC TO IV DYE? :NO ARE YOU DIABETIC? :YES METFORMIN ANY NEW PROBLEMS WITH YOUR MEDICATIONS? :NO HAVE YOU RECEIVED A VACCINE IN THE PAST 30 DAYS? :NO DO YOU PLAN TO RECEIVE A VACCINE IN THE NEXT 21 DAYS? :NO DO YOU TAKE ANY IMMUNOSUPPRESSIVE MEDICATIONS? :NO ANY HISTORY OF SEIZURES? :NO ANY HISTORY OF CARDIAC ISSUES OR EVENTS? :NO DO YOU HAVE SLEEP APNEA? :NO ANY RECENT HEAD INJURY? :NO DO YOU HAVE ANY NEW INFECTIONS? :NO IS THERE A CHANCE YOU COULD BE ? :NO ARE YOU BREAST FEEDING? :NO WHEN DID YOU LAST EAT? : 04/18 2100 WHEN DID YOU LAST DRINK? : 04/18 2100 WHAT DID YOU LAST DRINK? : WATER NAME OF PERSON DRIVING YOU HOME? : --ALYSSIA DO YOU HAVE ANY OTHER QUESTIONS OR CONCERNS? : NONE GENERAL: -. FALL RISK SCREENING: SCREENING :NO FALLS REPORTED IN THE LAST YEAR PAIN SCREENING: PATIENT HAS A COMPLAINT OF ACUTE OR CHRONIC PAIN :YES RIGHT HIP AND LEG LOCATION OF PAIN:RIGHT HIP, LEG(S), LOW BACK, OTHER: INTENSITY OF PAIN (SCALE OF 1 TO 10): 8 WHAT DOES YOUR PAIN FEEL LIKE:ACHING, BURNING, CONTINOUS, SHARP, STABBING, THROBBING, SORE, SHOOTING DURATION:CONTINOUS, CONSTANT PAIN IS INCREASED BY: PROLONGED SITTING PAIN IS DECREASED BY: MEDS, MOVING NURSING NOTE: -. CURRENT MEDICATIONS TAKING ACETAMINOPHEN 500 MG CAPSULE 2 CAPSULES NEEDED ORALLY EVERY 6 HRS, NOTES: NONE RECENT TAKING BUPROPION HCL ER (SR) 150 MG TABLET EXTENDED RELEASE 12 HOUR 1 TABLET IN THE MORNING ORALLY BID, NOTES: 04/18 1800 TAKING IBUPROFEN 200 MG TABLET 1 TABLET NEEDED ORALLY EVERY 6 HRS, NOTES: NONE RECENT TAKING METFORMIN HCL 500 MG TABLET 1 TABLET WITH A MEAL ORALLY BID, NOTES: 04/18 1600 TAKING OXYCODONE HCL 20 MG TABLET 1 ORALLY 1 TAB Q 4-6HR MDD4, NOTES: 04/18 2000 NOT-TAKING LINEZOLID 600 MG TABLET 1 TABLET ORALLY EVERY 12 HRS NOT-TAKING SILVER SULFADIAZINE 1 % CREAM 1 APPLICATION TO AFFECTED AREA EXTERNALLY ONCE A DAY NOT-TAKING IBUPROFEN PM 200-38 MG TABLET 2 TABLETS AT BEDTIME NEEDED ORALLY ONCE A DAY NOT-TAKING AMLODIPINE BESYLATE 10 MG TABLET 1 TABLET ORALLY ONCE A DAY NOT-TAKING MINOCYCLINE HCL 100 MG CAPSULE 1 CAPSULE ORALLY EVERY 12 HRS NOT-TAKING DICLOFENAC SODIUM 75 MG TABLET DELAYED RELEASE 1 TABLET WITH FOOD OR MILK ORALLY TWICE A DAY NOT-TAKING NAPROXEN 250 MG TABLET 2 CAP ORALLY THREE DAILY NEEDED DISCONTINUED OXYCODONE HCL 20 MG TABLET 1 TAB ORALLY EVERY 6 HRS PRN MDD4, NOTES: DUPILCATE MEDICATION LIST REVIEWED AND RECONCILED WITH THE PATIENT PAST MEDICAL HISTORY 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 2 SON(S) - HEALTHY. SOCIAL HISTORY GENERAL: TOBACCO USE ARE YOU A:NONSMOKER LATEX QUESTIONNAIRE LATEX ALLERGY : HAVE YOU EVER DEVELOPED ANY TYPE OF REACTION AFTER HANDLING LATEX PRODUCTS SUCH RUBBER GLOVES, CONDOMS, DIAPHRAGMS, BALLOONS, SOCKS, OR UNDERWEAR?NO LATEX ALLERGY : HAVE YOU EVER DEVELOPED ANY TYPE OF REACTION DURING OR AFTER DENTAL APPOINTMENT, VAGINAL/RECTAL EXAMINATION, SURGICAL PROCEDURE, OR ANY OTHER EXPOSURE?NO LATEX RISK : HAVE YOU EVER HAD ANY DIFFICULTY BREATHING OR HIVES AFTER EATING OR HANDLING ANY FRUITS, OR VEGETABLES; SUCH KIWI, BANANAS, STONE FRUITS, OR CHESTNUTSNO LATEX RISK : DO YOU HAVE A PREVIOUS PERSONAL HISTORY OF MORE THAN NINE SURGERIES, SPINA BIFIDA, OR REPEATED CATHERIZATIONS? NO LATEX RISK : ARE YOU FREQUENTLY EXPOSED TO LATEX PRODUCTS IN YOUR OCCUPATION?NO DATE ASKED : 04/19/2020 ALCOHOL SCREENING DID YOU HAVE A DRINK CONTAINING ALCOHOL IN THE PAST YEAR?NO POINTS0 INTERPRETATIONNEGATIVE RECREATIONAL DRUG USE DRUG USE?NO CAFFEINE CAFFEINE USE?YES HOW OFTEN AND HOW MUCH? COFFEE DAILY CHRISTIAN [id number] FAITH LANGUAGE LANGUAGES SPOKEN:LATVIAN LEARNING BARRIERS / SPECIAL NEEDS BARRIERS TO LEARNING?NO HEARING IMPAIRED?NO VISION IMPAIRED?YES :CORRECTIVE LENSES COGNITIVELY IMPAIRED?NO READINESS TO LEARN?YES LEARNING PREFERENCES?NO LEARNING CAPABILITIES PRESENT?YES EMOTIONAL BARRIERS?NO SPECIAL DEVICES?NO SPICE MILLER HAMMER MILL NEEDED?NO DOMESTIC VIOLENCE DO YOU FEEL SAFE IN YOUR ENVIRONMENT?YES DIET: CARBOHYDRATE CONTROLLED, LOW SALT, LOW SUGAR. MARITAL STATUS: . OTHERS AT HOME: SPOUSE. PAIN CLINIC PFS, CLERGY, PUBLIC HEALTH REFERRALS PFS REFERRAL NEEDED?NO CLERGY REFERRAL NEEDED?NO PUBLIC HEALTH REFERRAL NEEDED?NO HAS THE PATIENT BEEN EDUCATED REGARDING HIS/HER PLAN OF CARE?YES HAS THE PATIENT BEEN EDUCATED REGARDING PAIN, THE RISK FOR PAIN, THE IMPORTANCE OF EFFECTIVE PAIN MANAGEMENT, AND THE PAIN ASSESSMENT PROCESS?YES ADVANCE DIRECTIVE ADVANCE DIRECTIVE DISCUSSED WITH PATIENT:YES STATES HCP IS HIS - ALYSSIA MÉNDEZ; NO DOCUMENT PROVIDED HOSPITALIZATION/MAJOR DIAGNOSTIC PROCEDURE RELATED TO SURGIERIES FOOT INFECTION - OSTEOMYELITIS 04/2018 VITAL SIGNS WT 283 LBS, HT 76 IN, BMI 34.44 INDEX, BP 137/83 MM HG, HR 84 /MIN, RR 16 /MIN, TEMP 98 F, OXYGEN SAT % 97, REVIEWED BY: AD. EXAMINATION GENERAL EXAMINATION: THE PATIENT IS ALERT, ORIENTED TIMES THREE AND COOPERATIVE. HEART SHOWS REGULAR RHYTHM, NO MURMURS AND NO GALLOPS. LUNGS ARE CLEAR TO AUSCULTATION. ASSESSMENTS SPONDYLOSIS WITHOUT MYELOPATHY OR RADICULOPATHY, LUMBAR REGION - M47.816 (PRIMARY) SPONDYLOSIS WITHOUT MYELOPATHY OR RADICULOPATHY, LUMBOSACRAL REGION - M47.817 TREATMENT SPONDYLOSIS WITHOUT MYELOPATHY OR RADICULOPATHY, LUMBAR REGION [facility] FACET BLOCK (PAIN)[id number] OTHERS CLINICAL NOTES: 04/15/20 ALAN ARIAS RN BSN. PROCEDURES PAIN NURSING RECORD PRE-PROCEDURE IV SITE N/A, PRE-PROCEDURE ORAL MEDICATIONS NONE PROCEDURE IN ROOM 0925, PHYSICIAN IN ROOM 0939, START 0944, FINISH 0949, PHYSICIAN OUT OF ROOM 0951, OUT OF ROOM 0957, STEROID N/A, O2 RA, ECG NORMAL SINUS, PATIENT SHIELDED YES, SAFETY STRAP YES, PREP CHLOROPREP BY Dylan AGUIRRE RN, IV INFUSED N/A, DRESSING TEGADERM BY DR. CHAVEZ LOC: FELIPA NAQVI 04/19/2020 9:11:02 AM > 1. ALERT, ORIENTED RESP: FELIPA NAQVI 04/19/2020 9:11:12 AM > 1. REGULAR, NO DYSPNEA COLOR: KENNY NAQVIITA 04/19/2020 9:11:17 AM > 1. PINK SKIN: DRISSFELIPA 04/19/2020 9:11:24 AM > 1. WARM, DRY POSITION: KENNY NAQVIITA 04/19/2020 9:25:11 AM > 1. PRONE VITALS: KENNY NAQVIITA 04/19/2020 9:25:34 AM > 151/87,82,16, 97% DRISSFELIPA 04/19/2020 9:38:34 AM > 145/89,83,18, 96% DRISSFELIPA 04/19/2020 9:48:04 AM > C/O FEELING DIZZY 147/93,86,16,98% DRISSFELIPA 04/19/2020 9:53:31 AM > 152/95,83,16, 96% DRISSFELIPA 04/19/2020 10:06:49 AM > 139/93, 82,16, 97% DISCHARGE: POST PAIN 1/10 LOW BACK, 4/10 RIGHT HIP AND LEG, IV N/A, GAIT STEADY, TEACHING COMPLETED, PATIENT ACKNOWLEDGES UNDERSTANDING YES POST PROCEDURE INSTRUCTIONS GIVEN TO AND REVIEWED WITH PT. AND HE VERBALIZED UNDERSTANDING. AD, PATIENT DISCHARGED AT 1009 : PATIENT AWARE THAT B/P IS ELEVATED, ASYMP. ADVISED TO MONITOR AT HOME AND IF IT CONTINUES TO BE ELEVATED HE SHOULD CONTACT HIS PCP. PT. VERBALIZED UNDERSTANDING. AD PN LUMBAR FACET BLOCK DIAGNOSTIC PRE PROCEDURE DIAGNOSIS LUMBAR SPONDYLOSIS, LUMBOSACRAL SPONDYLOSIS POST PROCEDURE DIAGNOSIS LUMBAR SPONDYLOSIS, LUMBOSACRAL SPONDYLOSIS PROCEDURE RIGHT L4-L5 AND RIGHT L5-S1 FACET BLOCK DIAGNOSTIC NUMBER [address] MILKA CHAVEZ JAVA PERFORMANCE ENGINEER NONE ANESTHESIA LOCAL PRE PROCEDURE NOTE THE PATIENT WITH HISTORY OF CHRONIC LOW BACK PAIN. I EVALUATED THE PATIENT AND REVIEWED THE CHART. I WENT OVER THE RISKS, ALTERNATIVES, AND BENEFITS ASSOCIATED WITH THIS PROCEDURE. THE PATIENT WOULD LIKE TO PROCEED AND GAVE CONSENT TO PERFORM THE PROCEDURE. AGREED WITH THE PATIENT, WE ARE DOING THIS PROCEDURE TO DETERMINE IF THE PATIENT IS A CANDIDATE FOR A RADIOFREQUENCY ABLATION OF THE FACETS JOINTS. THE PATIENT DENIES UNEXPLAINABLE WEIGHT LOSS, FEVER, CHILLS, OR NEW CHANGES IN URINARY OR BOWEL CONTROL. THE PATIENT IS COVID-19 NEGATIVE DESCRIPTION OF PROCEDURE THE PATIENT WAS BROUGHT TO THE PROCEDURE ROOM AND PLACED IN THE PRONE POSITION. THE LUMBOSACRAL AREA WAS CLEANED WITH CHLORAPREP SOLUTION AND DRAPED ASEPTICALLY. THE PROCEDURE WAS DONE UNDER STERILE CONDITIONS. A TIMEOUT WAS PERFORMED WHERE LATERALITY AND THE SITE OF THE PROCEDURE WERE CHECKED AND CONFIRMED WITH EVERYONE IN THE ROOM. UNDER FLUOROSCOPIC GUIDANCE, TARGETS WERE SELECTED AT THE INTERSECTION OF THE RIGHT TRANSVERSE PROCESS OF L4, L5 AND ALA OF S1 WITH ITS RESPECTIVE SUPERIOR ARTICULAR PROCESS. I CONFIRMED AGAIN WITH EVERYONE IN THE ROOM THE LATERALITY OF THE TARGET AT 0944. LIDOCAINE WAS USED TO NUMB THE SKIN AND THE SUBCUTANEOUS TISSUE BELOW IT. SPINAL NEEDLE, 22-GAUGE, WAS ADVANCED UNDER FLUOROSCOPIC GUIDANCE AND FOLLOWING PATIENT FEEDBACK UNTIL THE TARGETS WERE REACHED. POSITION OF THE NEEDLES WAS VERIFIED WITH AP AND LATERAL VIEWS. AFTER PROPER POSITION OF THE NEEDLES WAS ACHIEVED, ISOVUE-M DYE 30%, 0.1 ML, WAS INJECTED AT EACH SITE SHOWING ADEQUATE SPREAD OF THE DYE. THEN, A SOLUTION OF 0.4 ML OF BUPIVACAINE 0.25% WAS INJECTED AT EACH SITE. THE MEDICATIONS WERE VERIFIED WITH THE NURSE. THERE WAS NO EVIDENCE OF BLOOD, PARESTHESIA OR CEREBROSPINAL FLUID DURING THE PROCEDURE. THE PATIENT WAS SENT TO THE RECOVERY ROOM. THE PATIENT WAS MOVING THE EXTREMITIES AND DOING WELL. THERE WERE NO COMPLICATIONS DURING THE PROCEDURE. ESTIMATED BLOOD LOSS WAS LESS THAN 5 ML. FLUOROSCOPY TIME WAS 26 SECONDS POST PROCEDURE NOTE IF WE DO A RADIOFREQUENCY AND THERE IS A PERSISTENT HIGHER PAIN, WE SHOULD WORK WITH L3-L4 ALSO. THE PATIENT WILL DOCUMENT THE PAIN LEVEL AND RESPONSE TO THIS PROCEDURE PER PAIN DIARY. THE PATIENT WILL BE SEEN IN A FOLLOW UP IN THE NEXT FEW WEEKS. FURTHER DETERMINATION FOR THE PATIENT'S CASE WILL BE DONE AT THE NEXT VISIT. INSTRUCTIONS WERE GIVEN, QUESTIONS WERE ANSWERED, AND THE PATIENT EXPRESSED UNDERSTANDING AND AGREED WITH THE PLAN. I, ALVINO FARNSWORTH, DOCUMENTED THE ABOVE INFORMATION ACTING A SCRIBE FOR DR. CHAVEZ. I HAVE REVIEWED THE ABOVE DOCUMENT, WRITTEN BY ALVINO FARNSWORTH, PATTERN CHART WRITER, AND I VERIFY THAT IT IS ACCURATE PROCEDURE CODES 71455 INJ PARAVERT F JNT L/S 1 LEV, MODIFIERS: [place] [id number] INJ PARAVERT F JNT L/S 2 LEV, MODIFIERS: RT DISPOSITION & COMMUNICATION FOLLOW UP FOLLOW UP WITH RELIEF MANAGER (REASON: POST DIAGNOSTIC RIGHT L4-L5, L5-S1) ELECTRONICALLY SIGNED BY MILKA CHAVEZ MD, MD ON 04/19/2020 AT 01:50 PM EDT DISCLAIMER : THIS IS A VISIT SUMMARY EXTRACTED FROM THE [employer] CHART. IT IS NOT A COPY OF THE [facility] PROGRESS NOTE. MTDD
--- NOTE | 2020-04-22 10:30 | REP ---
PARTIAL LUMBAR SPINE SERIES: SINGLE VIEW HISTORY: Diagnostic facet block for pain. FLUROSCOPY TIME: 26 seconds reported. FINDINGS: A single [id number] fluoroscopically obtained spot radiograph of the lumbar spine documents needle position and contrast injection associated with injection procedure. MTDD
== END ==
LOC: M PAIN 08:30
PROVIDERS: ATTEND Anesthesiology
DX: M47.816 Spondylosis without myelopathy or radiculopathy, lumbar region (principal); M47.817 Spondylosis without myelopathy or radiculopathy, lumbosacral region; I10 Essential (primary) hypertension; F32.9 Major depressive disorder, single episode, unspecified; J30.2 Other seasonal allergic rhinitis; G47.00 Insomnia, unspecified; R73.03 Prediabetes; Z79.84 Long term (current) use of oral hypoglycemic drugs; Z79.899 Other long term (current) drug therapy; Z79.891 Long term (current) use of opiate analgesic; Z88.0 Allergy status to penicillin; Z88.8 Allergy status to other drugs, medicaments and biological substances
CPT/HCPCS: 64493; 64494; Q9967

== ENCOUNTER → 2020-05-03 | Outpatient (CLI) | payer BC ==
[~2020-05-03] MED LIST changes: -BUPIVACAINE HCL 0.25% 30ML VIAL As Ordered ONE; -ISOVUE-M 300 61% 15ML VIAL As Ordered ONE; -LIDOCAINE 1% SDV 30ML VIAL As Ordered ONE
--- NOTE | 2020-05-07 23:49 | ECWPNPC ---
PATIENT NAME: MARIA C MÉNDEZ : 1970 GENDER: MALE VISIT DATE: 05/03/2020 DISCHARGE DATE: 05/03/20 1113 VISIT LOCKED DATE TIME: PHYSICIAN: CHAD VOGT RESOURCE: CHAD VOGT REASON FOR APPOINTMENT 1. F/U... PATIENT IS GETTING LAYED OFF SO HE WANTS TO COME IN BEFORE HIS INSURANCE IS NOT VALID. RTO HISTORY OF PRESENT ILLNESS GENERAL: JUAN J IS BEING SEEN FOR POST PROCEDURE FOLLOW-UP. HAD RIGHT DIAGNOSTIC LUMBAR FACET BLOCK L4-5, L5-S1 #2 ON 04/19/2020. REPORTS 24 HOURS OF GREATER THAN 50% REDUCTION IN RIGHT LOW BACK PAIN AND THEN PAIN RETURNED TO BASELINE. HE IS VERY UNCOMFORTABLE TODAY. PAIN IS LOCATED IN THE RIGHT LOW BACK AND EXTENDS INTO THE RIGHT BUTTOCK AREA. DISCUSSED RADIOFREQUENCY PROCEDURE.-. FALL RISK SCREENING: SCREENING :NO FALLS REPORTED IN THE LAST YEAR PAIN SCREENING: PATIENT HAS A COMPLAINT OF ACUTE OR CHRONIC PAIN :YES LOCATION OF PAIN:OTHER: RIGHT LOW BACK AND RIGHT BUTTOCK INTENSITY OF PAIN (SCALE OF 1 TO 10):7 WHAT DOES YOUR PAIN FEEL LIKE:STABBING DURATION:CONTINOUS PAIN IS INCREASED BY:OTHERS SITTING PAIN IS DECREASED BY:USE OF PAIN MEDICATIONS, OTHERS HEAT NURSING NOTE: -. PAIN CENTER INTAKE QUESTIONS: DO YOU HAVE A HISTORY OF MRSA? :YES LEFT FOOT 2014 NOW RESOLVED DO YOU TAKE A BLOOD THINNERS? :NO DO YOU HAVE ANY BLEEDING DISORDERS? :NO ANY NEW NUMBNESS OR WEAKNESS IN YOUR LEGS OR ARMS? :NO ANY PACEMAKER,DEFIBRILLATOR, OR DORSAL COLUMN STIMULATOR? :NO DO YOU HAVE ANY RASHES OR OPEN SORES? :NO ARE YOU ALLERGIC TO IV DYE? :NO ARE YOU DIABETIC? :YES ANY NEW PROBLEMS WITH YOUR MEDICATIONS? :NO HAVE YOU RECEIVED A VACCINE IN THE PAST 30 DAYS? :NO DO YOU PLAN TO RECEIVE A VACCINE IN THE NEXT 21 DAYS? :NO DO YOU NEED ANY PRESCRIPTION? :NO DO YOU TAKE ANY IMMUNOSUPPRESSIVE MEDICATIONS? :NO IS THERE A CHANCE YOU COULD BE ? :NO ARE YOU BREAST FEEDING? :NO CURRENT MEDICATIONS TAKING ACETAMINOPHEN 500 MG CAPSULE 2 CAPSULES NEEDED ORALLY EVERY 6 HRS TAKING BUPROPION HCL ER (SR) 150 MG TABLET EXTENDED RELEASE 12 HOUR 1 TABLET IN THE MORNING ORALLY BID TAKING IBUPROFEN 200 MG TABLET 1 TABLET NEEDED ORALLY EVERY 6 HRS TAKING METFORMIN HCL 500 MG TABLET 1 TABLET WITH A MEAL ORALLY BID TAKING OXYCODONE HCL 20 MG TABLET 1 ORALLY 1 TAB Q 4-6HR MDD4 NOT-TAKING LINEZOLID 600 MG TABLET 1 TABLET ORALLY EVERY 12 HRS NOT-TAKING SILVER SULFADIAZINE 1 % CREAM 1 APPLICATION TO AFFECTED AREA EXTERNALLY ONCE A DAY NOT-TAKING IBUPROFEN PM 200-38 MG TABLET 2 TABLETS AT BEDTIME NEEDED ORALLY ONCE A DAY NOT-TAKING AMLODIPINE BESYLATE 10 MG TABLET 1 TABLET ORALLY ONCE A DAY NOT-TAKING MINOCYCLINE HCL 100 MG CAPSULE 1 CAPSULE ORALLY EVERY 12 HRS NOT-TAKING DICLOFENAC SODIUM 75 MG TABLET DELAYED RELEASE 1 TABLET WITH FOOD OR MILK ORALLY TWICE A DAY NOT-TAKING NAPROXEN 250 MG TABLET 2 CAP ORALLY THREE DAILY NEEDED MEDICATION LIST REVIEWED AND RECONCILED WITH THE PATIENT PAST MEDICAL HISTORY 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 2 SON(S) - HEALTHY. SOCIAL HISTORY GENERAL: TOBACCO USE ARE YOU A:NONSMOKER LATEX QUESTIONNAIRE LATEX ALLERGY : HAVE YOU EVER DEVELOPED ANY TYPE OF REACTION AFTER HANDLING LATEX PRODUCTS SUCH RUBBER GLOVES, CONDOMS, DIAPHRAGMS, BALLOONS, SOCKS, OR UNDERWEAR?NO LATEX ALLERGY : HAVE YOU EVER DEVELOPED ANY TYPE OF REACTION DURING OR AFTER DENTAL APPOINTMENT, VAGINAL/RECTAL EXAMINATION, SURGICAL PROCEDURE, OR ANY OTHER EXPOSURE?NO DATE ASKED : 04/19/2020 LATEX RISK : HAVE YOU EVER HAD ANY DIFFICULTY BREATHING OR HIVES AFTER EATING OR HANDLING ANY FRUITS, OR VEGETABLES; SUCH KIWI, BANANAS, STONE FRUITS, OR CHESTNUTSNO LATEX RISK : DO YOU HAVE A PREVIOUS PERSONAL HISTORY OF MORE THAN NINE SURGERIES, SPINA BIFIDA, OR REPEATED CATHERIZATIONS? NO LATEX RISK : ARE YOU FREQUENTLY EXPOSED TO LATEX PRODUCTS IN YOUR OCCUPATION?NO ALCOHOL SCREENING DID YOU HAVE A DRINK CONTAINING ALCOHOL IN THE PAST YEAR?NO POINTS0 INTERPRETATIONNEGATIVE RECREATIONAL DRUG USE DRUG USE?NO CAFFEINE CAFFEINE USE?YES HOW OFTEN AND HOW MUCH? COFFEE DAILY PRESYBETERIAN [id number] ADVENTISM LANGUAGE LANGUAGES SPOKEN:TURKMEN LEARNING BARRIERS / SPECIAL NEEDS BARRIERS TO LEARNING?NO HEARING IMPAIRED?NO VISION IMPAIRED?YES COGNITIVELY IMPAIRED?NO :CORRECTIVE LENSES READINESS TO LEARN?YES LEARNING PREFERENCES?NO LEARNING CAPABILITIES PRESENT?YES EMOTIONAL BARRIERS?NO SPECIAL DEVICES?NO TALENT ACQUISITION CONSULTANT NEEDED?NO DOMESTIC VIOLENCE DO YOU FEEL SAFE IN YOUR ENVIRONMENT?YES DIET: CARBOHYDRATE CONTROLLED, LOW SALT, LOW SUGAR. MARITAL STATUS: . OTHERS AT HOME: SPOUSE. PAIN CLINIC PFS, CLERGY, PUBLIC HEALTH REFERRALS PFS REFERRAL NEEDED?NO CLERGY REFERRAL NEEDED?NO PUBLIC HEALTH REFERRAL NEEDED?NO HAS THE PATIENT BEEN EDUCATED REGARDING HIS/HER PLAN OF CARE?YES HAS THE PATIENT BEEN EDUCATED REGARDING PAIN, THE RISK FOR PAIN, THE IMPORTANCE OF EFFECTIVE PAIN MANAGEMENT, AND THE PAIN ASSESSMENT PROCESS?YES ADVANCE DIRECTIVE ADVANCE DIRECTIVE DISCUSSED WITH PATIENT:YES STATES HCP IS HIS - ALYSSIA MÉNDEZ; NO DOCUMENT PROVIDED HOSPITALIZATION/MAJOR DIAGNOSTIC PROCEDURE RELATED TO SURGIERIES FOOT INFECTION - OSTEOMYELITIS 04/2018 REVIEW OF SYSTEMS CONSTITUTIONAL: ANY RECENT FEVER NO . CHILLS NO . WEIGHT CHANGE OF UNKNOWN REASONS NO . GASTROENTEROLOGY: NEW UNEXPLAINABLE CHANGES IN BOWEL CONTROL NO . CONSTIPATION NO . GENITOURINARY: ANY NEW CHANGE IN BLADDER CONTROL? NO . NEUROLOGY: NEW ONSET DIZZINESS OR NEUROLOGICAL CHANGES NOT MENTIONED NO . NEW NUMBNESS OR PAIN PATTERNS NOT MENTIONED AND PERTINENT TO TODAY'S VISIT NO . CARDIOLOGY: NEW CHEST PRESSURE NO . NEW CHEST PAIN NO . RESPIRATORY: UNEXPLAINABLE COUGH NO . NEW SHORTNESS OF BREATH NO . VITAL SIGNS WT 294.2 LBS, HT 76 IN, BMI 35.81 INDEX, BP 139/84 MM HG, HR 91 /MIN, RR 18 /MIN, TEMP 97.6 F, OXYGEN SAT % 98%, NA INITIALS SC 10:38, REVIEWED BY: LILIA. EXAMINATION GENERAL EXAMINATION: GENERAL AWAKE,ALERT ,PLEASANT . PSYCH AFFECT NORMAL . LUNGS: LUNG PRYOR ARE CLEAR TO AUSCULTATION BILATERALLY. GOOD MOVEMENT OF AIR . HEART: S1, S2 IN A REGULAR RATE AND RHYTHM. NO SIGNIFICANT MURMURS, RUBS OR GALLOPS NOTED . LUMBAR:PALPATION: + FOR PAIN OVER L/S SPINE. + FOR PAIN OVER L/S PARASPINALS SPECIFIC POINT TENDERNESS OVER RIGHT L4-5, L5-S1 LUMBAR FACETS WITH FACET LOADING. NEUROLOGIC EXAM: NORMAL SENSATION LIGHT TOUCH BILAT. LOWER EXTREMITIES . DIAGNOSTIC TESTS REVIEWED MRI L/S SPINE-04/22/19. ASSESSMENTS SPONDYLOSIS WITHOUT MYELOPATHY OR RADICULOPATHY, LUMBAR REGION - M47.816 (PRIMARY) OTHER CHRONIC PAIN - G89.29 TREATMENT SPONDYLOSIS WITHOUT MYELOPATHY OR RADICULOPATHY, LUMBAR REGION NOTES: RIGHT L4-5, L5-S1 COOL RADIOFREQUENCY. OTHER CHRONIC PAIN PAIN PROCEDURE LOGDATE OF [id number]/12/2020PROCEDURE:RIGHT LUMBAR FACET BLOCK L4-5, L5-S1 DIAGNOSTIC #2AMOUNT OF PRE SEDATENONERESULT:MARKED REDUCTION IN PAIN X24 HOURS POST PROCEDURE PROCEDURE CODES FA211 ESTABILISHED PATIENT [facility] CHARGE DISPOSITION & COMMUNICATION FOLLOW UP SCHEDULE BEFORE 05/23/2020/POST PROCEDURE FOLLOW-UP (REASON: RIGHT L4-5, L5-S1 COOL RADIOFREQUENCY) ELECTRONICALLY SIGNED BY BEBO RUTHERFORD ON 05/07/2020 AT 03:02 PM EDT DISCLAIMER : THIS IS A VISIT SUMMARY EXTRACTED FROM THE [employer] CHART. IT IS NOT A COPY OF THE [employer] PROGRESS NOTE. TERESO
== END ==
LOC: M PAIN 09:45
PROVIDERS: ATTEND Nurse Practitioner Family
DX: G89.29 Other chronic pain (principal); M47.816 Spondylosis without myelopathy or radiculopathy, lumbar region; I10 Essential (primary) hypertension; F32.9 Major depressive disorder, single episode, unspecified; J30.2 Other seasonal allergic rhinitis; G47.00 Insomnia, unspecified; R73.03 Prediabetes; Z79.84 Long term (current) use of oral hypoglycemic drugs; Z79.891 Long term (current) use of opiate analgesic; Z79.899 Other long term (current) drug therapy; Z88.0 Allergy status to penicillin; Z88.8 Allergy status to other drugs, medicaments and biological substances

== ENCOUNTER → 2020-06-29 | Outpatient (CLI) | payer BC ==
--- NOTE | 2020-07-08 00:25 | ECWPNPC ---
PATIENT NAME: MARIA C MÉNDEZ : 1970 GENDER: MALE VISIT DATE: 06/29/2020 DISCHARGE DATE: 06/29/20 1406 VISIT LOCKED DATE TIME: PHYSICIAN: CHAD VOGT RESOURCE: CHAD VOGT REASON FOR APPOINTMENT 1. PER CHAD HISTORY OF PRESENT ILLNESS PAIN CENTER INTAKE QUESTIONS: DO YOU HAVE A HISTORY OF MRSA? :NO DO YOU TAKE A BLOOD THINNERS? :NO DO YOU HAVE ANY BLEEDING DISORDERS? :NO ANY NEW NUMBNESS OR WEAKNESS IN YOUR LEGS OR ARMS? :NO ANY PACEMAKER,DEFIBRILLATOR, OR DORSAL COLUMN STIMULATOR? :NO DO YOU HAVE ANY RASHES OR OPEN SORES? :NO ARE YOU ALLERGIC TO IV DYE? :NO ARE YOU DIABETIC? :YES ANY NEW PROBLEMS WITH YOUR MEDICATIONS? :NO HAVE YOU RECEIVED A VACCINE IN THE PAST 30 DAYS? :NO DO YOU PLAN TO RECEIVE A VACCINE IN THE NEXT 21 DAYS? :NO DO YOU NEED ANY PRESCRIPTION? :NO DO YOU TAKE ANY IMMUNOSUPPRESSIVE MEDICATIONS? :NO IS THERE A CHANCE YOU COULD BE ? :NO ARE YOU BREAST FEEDING? :NO GENERAL: PATIENT IS BEING SEEN FOR PERSISTENT LOW BACK PAIN. AWAITING NEW INSURANCE TO REQUEST RADIOFREQUENCY PROCEDURE. HE HAD DIAGNOSTIC TESTING DONE ON RIGHT L4-5, L5-S1 AND WE ARE READY TO PROCEED WITH RADIOFREQUENCY PROCEDURE. NEW INSURANCE WILL BE AVAILABLE SOON AT WHICH POINT WE WILL REQUEST THIS PROCEDURE. CONTINUES IN A LARGE AMOUNT OF PAIN. PAIN IS AGGRAVATED BY RANGE OF JOINT MOTION OF SPINE AND WALKING. FINDS CURRENT CHRONIC PAIN MEDICATION HELPFUL AT REDUCING PAIN AND KEEPING HIM FUNCTIONAL. DENIES ADVERSE EFFECTS WITH MEDICATION. BRINGS IN HIS MEDICATION WHICH IS APPROPRIATE FOR WHAT WAS DISPENSED. -. FALL RISK SCREENING: SCREENING :NO FALLS REPORTED IN THE LAST YEAR PAIN SCREENING: PATIENT HAS A COMPLAINT OF ACUTE OR CHRONIC PAIN :NO NURSING NOTE: -. CURRENT MEDICATIONS TAKING BUPROPION HCL ER (SR) 150 MG TABLET EXTENDED RELEASE 12 HOUR 1 TABLET IN THE MORNING ORALLY BID TAKING IBUPROFEN 200 MG TABLET 1 TABLET NEEDED ORALLY EVERY 6 HRS TAKING METFORMIN HCL 500 MG TABLET 1 TABLET WITH A MEAL ORALLY BID TAKING OXYCODONE HCL 20 MG TABLET 1 ORALLY 1 TAB Q 4-6HR MDD4 TAKING LINEZOLID 600 MG TABLET 1 TABLET ORALLY EVERY 12 HRS TAKING AMLODIPINE BESYLATE 10 MG TABLET 1 TABLET ORALLY ONCE A DAY NOT-TAKING SILVER SULFADIAZINE 1 % CREAM 1 APPLICATION TO AFFECTED AREA EXTERNALLY ONCE A DAY NOT-TAKING IBUPROFEN PM 200-38 MG TABLET 2 TABLETS AT BEDTIME NEEDED ORALLY ONCE A DAY NOT-TAKING DICLOFENAC SODIUM 75 MG TABLET DELAYED RELEASE 1 TABLET WITH FOOD OR MILK ORALLY TWICE A DAY NOT-TAKING NAPROXEN 250 MG TABLET 2 CAP ORALLY THREE DAILY NEEDED UNKNOWN ACETAMINOPHEN 500 MG CAPSULE 2 CAPSULES NEEDED ORALLY EVERY 6 HRS UNKNOWN MINOCYCLINE HCL 100 MG CAPSULE 1 CAPSULE ORALLY EVERY 12 HRS MEDICATION LIST REVIEWED AND RECONCILED WITH THE PATIENT PAST MEDICAL HISTORY 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 2 SON(S) - HEALTHY. SOCIAL HISTORY GENERAL: TOBACCO USE ARE YOU A:NONSMOKER LATEX QUESTIONNAIRE LATEX ALLERGY : HAVE YOU EVER DEVELOPED ANY TYPE OF REACTION AFTER HANDLING LATEX PRODUCTS SUCH RUBBER GLOVES, CONDOMS, DIAPHRAGMS, BALLOONS, SOCKS, OR UNDERWEAR?NO LATEX ALLERGY : HAVE YOU EVER DEVELOPED ANY TYPE OF REACTION DURING OR AFTER DENTAL APPOINTMENT, VAGINAL/RECTAL EXAMINATION, SURGICAL PROCEDURE, OR ANY OTHER EXPOSURE?NO DATE ASKED : 04/19/2020 LATEX RISK : HAVE YOU EVER HAD ANY DIFFICULTY BREATHING OR HIVES AFTER EATING OR HANDLING ANY FRUITS, OR VEGETABLES; SUCH KIWI, BANANAS, STONE FRUITS, OR CHESTNUTSNO LATEX RISK : DO YOU HAVE A PREVIOUS PERSONAL HISTORY OF MORE THAN NINE SURGERIES, SPINA BIFIDA, OR REPEATED CATHERIZATIONS? NO LATEX RISK : ARE YOU FREQUENTLY EXPOSED TO LATEX PRODUCTS IN YOUR OCCUPATION?NO ALCOHOL SCREENING DID YOU HAVE A DRINK CONTAINING ALCOHOL IN THE PAST YEAR?NO POINTS0 INTERPRETATIONNEGATIVE RECREATIONAL DRUG USE DRUG USE?NO CAFFEINE CAFFEINE USE?YES HOW OFTEN AND HOW MUCH? COFFEE DAILY ADVENTIST [id number] [employer]IN[employer] LANGUAGE LANGUAGES SPOKEN:SLOVAK LEARNING BARRIERS / SPECIAL NEEDS BARRIERS TO LEARNING?NO HEARING IMPAIRED?NO VISION IMPAIRED?YES COGNITIVELY IMPAIRED?NO :CORRECTIVE LENSES READINESS TO LEARN?YES LEARNING PREFERENCES?NO LEARNING CAPABILITIES PRESENT?YES EMOTIONAL BARRIERS?NO SPECIAL DEVICES?NO CONSULTING HR PROFESSIONAL NEEDED?NO DOMESTIC VIOLENCE DO YOU FEEL SAFE IN YOUR ENVIRONMENT?YES DIET: CARBOHYDRATE CONTROLLED, LOW SALT, LOW SUGAR. MARITAL STATUS: . OTHERS AT HOME: SPOUSE. PAIN CLINIC PFS, CLERGY, PUBLIC HEALTH REFERRALS PFS REFERRAL NEEDED?NO CLERGY REFERRAL NEEDED?NO PUBLIC HEALTH REFERRAL NEEDED?NO HAS THE PATIENT BEEN EDUCATED REGARDING HIS/HER PLAN OF CARE?YES HAS THE PATIENT BEEN EDUCATED REGARDING PAIN, THE RISK FOR PAIN, THE IMPORTANCE OF EFFECTIVE PAIN MANAGEMENT, AND THE PAIN ASSESSMENT PROCESS?YES ADVANCE DIRECTIVE ADVANCE DIRECTIVE DISCUSSED WITH PATIENT:YES STATES HCP IS HIS - ALYSSIA MÉNDEZ; NO DOCUMENT PROVIDED HOSPITALIZATION/MAJOR DIAGNOSTIC PROCEDURE RELATED TO SURGIERIES FOOT INFECTION - OSTEOMYELITIS 04/2018 REVIEW OF SYSTEMS CONSTITUTIONAL: ANY RECENT FEVER NO . CHILLS NO . WEIGHT CHANGE OF UNKNOWN REASONS NO . GASTROENTEROLOGY: NEW UNEXPLAINABLE CHANGES IN BOWEL CONTROL NO . CONSTIPATION NO . GENITOURINARY: ANY NEW CHANGE IN BLADDER CONTROL? NO . NEUROLOGY: NEW ONSET DIZZINESS OR NEUROLOGICAL CHANGES NOT MENTIONED NO . NEW NUMBNESS OR PAIN PATTERNS NOT MENTIONED AND PERTINENT TO TODAY'S VISIT NO . CARDIOLOGY: NEW CHEST PRESSURE NO . NEW CHEST PAIN NO . RESPIRATORY: UNEXPLAINABLE COUGH NO . NEW SHORTNESS OF BREATH NO . VITAL SIGNS WT 300.2 LBS, HT 76 IN, BMI 36.54 INDEX, BP 165/90 MM HG, HR 84 /MIN, RR 18 /MIN, TEMP 97.2 F, OXYGEN SAT % 99%, SAFE IN ENV? (Y/N) YES, NA INITIALS [id number], REVIEWED BY: KG. EXAMINATION GENERAL EXAMINATION: GENERAL AWAKE,ALERT ,PLEASANT . PSYCH AFFECT NORMAL . LUNGS: LUNG PRYOR ARE CLEAR TO AUSCULTATION BILATERALLY. GOOD MOVEMENT OF AIR . HEART: S1, S2 IN A REGULAR RATE AND RHYTHM. NO SIGNIFICANT MURMURS, RUBS OR GALLOPS NOTED . LUMBAR:PALPATION: + FOR PAIN OVER L/S SPINE. + FOR PAIN OVER L/S PARASPINALS SPECIFIC POINT TENDERNESS OVER RIGHT L4-5, L5-S1 LUMBAR FACETS WITH FACET LOADING. NEUROLOGIC EXAM: NORMAL SENSATION LIGHT TOUCH BILAT. LOWER EXTREMITIES . DIAGNOSTIC TESTS REVIEWED MRI L/S SPINE-04/22/19. ASSESSMENTS LUMBAR POST-LAMINECTOMY SYNDROME - M96.1 (PRIMARY) SPONDYLOSIS WITHOUT MYELOPATHY OR RADICULOPATHY, LUMBAR REGION - M47.816 CHRONIC USE OF OPIATE DRUGS THERAPEUTIC PURPOSES - Z79.891 TREATMENT LUMBAR POST-LAMINECTOMY SYNDROME NOTES: REQUEST RIGHT L45, L5-S1 COOL RADIOFREQUENCY. PROCEDURE CODES FA211 ESTABILISHED PATIENT [facility] CHARGE DISPOSITION & COMMUNICATION FOLLOW UP POST PROCEDURE (REASON: REQUEST RIGHT L45, L5-S1 COOL RADIOFREQUENCY) ELECTRONICALLY SIGNED BY BEBO RUTHERFORD ON 07/07/2020 AT 04:13 PM EST DISCLAIMER : THIS IS A VISIT SUMMARY EXTRACTED FROM THE [employer] CHART. IT IS NOT A COPY OF THE [employer] PROGRESS NOTE. TERESO
== END ==
LOC: M PAIN 14:00
PROVIDERS: ATTEND Nurse Practitioner Family
DX: M96.1 Postlaminectomy syndrome, not elsewhere classified (principal); M47.816 Spondylosis without myelopathy or radiculopathy, lumbar region; G47.00 Insomnia, unspecified; E11.9 Type 2 diabetes mellitus without complications; Z86.14 Personal history of Methicillin resistant Staphylococcus aureus infection; Z86.59 Personal history of other mental and behavioral disorders; Z88.1 Allergy status to other antibiotic agents; Z88.3 Allergy status to other anti-infective agents; Z79.84 Long term (current) use of oral hypoglycemic drugs; Z79.891 Long term (current) use of opiate analgesic; Z79.899 Other long term (current) drug therapy

== ENCOUNTER → 2020-06-29 | Outpatient (CLI) | payer BC | LOC: M PAIN 13:15 | PROVIDERS: ATTEND Nurse Practitioner Family | DX: M96.1 Postlaminectomy syndrome, not elsewhere classified (principal); M47.816 Spondylosis without myelopathy or radiculopathy, lumbar region; G47.00 Insomnia, unspecified; E11.9 Type 2 diabetes mellitus without complications; Z86.14 Personal history of Methicillin resistant Staphylococcus aureus infection; Z86.59 Personal history of other mental and behavioral disorders; Z88.1 Allergy status to other antibiotic agents; Z88.3 Allergy status to other anti-infective agents; Z79.84 Long term (current) use of oral hypoglycemic drugs; Z79.891 Long term (current) use of opiate analgesic; Z79.899 Other long term (current) drug therapy ==

== ENCOUNTER → 2020-11-19 | Outpatient (CLI) | payer OTHER ==
--- NOTE | 2020-11-23 01:16 | ECWPNPC ---
PATIENT NAME: MARIA C MÉNDEZ : 1970 GENDER: MALE VISIT DATE: 11/19/2020 DISCHARGE DATE: 11/19/20 1443 VISIT LOCKED DATE TIME: PHYSICIAN: CHAD VOGT RESOURCE: CHAD VOGT REASON FOR APPOINTMENT 1. F/U HISTORY OF PRESENT ILLNESS DEPRESSION SCREENING: PHQ-2 (2015 EDITION) LITTLE INTEREST OR PLEASURE IN DOING THINGS?NOT AT ALL FEELING DOWN, DEPRESSED, OR HOPELESS?NOT AT ALL TOTAL SCORE0 GENERAL: HERE FOR FOLLOW-UP OF CHRONIC RIGHT SIDED LOW BACK PAIN. HISTORY OF POSTLAMINECTOMY PAIN SYNDROME. PATIENT WAS UNABLE TO HAVE RADIOFREQUENCY DONE PLANNED. 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 THIS IS A MEDICATION MANAGEMENT VISIT. BRINGS IN HIS MEDICINE WHICH IS APPROPRIATE FOR WHAT WAS DISPENSED. -. FALL RISK SCREENING: SCREENING : NO FALLS REPORTED IN THE LAST YEAR. PAIN SCREENING: PATIENT HAS A COMPLAINT OF ACUTE OR CHRONIC PAIN :YES LOCATION OF PAIN:LOW BACK INTENSITY OF PAIN (SCALE OF 1 TO 10):7 WHAT DOES YOUR PAIN FEEL LIKE:BURNING, CONTINOUS, THROBBING DURATION:CONTINOUS, CONSTANT, ALL DAY PAIN IS INCREASED BY:ACTIVITIES, PROLONGED STANDING PAIN IS DECREASED BY:USE OF PAIN MEDICATIONS NURSING NOTE: -. PAIN CENTER INTAKE QUESTIONS: DO YOU HAVE A HISTORY OF MRSA? :YES 2015 DO YOU TAKE A BLOOD THINNERS? :NO DO YOU HAVE ANY BLEEDING DISORDERS? :NO ANY NEW NUMBNESS OR WEAKNESS IN YOUR LEGS OR ARMS? :YES MOSTY THE PAIN IS ON THE RIGHT SIDE OF THE BODY ANY PACEMAKER,DEFIBRILLATOR, OR DORSAL COLUMN STIMULATOR? :NO DO YOU HAVE ANY RASHES OR OPEN SORES? :NO ARE YOU ALLERGIC TO IV DYE? :YES ARE YOU DIABETIC? :YES ANY NEW PROBLEMS WITH YOUR MEDICATIONS? :NO HAVE YOU RECEIVED A VACCINE IN THE PAST 30 DAYS? :NO DO YOU PLAN TO RECEIVE A VACCINE IN THE NEXT 21 DAYS? :NO DO YOU NEED ANY PRESCRIPTION? :NO DO YOU TAKE ANY IMMUNOSUPPRESSIVE MEDICATIONS? :NO IS THERE A CHANCE YOU COULD BE ? :NO ARE YOU BREAST FEEDING? :NO CURRENT MEDICATIONS TAKING BUPROPION HCL ER (SR) 150 MG TABLET EXTENDED RELEASE 12 HOUR 1 TABLET IN THE MORNING ORALLY BID TAKING IBUPROFEN 200 MG TABLET 1 TABLET NEEDED ORALLY EVERY 6 HRS TAKING METFORMIN HCL 500 MG TABLET 1 TABLET WITH A MEAL ORALLY BID TAKING OXYCODONE HCL 20 MG TABLET 1 ORALLY 1 TAB Q 4-6HR MDD4 NOT-TAKING LINEZOLID 600 MG TABLET 1 TABLET ORALLY EVERY 12 HRS NOT-TAKING AMLODIPINE BESYLATE 10 MG TABLET 1 TABLET ORALLY ONCE A DAY NOT-TAKING SILVER SULFADIAZINE 1 % CREAM 1 APPLICATION TO AFFECTED AREA EXTERNALLY ONCE A DAY NOT-TAKING IBUPROFEN PM 200-38 MG TABLET 2 TABLETS AT BEDTIME NEEDED ORALLY ONCE A DAY NOT-TAKING DICLOFENAC SODIUM 75 MG TABLET DELAYED RELEASE 1 TABLET WITH FOOD OR MILK ORALLY TWICE A DAY NOT-TAKING NAPROXEN 250 MG TABLET 2 CAP ORALLY THREE DAILY NEEDED UNKNOWN ACETAMINOPHEN 500 MG CAPSULE 2 CAPSULES NEEDED ORALLY EVERY 6 HRS UNKNOWN MINOCYCLINE HCL 100 MG CAPSULE 1 CAPSULE ORALLY EVERY 12 HRS MEDICATION LIST REVIEWED AND RECONCILED WITH THE PATIENT PAST MEDICAL HISTORY MRSA OSTEOMYELITIS OF LEFT FIFTH METATARSAL 08/20/2013 HYPERTENSION DEPRESSION SESONAL ALLERGIES KIDNEYS MISSHAPED INSOMNIA PRE-DIABETES ASCVD 10 YR RISK: 4.3% (DECEMBER 2013) OSTEOMYELITIS LEFT FOOT ALLERGIES AMOXICILLIN: ANAPHYLAXIS - ALLERGY IODINE: ANAPHYLAXIS - ALLERGY SOCIAL HISTORY GENERAL: TOBACCO USE ARE YOU A:NONSMOKER LATEX QUESTIONNAIRE LATEX ALLERGY : HAVE YOU EVER DEVELOPED ANY TYPE OF REACTION AFTER HANDLING LATEX PRODUCTS SUCH RUBBER GLOVES, CONDOMS, DIAPHRAGMS, BALLOONS, SOCKS, OR UNDERWEAR?NO LATEX ALLERGY : HAVE YOU EVER DEVELOPED ANY TYPE OF REACTION DURING OR AFTER DENTAL APPOINTMENT, VAGINAL/RECTAL EXAMINATION, SURGICAL PROCEDURE, OR ANY OTHER EXPOSURE?NO LATEX RISK : HAVE YOU EVER HAD ANY DIFFICULTY BREATHING OR HIVES AFTER EATING OR HANDLING ANY FRUITS, OR VEGETABLES; SUCH KIWI, BANANAS, STONE FRUITS, OR CHESTNUTSNO LATEX RISK : DO YOU HAVE A PREVIOUS PERSONAL HISTORY OF MORE THAN NINE SURGERIES, SPINA BIFIDA, OR REPEATED CATHERIZATIONS? NO LATEX RISK : ARE YOU FREQUENTLY EXPOSED TO LATEX PRODUCTS IN YOUR OCCUPATION?NO DATE ASKED : 11/19/2020 ALCOHOL USE: NO. ALCOHOL SCREENING DID YOU HAVE A DRINK CONTAINING ALCOHOL IN THE PAST YEAR?NO POINTS0 INTERPRETATIONNEGATIVE RECREATIONAL DRUG USE DRUG USE?NO CAFFEINE CAFFEINE USE?YES HOW OFTEN AND HOW MUCH? COFFEE DAILY MANDAEISM [id number] SCIENTOLOGIST LANGUAGE LANGUAGES SPOKEN:MALAY LEARNING BARRIERS / SPECIAL NEEDS CHANGE FROM LAST VISIT?YES BARRIERS TO LEARNING?NO HEARING IMPAIRED?NO VISION IMPAIRED?YES :CORRECTIVE LENSES COGNITIVELY IMPAIRED?NO READINESS TO LEARN?YES LEARNING PREFERENCES?NO LEARNING CAPABILITIES PRESENT?YES EMOTIONAL BARRIERS?NO SPECIAL DEVICES?YES :WALKER NEEDED SPORT PSYCHOLOGIST NEEDED?NO DOMESTIC VIOLENCE DO YOU FEEL SAFE IN YOUR ENVIRONMENT?YES DIET: CARBOHYDRATE CONTROLLED, LOW SALT, LOW SUGAR. MARITAL STATUS: . OTHERS AT HOME: SPOUSE. - PFS REFERRAL NEEDED?NO CLERGY REFERRAL NEEDED?NO PUBLIC HEALTH REFERRAL NEEDED?NO HAS THE PATIENT BEEN EDUCATED REGARDING HIS/HER PLAN OF CARE?YES HAS THE PATIENT BEEN EDUCATED REGARDING PAIN, THE RISK FOR PAIN, THE IMPORTANCE OF EFFECTIVE PAIN MANAGEMENT, AND THE PAIN ASSESSMENT PROCESS?YES ADVANCE DIRECTIVE ADVANCE DIRECTIVE DISCUSSED WITH PATIENT:YES STATES HCP IS HIS - ALYSSIA MÉNDEZ; NO DOCUMENT PROVIDED REVIEW OF SYSTEMS CONSTITUTIONAL: ANY RECENT FEVER NO . CHILLS NO . WEIGHT CHANGE OF UNKNOWN REASONS NO . GASTROENTEROLOGY: NEW UNEXPLAINABLE CHANGES IN BOWEL CONTROL NO . CONSTIPATION NO . GENITOURINARY: ANY NEW CHANGE IN BLADDER CONTROL? NO . NEUROLOGY: NEW ONSET DIZZINESS OR NEUROLOGICAL CHANGES NOT MENTIONED NO . NEW NUMBNESS OR PAIN PATTERNS NOT MENTIONED AND PERTINENT TO TODAY'S VISIT NO . CARDIOLOGY: NEW CHEST PRESSURE NO . PATIENT DENIES NO . RESPIRATORY: UNEXPLAINABLE COUGH NO . NEW SHORTNESS OF BREATH NO . VITAL SIGNS WT 296.8 LBS, HT 76 IN, BMI 36.12 INDEX, BP 164/89 MM HG, HR 94 /MIN, RR 18 /MIN, TEMP 96.0 F, OXYGEN SAT % 97%, SAFE IN ENV? (Y/N) YES, NA INITIALS SC 14:06PATIENT STATED THAT HE HAD 2 CUPS OF COFFEE NARESH SESAY. EXAMINATION GENERAL EXAMINATION: GENERAL AWAKE,ALERT ,PLEASANT . PSYCH AFFECT NORMAL . LUNGS: LUNG PRYOR ARE CLEAR TO AUSCULTATION BILATERALLY. GOOD MOVEMENT OF AIR . HEART: S1, S2 IN A REGULAR RATE AND RHYTHM. NO SIGNIFICANT MURMURS, RUBS OR GALLOPS NOTED . LUMBAR:PALPATION: + FOR PAIN OVER L/S SPINE. + FOR PAIN OVER L/S PARASPINALS SPECIFIC POINT TENDERNESS OVER RIGHT L4-5, L5-S1 LUMBAR FACETS WITH FACET LOADING. NEUROLOGIC EXAM: NORMAL SENSATION LIGHT TOUCH BILAT. LOWER EXTREMITIES . DIAGNOSTIC TESTS REVIEWED MRI L/S SPINE-04/22/19. ASSESSMENTS LUMBAR POST-LAMINECTOMY SYNDROME - M96.1 (PRIMARY) PRISON (CURRENT) USE OF OPIATE ANALGESIC - Z79.891 TREATMENT LUMBAR POST-LAMINECTOMY SYNDROME LAB: URINE TEST GROUP JOSAFAT COLEMAN 11/19/2020 2:39:15 PM > LAST DOSE: OXYCODONE 11/19/2020 THIS MORNING MEDICATION: OXYCODONE HCL TAB 10MG ORALLY (ORDERED FOR 11/26/2020) MEDICATION: VALIUM TAB 10MG ORALLY (DIAZEPAM) (ORDERED FOR 11/26/2020) NOTES: RIGHT LUMBAR COOL RADIOFREQUENCY L4-5,L5-S1 PRINTED AND REVIEWED PRE PROCEDURE INFORMATION, PATIENT VERBALIZED UNDERSTANDING NARESH SESAY. PROCEDURE CODES FA211 ESTABILISHED PATIENT [facility] CHARGE DISPOSITION & COMMUNICATION FOLLOW UP POST (REASON: RIGHT LUMBAR COOL RADIOFREQUENCY L4-5,L5-S1) ELECTRONICALLY SIGNED BY BEBO RUTHERFORD ON 11/22/2020 AT 08:38 AM EDT DISCLAIMER : THIS IS A VISIT SUMMARY EXTRACTED FROM THE [employer] CHART. IT IS NOT A COPY OF THE [facility]. TERESO
== END ==
LOC: M PAIN 14:00
PROVIDERS: ATTEND Nurse Practitioner Family
DX: M96.1 Postlaminectomy syndrome, not elsewhere classified (principal); E11.9 Type 2 diabetes mellitus without complications; G47.00 Insomnia, unspecified; Z86.14 Personal history of Methicillin resistant Staphylococcus aureus infection; Z86.59 Personal history of other mental and behavioral disorders; Z88.1 Allergy status to other antibiotic agents; Z88.3 Allergy status to other anti-infective agents; Z79.84 Long term (current) use of oral hypoglycemic drugs; Z79.891 Long term (current) use of opiate analgesic; Z79.899 Other long term (current) drug therapy

== ENCOUNTER → 2021-01-01 | Outpatient (CLI) | payer OTHER | LOC: M LABSMTC 09:01 | PROVIDERS: ATTEND Anesthesiology | DX: Z11.52 Encounter for screening for COVID-19 (principal) ==

== ENCOUNTER → 2021-01-06 | Outpatient (CLI) | payer OTHER ==
[~2021-01-06] MED LIST changes: +BUPIVACAINE HCL 0.25% 30ML VIAL As Ordered ONE; +LIDOCAINE 1% SDV 30ML VIAL As Ordered ONE; +dexameTHASONE 10MG/1ML VIAL PRES.FREE (J1100 PER 1MG) As Ordered ONE; +diazePAM 5MG TABLET As Ordered ONE
--- NOTE | 2021-01-07 04:06 | ECWPNPC ---
PATIENT NAME: MARIA C MÉNDEZ : 1970 GENDER: MALE VISIT DATE: 01/06/2021 DISCHARGE DATE: 01/06/21 1608 VISIT LOCKED DATE TIME: PHYSICIAN: MILKA CHAVEZ MD RESOURCE: MILKA CHAVEZ MD REASON FOR APPOINTMENT 1. RIGHT LUMBAR COOL RADIOFREQUENCY L4-5,L5-S1 HISTORY OF PRESENT ILLNESS GENERAL: -. FALL RISK SCREENING: SCREENING : NO FALLS REPORTED IN THE LAST YEAR. PAIN SCREENING: PATIENT HAS A COMPLAINT OF ACUTE OR CHRONIC PAIN :YES LOCATION OF PAIN:LOW BACK, RIGHT HIP, LEG(S) RIGHT LEG INTENSITY OF PAIN (SCALE OF 1 TO 10):5 WHAT DOES YOUR PAIN FEEL LIKE:ACHING, CONTINOUS, SHARP, STABBING, THROBBING, SORE, SHOOTING SOMETIMES SHARP AND SHOOTING DURATION:CONTINOUS, CONSTANT, AWAKENS FROM SLEEP PAIN IS INCREASED BY:OTHERS PROLONGED SITTING AND PROLONGED WALKING PAIN IS DECREASED BY:USE OF PAIN MEDICATIONS, OTHERS HEAT PAIN HAS INTERFERED WITH THE FOLLOWING: PRETTY MUCH EVERYTHING-HE JUST WORKS THROUGH THE PAIN NURSING NOTE: -. PAIN CENTER INTAKE QUESTIONS: DO YOU HAVE A HISTORY OF MRSA? :YES 2013 LEFT FOOT ENDED UP PARTIAL AMPUTATION DO YOU TAKE A BLOOD THINNERS? :NO DO YOU HAVE ANY BLEEDING DISORDERS? :NO ANY NEW NUMBNESS OR WEAKNESS IN YOUR LEGS OR ARMS? :NO ANY PACEMAKER,DEFIBRILLATOR, OR DORSAL COLUMN STIMULATOR? :NO DO YOU HAVE ANY RASHES OR OPEN SORES? :NO ARE YOU ALLERGIC TO IV DYE? :NO DOES HAVE AN IODINE ALLERGY ARE YOU DIABETIC? :NO [id number] NOT CK FSBS AT HOME ANY NEW PROBLEMS WITH YOUR MEDICATIONS? :NO HAVE YOU RECEIVED A VACCINE IN THE PAST 30 DAYS? :NO DO YOU PLAN TO RECEIVE A VACCINE IN THE NEXT 21 DAYS? :NO DO YOU TAKE ANY IMMUNOSUPPRESSIVE MEDICATIONS? :NO ANY HISTORY OF SEIZURES? :NO ANY HISTORY OF CARDIAC ISSUES OR EVENTS? :NO STARTED ON B/P MED SINCE LAST VISIT DO YOU HAVE ANY KIDNEY OR LIVER DISEASE? :NO DO YOU HAVE SLEEP APNEA? :NO ANY RECENT HEAD INJURY? :NO DO YOU HAVE ANY NEW INFECTIONS? :NO IS THERE A CHANCE YOU COULD BE ? :NO ARE YOU BREAST FEEDING? :NO WHEN DID YOU LAST EAT? : 01/06 0500 WHEN DID YOU LAST DRINK? : 01/06 1100 WHAT DID YOU LAST DRINK? : WATER NAME OF PERSON DRIVING YOU HOME? : -ALYSSIA DO YOU HAVE ANY OTHER QUESTIONS OR CONCERNS? : NONE CURRENT MEDICATIONS TAKING BUPROPION HCL ER (SR) 150 MG TABLET EXTENDED RELEASE 12 HOUR 1 TABLET IN THE MORNING ORALLY BID TAKING IBUPROFEN 200 MG TABLET 1 TABLET NEEDED ORALLY EVERY 6 HRS TAKING METFORMIN HCL 500 MG TABLET 1 TABLET WITH A MEAL ORALLY BID, NOTES: 01/05 1630 TAKING LOSARTAN POTASSIUM-HCTZ 50-12.5 MG TABLET 1 TABLET ORALLY ONCE A DAY, NOTES: 01/05 0800 TAKING OXYCODONE HCL 20 MG TABLET 1 ORALLY 1 TAB Q 4-6HR MDD4, NOTES: 01/05 1100 NOT-TAKING LINEZOLID 600 MG TABLET 1 TABLET ORALLY EVERY 12 HRS NOT-TAKING AMLODIPINE BESYLATE 10 MG TABLET 1 TABLET ORALLY ONCE A DAY NOT-TAKING SILVER SULFADIAZINE 1 % CREAM 1 APPLICATION TO AFFECTED AREA EXTERNALLY ONCE A DAY NOT-TAKING IBUPROFEN PM 200-38 MG TABLET 2 TABLETS AT BEDTIME NEEDED ORALLY ONCE A DAY NOT-TAKING DICLOFENAC SODIUM 75 MG TABLET DELAYED RELEASE 1 TABLET WITH FOOD OR MILK ORALLY TWICE A DAY NOT-TAKING NAPROXEN 250 MG TABLET 2 CAP ORALLY THREE DAILY NEEDED NOT-TAKING ACETAMINOPHEN 500 MG CAPSULE 2 CAPSULES NEEDED ORALLY EVERY 6 HRS NOT-TAKING MINOCYCLINE HCL 100 MG CAPSULE 1 CAPSULE ORALLY EVERY 12 HRS MEDICATION LIST REVIEWED AND RECONCILED WITH THE PATIENT PAST MEDICAL HISTORY MRSA OSTEOMYELITIS OF LEFT FIFTH METATARSAL 08/20/2013 HYPERTENSION DEPRESSION SESONAL ALLERGIES KIDNEYS MISSHAPED INSOMNIA PRE-DIABETES ASCVD 10 YR RISK: 4.3% (DECEMBER 2013) OSTEOMYELITIS LEFT FOOT LOW BACK PAIN ALLERGIES AMOXICILLIN: ANAPHYLAXIS - ALLERGY IODINE: ANAPHYLAXIS - ALLERGY SOCIAL HISTORY GENERAL: TOBACCO USE ARE YOU A:NONSMOKER LATEX QUESTIONNAIRE LATEX ALLERGY : HAVE YOU EVER DEVELOPED ANY TYPE OF REACTION AFTER HANDLING LATEX PRODUCTS SUCH RUBBER GLOVES, CONDOMS, DIAPHRAGMS, BALLOONS, SOCKS, OR UNDERWEAR?NO LATEX ALLERGY : HAVE YOU EVER DEVELOPED ANY TYPE OF REACTION DURING OR AFTER DENTAL APPOINTMENT, VAGINAL/RECTAL EXAMINATION, SURGICAL PROCEDURE, OR ANY OTHER EXPOSURE?NO LATEX RISK : HAVE YOU EVER HAD ANY DIFFICULTY BREATHING OR HIVES AFTER EATING OR HANDLING ANY FRUITS, OR VEGETABLES; SUCH KIWI, BANANAS, STONE FRUITS, OR CHESTNUTSNO LATEX RISK : DO YOU HAVE A PREVIOUS PERSONAL HISTORY OF MORE THAN NINE SURGERIES, SPINA BIFIDA, OR REPEATED CATHERIZATIONS? NO LATEX RISK : ARE YOU FREQUENTLY EXPOSED TO LATEX PRODUCTS IN YOUR OCCUPATION?NO DATE ASKED : 01/04/2021 ALCOHOL USE: NO. ALCOHOL SCREENING DID YOU HAVE A DRINK CONTAINING ALCOHOL IN THE PAST YEAR?NO POINTS0 INTERPRETATIONNEGATIVE RECREATIONAL DRUG USE DRUG USE?NO CAFFEINE CAFFEINE USE?YES HOW OFTEN AND HOW MUCH? COFFEE DAILY CONFUCIANIST [id number] HOLINESS LANGUAGE LANGUAGES SPOKEN:EAST TIMORESE LEARNING BARRIERS / SPECIAL NEEDS CHANGE FROM LAST VISIT?NO BARRIERS TO LEARNING?NO HEARING IMPAIRED?NO VISION IMPAIRED?YES :CORRECTIVE LENSES COGNITIVELY IMPAIRED?NO READINESS TO LEARN?YES LEARNING PREFERENCES?NO LEARNING CAPABILITIES PRESENT?YES EMOTIONAL BARRIERS?NO SPECIAL DEVICES?YES :WALKER NEEDED JAVA SOLUTIONS ARCHITECT NEEDED?NO DOMESTIC VIOLENCE DO YOU FEEL SAFE IN YOUR ENVIRONMENT?YES DIET: CARBOHYDRATE CONTROLLED, LOW SALT, LOW SUGAR. MARITAL STATUS: . OTHERS AT HOME: SPOUSE. - PFS REFERRAL NEEDED?NO CLERGY REFERRAL NEEDED?NO PUBLIC HEALTH REFERRAL NEEDED?NO HAS THE PATIENT BEEN EDUCATED REGARDING HIS/HER PLAN OF CARE?YES HAS THE PATIENT BEEN EDUCATED REGARDING PAIN, THE RISK FOR PAIN, THE IMPORTANCE OF EFFECTIVE PAIN MANAGEMENT, AND THE PAIN ASSESSMENT PROCESS?YES ADVANCE DIRECTIVE ADVANCE DIRECTIVE DISCUSSED WITH PATIENT:YES STATES HCP IS HIS - ALYSSIA MÉNDEZ; NO DOCUMENT PROVIDED VITAL SIGNS WT 296.0 LBS, HT 76 IN, BMI 36.03 INDEX, BP 146/79 MM HG, HR 93 /MIN, RR 18 /MIN, TEMP 98.0 F, OXYGEN SAT % 96%, SAFE IN ENV? (Y/N) Y, NA INITIALS AW 1316, REVIEWED BY: April NAQVI RN. EXAMINATION GENERAL: THE PATIENT IS ALERT, ORIENTED TIMES THREE AND COOPERATIVE. LUNGS ARE CLEAR TO AUSCULTATION. HEART SHOWS REGULAR RHYTHM, NO MURMURS AND NO GALLOPS. ASSESSMENTS LUMBAR POST-LAMINECTOMY SYNDROME - M96.1 (PRIMARY) SPONDYLOSIS WITHOUT MYELOPATHY OR RADICULOPATHY, LUMBAR REGION - M47.816 TREATMENT LUMBAR POST-LAMINECTOMY SYNDROME SMC FACET BLOCK (PAIN)[id number] COMPLETION OF PROCEDURAL VISIT WHEN MEETS CRITERIAFELIPA NAQVI 01/06/2021 5:12:17 PM > CRITERIA MET 1605 MEDICATION: VALIUM TAB 10MG ORALLY (DIAZEPAM)RODNEY BYRD 01/06/2021 1:40:42 PM > VERIFIED FELIPA NAQVI 01/06/2021 1:46:47 PM > ADMINISTERED MEDICATION: OXYCODONE HCL TAB 10MG ORALLYDEKENNY MCKEONITA 01/06/2021 1:51:31 PM > PT. DECLINED DUE TO TAKING OXYCODONE AT HOME PRIOR TO COMING IN. DR. CHAVEZ AWARE AND STATED IT WAS OKAY NOT TO ADMINISTER SPONDYLOSIS WITHOUT MYELOPATHY OR RADICULOPATHY, LUMBAR REGION SMC FACET BLOCK (PAIN)[id number] OTHERS NOTES: 01/04/21 1355 PRE-PROCEDURE CALL COMPLETED. April NAQVI RN. PROCEDURES PAIN NURSING RECORD PROCEDURE IN ROOM 1444, PHYSICIAN IN ROOM 1502, START 1507, FINISH 1535, PHYSICIAN OUT OF ROOM 1538, OUT OF ROOM 1545, ECG NORMAL SINUS, PATIENT SHIELDED YES, SAFETY STRAP NO, PREP CHLOROPREP Deangelo GODINEZ RN, DRESSING TEGADERM DR. CHAVEZ LOC: FELIPA NAQVI 01/06/2021 2:06:57 PM > 1. ALERT, ORIENTED FELIPA NAQVI 01/06/2021 4:00:11 PM > 1. ALERT, ORIENTED RESP: FELIPA NAQVI 01/06/2021 2:07:01 PM > 1. REGULAR, NO DYSPNEA FELIPA NAQVI 01/06/2021 4:00:22 PM > 1. REGULAR, NO DYSPNEA COLOR: FELIPA NAQVI 01/06/2021 2:07:07 PM > 1. PINK FELIPA NAQVI 01/06/2021 4:00:29 PM > 1. PINK SKIN: FELIPA NAQVI 01/06/2021 2:07:12 PM > 1. WARM, DRY FELIPA NAQVI 01/06/2021 4:00:35 PM > 1. WARM, DRY POSITION: FELIPA NAQVI 01/06/2021 2:07:16 PM > 2. SUPINE FELIPA NAQVI 01/06/2021 2:47:44 PM > 1. PRONE FELIPA NAQVI 01/06/2021 4:00:39 PM > 5. SITTING VITALS: AW 01/06/21 1400 P 82 02 97% BP 137/76 R 18 AW 1415 P82 02 98 R18 BP 135/70 AW 01/06/21 P 84 02 95 BP 122/65 R 18 FELIPA NAQVI 01/06/2021 2:46:21 PM > 162/85,80,16,100% DRISSFELIPA 01/06/2021 2:55:15 PM > 158/84,80,16,100% DRISS,FELIPA 01/06/2021 3:10:48 PM > 165/89,81,18,100% DRISS,FELIPA 01/06/2021 3:25:10 PM > 163/78,79,18, 100% DRISS,FELIPA 01/06/2021 3:40:59 PM > 161/67,72,18,100% DRISS,FELIPA 01/06/2021 4:00:53 PM > 154/87,81,16,100% NOTES 1555 GROUNDING PAD SITE, POSTERIOR RIGHT THIGH, CLEAR WITHOUT REDNESS OR SWELLING. PENG BRADY COMPLETION OF PROCEDURE APPOINTMENT: POST PAIN 2, DRESSING SITE DRY AND INTACT, IV N/A, GAIT STEADY, TEACHING COMPLETED, PATIENT ACKNOWLEDGES UNDERSTANDING YES, PROCEDURE APPOINTMENT COMPLETED AT 1605 BY: April NAQVI RN PN RADIOFREQUENCY DATE OF PROCEDURE 01/06/2021 THERMO LESION RADIOFREQUENCY > 80 DEGREES : [employer] SYSTEM SET AT 60* WITH TISSUE TARGET TEMP > 80* OR MORE. STRAIGHT NEEDLE SIDE: : RIGHT LEVELS: : L4-L5, L5-S1 NEEDLE/CATHETER/GAUGE: : 17 CANULA LENGTH: : 150 MM ACTIVE TIP: : 4 MM GROUNDING PAD PLACED ON AFFECTED SIDE (MUSCULAR AREA): : LUMBAR (POSTERIOR UPPER THIGH) 1 ST LEVEL: : L3, INITAL POSTIVE SENSORY RESPONE (50 HZ) 0.3, MOTOR RESPONSE (2 HZ-UP TO 3 VOLTS) 3.0, PRE-LOCAL IMPEDENCE READING OHMS 250, POST-LOCAL IMPEDENCE READING OHMS 168, DURING RF IMPEDENCE READING OHMS 171 2 ND LEVEL: : L4, INITIAL POSITIVE SENSORY RESPONSE (50 HZ) 0.4, MOTOR RESPONSE (2 HZ- UP TO 3 VOLTS) 3.0, PRE-LOCAL IMPEDENCE READING OHMS 500, POST-LOCAL IMEPEDENCE READING OHMS 220, DURING RF IMPEDENCE READING OHMS [address] LEVEL: : L5, INITIAL POSITIVE SENSORY RESPONSE (50 HZ) 0.6, MOTOR RESPONSE (2HZ- UP TO 3 VOLTS) 3.0, PRE- LOCAL IMPEDENCE READING OHMS 260, POST-LOCAL IMPEDENCE READING OHMS 130, DURING RF IMPEDENCE READING OHMS 133 PRE PROCEDURE DIAGNOSES 1. LUMBAR SPONDYLOSIS. 2. LUMBOSACRAL SPONDYLOSIS POST PROCEDURE DIAGNOSES 1. LUMBAR SPONDYLOSIS. 2. LUMBOSACRAL SPONDYLOSIS PROCEDURE RIGHT L4-L5 AND RIGHT L5-S1 LUMBAR FACET RADIOFREQUENCY AVANOS COOL RADIOFREQUENCY SURGEON DR. MILKA CHAVEZ BRYOLOGIST NONE ANESTHESIA LOCAL PRE PROCEDURE REPORT THE PATIENT HAS HISTORY OF CHRONIC LOW BACK PAIN. I EVALUATED THE PATIENT AND REVIEWED THE CHART. I WENT OVER THE RISKS, ALTERNATIVES, AND BENEFITS ASSOCIATED WITH THIS PROCEDURE. THE PATIENT WOULD LIKE TO PROCEED AND GAVE CONSENT TO PERFORM THE PROCEDURE. THE PATIENT DENIES UNEXPLAINABLE WEIGHT LOSS, FEVER, CHILLS OR NEW CHANGES IN URINARY OR BOWEL CONTROL. THE PATIENT IS COVID-19 NEGATIVE DESCRIPTION OF PROCEDURE THE PATIENT WAS BROUGHT TO THE PROCEDURE ROOM AND PLACED IN THE PRONE POSITION. A TIMEOUT WAS PERFORMED WHERE THE CONSENTED SITE WAS VERIFIED WITH EVERYONE IN THE ROOM. THE LUMBOSACRAL AREA WAS CLEANED WITH CHLORAPREP SOLUTION AND DRAPED ASEPTICALLY. THE PROCEDURE WAS DONE UNDER STERILE CONDITIONS. UNDER FLUOROSCOPIC GUIDANCE, TARGETS WERE SELECTED AT THE INTERSECTION OF THE RIGHT TRANSVERSE PROCESS OF L4, L5 AND ALA OF S1 WITH ITS RESPECTIVE SUPERIOR ARTICULAR PROCESS. I CONFIRMED AGAIN THE SITE OF TARGET. LIDOCAINE WAS USED TO NUMB THE SKIN AND THE SUBCUTANEOUS TISSUE BELOW IT. RADIOFREQUENCY CANNULAS, 17-GAUGE, 150 MM LONG WITH 4 MM ACTIVE TIP, WERE ADVANCED UNDER FLUOROSCOPIC GUIDANCE AND FOLLOWING PATIENT FEEDBACK UNTIL THE TARGET AREA WAS REACHED. POSITION OF THE CANNULA WAS VERIFIED WITH AP AND LATERAL VIEWS. AFTER PROPER POSITION OF THE CANNULA WAS ACHIEVED, WE WORKED WITH THE RIGHT SELECTED MEDIAN BRANCHES OF L3, L4 AND THE DORSAL RAMI OF L5. WE MEASURED THE CORRESPONDING IMPEDANCES AND MOTOR RESPONSES INDICATED IN THE RADIOFREQUENCY WORK SHEET. POSITION OF THE CANNULA WAS VERIFIED AGAIN WITH AP AND LATERAL VIEWS. LIDOCAINE 1%, 2 ML, WAS INJECTED AT EACH LEVEL. RADIOFREQUENCY WAS DONE AT EACH LEVEL USING THE [place] SYSTEM-- COOLED RF-- WITH A SETTING AT THE MACHINE OF 60 DEGREES WITH A TARGET TISSUE TEMPERATURE OF 80 TO 90 DEGREES FOR A MINIMUM OF 150 SECONDS. AFTER RADIOFREQUENCY WAS DONE, THE PATIENT RECEIVED BUPIVACAINE 0.125%,1 ML, WITH DEXAMETHASONE 3 MG AT EACH SITE. THERE WAS NO EVIDENCE OF BLOOD, PARESTHESIA OR CEREBROSPINAL FLUID DURING THE PROCEDURE. THE PATIENT WAS SENT TO THE RECOVERY ROOMS. THE PATIENT WAS MOVING THE EXTREMITIES AND DOING WELL. EBL LESS THAN 5 ML. THERE WERE NO COMPLICATIONS DURING THE PROCEDURE. FLUOROSCOPY TIME WAS 1 MINUTE 3 SECONDS POST PROCEDURE NOTE THE PATIENT WILL BE SEEN IN A FOLLOW UP IN THE NEXT FEW WEEKS. INSTRUCTIONS WERE GIVEN, QUESTIONS WERE ANSWERED, AND THE PATIENT EXPRESSED UNDERSTANDING AND AGREES WITH THE PLAN. . I, ALVINO FARNSWORTH, DOCUMENTED THE ABOVE INFORMATION ACTING A SCRIBE FOR DR. CHAVEZ. I HAVE REVIEWED THE ABOVE DOCUMENT, WRITTEN BY MIGEL PLATT, AND I VERIFY THAT IT IS ACCURATE PROCEDURE CODES 01088 DESTROY LUMB/SAC FACET JNT, [place]IFI[place]: [place] [address] DESTROY L/S FACET JNT ADDL, MODIFIERS: RT DISPOSITION & COMMUNICATION FOLLOW UP FOLLOW UP WITH WELDER REPAIR (REASON: POST RIGHT LUMBAR COOL RADIOFREQUENCY L4-L5, L5-S1) ELECTRONICALLY SIGNED BY MILKA CHAVEZ MD, MD ON 01/06/2021 AT 06:07 PM EDT DISCLAIMER : THIS IS A VISIT SUMMARY EXTRACTED FROM THE [employer] CHART. IT IS NOT A COPY OF THE [employer] PROGRESS NOTE. TERESO
--- NOTE | 2021-01-07 16:57 | REP ---
INDICATION: RIGHT COOL RADIOFREQUENCY L4-L5, L5-S1. COMPARISON: None. TECHNIQUE: Intraoperative fluoroscopic imaging using portable C-arm technique. FINDINGS: Catheters identified at lower lumbar facet joints. Total fluoroscopic time 1 minutes 20 seconds. IMPRESSION: Findings consistent with radiofrequency facet block <Electronically signed by John Segovia > 01/07/21 [id number]
== END ==
LOC: M PAIN 13:00
PROVIDERS: ATTEND Anesthesiology
DX: M96.1 Postlaminectomy syndrome, not elsewhere classified (principal); M47.816 Spondylosis without myelopathy or radiculopathy, lumbar region; I10 Essential (primary) hypertension; F32.9 Major depressive disorder, single episode, unspecified; J30.2 Other seasonal allergic rhinitis; G47.00 Insomnia, unspecified; R73.03 Prediabetes; M54.5 Low back pain; Z79.891 Long term (current) use of opiate analgesic; Z79.899 Other long term (current) drug therapy; Z88.0 Allergy status to penicillin; Z88.8 Allergy status to other drugs, medicaments and biological substances
CPT/HCPCS: 64635; 64636; J1100

== ENCOUNTER → 2021-01-24 | Outpatient (CLI) | payer OTHER ==
[~2021-01-24] MED LIST changes: -BUPIVACAINE HCL 0.25% 30ML VIAL As Ordered ONE; -LIDOCAINE 1% SDV 30ML VIAL As Ordered ONE; -dexameTHASONE 10MG/1ML VIAL PRES.FREE (J1100 PER 1MG) As Ordered ONE; -diazePAM 5MG TABLET As Ordered ONE
--- NOTE | 2021-01-27 01:14 | ECWPNPC ---
PATIENT NAME: MARIA C MÉNDEZ : 1970 GENDER: MALE VISIT DATE: 01/24/2021 DISCHARGE DATE: 01/24/21 1435 VISIT LOCKED DATE TIME: PHYSICIAN: CHAD VOGT RESOURCE: CHAD VOGT REASON FOR APPOINTMENT 1. POST RIGHT LUMBAR COOL RADIOFREQUENCY L4-5,L5-S1 HISTORY OF PRESENT ILLNESS GENERAL: HERE FOR POSTPROCEDURE FOLLOW-UP. HAD RIGHT LUMBAR COOL RADIOFREQUENCY ON 01/12/2021, L4-5, L5-S1. REPORTING RESOLUTION IN RIGHT LOW BACK PAIN AND IMPROVEMENT IN ABILITY TO GET FROM A SITTING TO STANDING POSITION. HE IS SO THANKFUL NOW BECAUSE HE IS ABLE TO ATTEND TO ACTIVITIES LIKE WALKING WITH HIS SON. TODAY HE IS MENTIONING THAT HE HAS NO CHANGE WITH RIGHT BUTTOCK AND POSTERIOR THIGH PAIN SINCE THE PROCEDURE. THIS HAS BEEN A CHRONIC AREA OF PAIN THAT WAS REDUCED WITH DIAGNOSTIC TESTING FOR SHORT TIME. DISCUSSED THE FACT THAT IT WILL TAKE TIME UP TO 6 TO 8 WEEKS TO SEE THE FULL BENEFITS OF THE PROCEDURE. WE WILL HAVE HIM FOLLOW-UP WITH DR. CHAVEZ TO SEE PROGRESS. -. FALL RISK SCREENING: SCREENING ONE FALL 01/08/2021 DID NO GO THE ER, HAS A CUT ON THE RIGHT HAND.. PAIN SCREENING: PATIENT HAS A COMPLAINT OF ACUTE OR CHRONIC PAIN :YES LOCATION OF PAIN:LOW BACK INTENSITY OF PAIN (SCALE OF 1 TO 10):3 PAIN IS INCREASED BY:OTHERS SITTING, CAN'T SLEEP ON HIS SIDE OF THE BODY NURSING NOTE: -. PAIN CENTER INTAKE QUESTIONS: DO YOU HAVE A HISTORY OF MRSA? :YES 2015 DO YOU TAKE A BLOOD THINNERS? :NO DO YOU HAVE ANY BLEEDING DISORDERS? :NO ANY NEW NUMBNESS OR WEAKNESS IN YOUR LEGS OR ARMS? :YES MOSTY THE PAIN IS ON THE RIGHT SIDE OF THE BODY ANY PACEMAKER,DEFIBRILLATOR, OR DORSAL COLUMN STIMULATOR? :NO DO YOU HAVE ANY RASHES OR OPEN SORES? :NO ARE YOU ALLERGIC TO IV DYE? :YES ARE YOU DIABETIC? :YES ANY NEW PROBLEMS WITH YOUR MEDICATIONS? :NO HAVE YOU RECEIVED A VACCINE IN THE PAST 30 DAYS? :NO DO YOU PLAN TO RECEIVE A VACCINE IN THE NEXT 21 DAYS? :NO DO YOU NEED ANY PRESCRIPTION? :NO DO YOU TAKE ANY IMMUNOSUPPRESSIVE MEDICATIONS? :NO IS THERE A CHANCE YOU COULD BE ? :NO ARE YOU BREAST FEEDING? :NO CURRENT MEDICATIONS TAKING BUPROPION HCL ER (SR) 150 MG TABLET EXTENDED RELEASE 12 HOUR 1 TABLET IN THE MORNING ORALLY BID TAKING IBUPROFEN 200 MG TABLET 1 TABLET NEEDED ORALLY EVERY 6 HRS TAKING METFORMIN HCL 500 MG TABLET 1 TABLET WITH A MEAL ORALLY BID TAKING LOSARTAN POTASSIUM-HCTZ 50-12.5 MG TABLET 1 TABLET ORALLY ONCE A DAY TAKING OXYCODONE HCL 20 MG TABLET 1 ORALLY 1 TAB Q 4-6HR MDD4 NOT-TAKING LINEZOLID 600 MG TABLET 1 TABLET ORALLY EVERY 12 HRS NOT-TAKING AMLODIPINE BESYLATE 10 MG TABLET 1 TABLET ORALLY ONCE A DAY NOT-TAKING SILVER SULFADIAZINE 1 % CREAM 1 APPLICATION TO AFFECTED AREA EXTERNALLY ONCE A DAY NOT-TAKING IBUPROFEN PM 200-38 MG TABLET 2 TABLETS AT BEDTIME NEEDED ORALLY ONCE A DAY NOT-TAKING DICLOFENAC SODIUM 75 MG TABLET DELAYED RELEASE 1 TABLET WITH FOOD OR MILK ORALLY TWICE A DAY NOT-TAKING NAPROXEN 250 MG TABLET 2 CAP ORALLY THREE DAILY NEEDED NOT-TAKING ACETAMINOPHEN 500 MG CAPSULE 2 CAPSULES NEEDED ORALLY EVERY 6 HRS NOT-TAKING MINOCYCLINE HCL 100 MG CAPSULE 1 CAPSULE ORALLY EVERY 12 HRS MEDICATION LIST REVIEWED AND RECONCILED WITH THE PATIENT PAST MEDICAL HISTORY MRSA OSTEOMYELITIS OF LEFT FIFTH METATARSAL 08/20/2013 HYPERTENSION DEPRESSION SESONAL ALLERGIES KIDNEYS MISSHAPED INSOMNIA PRE-DIABETES ASCVD 10 YR RISK: 4.3% (DECEMBER 2013) OSTEOMYELITIS LEFT FOOT LOW BACK PAIN ONE FALL 01/10/2021 DID NO GO THE ER, HAS A CUT ON THE RIGHT HAND ALLERGIES AMOXICILLIN: ANAPHYLAXIS - ALLERGY IODINE: ANAPHYLAXIS - ALLERGY SOCIAL HISTORY GENERAL: TOBACCO USE ARE YOU A:NONSMOKER LATEX QUESTIONNAIRE LATEX ALLERGY : HAVE YOU EVER DEVELOPED ANY TYPE OF REACTION AFTER HANDLING LATEX PRODUCTS SUCH RUBBER GLOVES, CONDOMS, DIAPHRAGMS, BALLOONS, SOCKS, OR UNDERWEAR?NO LATEX ALLERGY : HAVE YOU EVER DEVELOPED ANY TYPE OF REACTION DURING OR AFTER DENTAL APPOINTMENT, VAGINAL/RECTAL EXAMINATION, SURGICAL PROCEDURE, OR ANY OTHER EXPOSURE?NO LATEX RISK : HAVE YOU EVER HAD ANY DIFFICULTY BREATHING OR HIVES AFTER EATING OR HANDLING ANY FRUITS, OR VEGETABLES; SUCH KIWI, BANANAS, STONE FRUITS, OR CHESTNUTSNO LATEX RISK : DO YOU HAVE A PREVIOUS PERSONAL HISTORY OF MORE THAN NINE SURGERIES, SPINA BIFIDA, OR REPEATED CATHERIZATIONS? NO LATEX RISK : ARE YOU FREQUENTLY EXPOSED TO LATEX PRODUCTS IN YOUR OCCUPATION?NO DATE ASKED : 01/24/2021 ALCOHOL USE: NO. ALCOHOL SCREENING DID YOU HAVE A DRINK CONTAINING ALCOHOL IN THE PAST YEAR?NO POINTS0 INTERPRETATIONNEGATIVE RECREATIONAL DRUG USE DRUG USE?NO CAFFEINE CAFFEINE USE?YES HOW OFTEN AND HOW MUCH? COFFEE DAILY EPISCOPAL [id number] ROMAN CATHOLIC LANGUAGE LANGUAGES SPOKEN:[place] OF [place] LEARNING BARRIERS / SPECIAL NEEDS CHANGE FROM LAST VISIT?NO BARRIERS TO LEARNING?NO HEARING IMPAIRED?NO VISION IMPAIRED?YES :CORRECTIVE LENSES COGNITIVELY IMPAIRED?NO READINESS TO LEARN?YES LEARNING PREFERENCES?NO LEARNING CAPABILITIES PRESENT?YES EMOTIONAL BARRIERS?NO SPECIAL DEVICES?YES :WALKER NEEDED FAMILY PHYSICIAN NEEDED?NO DOMESTIC VIOLENCE DO YOU FEEL SAFE IN YOUR ENVIRONMENT?YES DIET: CARBOHYDRATE CONTROLLED, LOW SALT, LOW SUGAR. MARITAL STATUS: . OTHERS AT HOME: SPOUSE. - PFS REFERRAL NEEDED?NO CLERGY REFERRAL NEEDED?NO PUBLIC HEALTH REFERRAL NEEDED?NO HAS THE PATIENT BEEN EDUCATED REGARDING HIS/HER PLAN OF CARE?YES HAS THE PATIENT BEEN EDUCATED REGARDING PAIN, THE RISK FOR PAIN, THE IMPORTANCE OF EFFECTIVE PAIN MANAGEMENT, AND THE PAIN ASSESSMENT PROCESS?YES ADVANCE DIRECTIVE ADVANCE DIRECTIVE DISCUSSED WITH PATIENT:YES STATES HCP IS HIS - ALYSSIA MÉNDEZ; NO DOCUMENT PROVIDED REVIEW OF SYSTEMS CONSTITUTIONAL: ANY RECENT FEVER NO . CHILLS NO . WEIGHT CHANGE OF UNKNOWN REASONS NO . GASTROENTEROLOGY: NEW UNEXPLAINABLE CHANGES IN BOWEL CONTROL NO . CONSTIPATION NO . GENITOURINARY: ANY NEW CHANGE IN BLADDER CONTROL? NO . NEUROLOGY: NEW ONSET DIZZINESS OR NEUROLOGICAL CHANGES NOT MENTIONED NO . NEW NUMBNESS OR PAIN PATTERNS NOT MENTIONED AND PERTINENT TO TODAY'S VISIT NO . CARDIOLOGY: NEW CHEST PRESSURE NO . PATIENT DENIES NO . RESPIRATORY: UNEXPLAINABLE COUGH NO . NEW SHORTNESS OF BREATH NO . VITAL SIGNS WT 291.0 LBS, HT 76 IN, BMI 35.42 INDEX, BP 140/72 MM HG, HR 99 /MIN, RR 18 /MIN, TEMP 97.6 F, OXYGEN SAT % 99%, SAFE IN ENV? (Y/N) YES, NA INITIALS AW 1325T.[place]. EXAMINATION GENERAL EXAMINATION: GENERALAWAKE,ALERT ,PLEASANT . PSYCHAFFECT NORMAL . LUNGS:LUNG PRYOR ARE CLEAR TO AUSCULTATION BILATERALLY. GOOD MOVEMENT OF AIR . HEART:S1, S2 IN A REGULAR RATE AND RHYTHM. NO SIGNIFICANT MURMURS, RUBS OR GALLOPS NOTED . ASSESSMENTS OTHER CHRONIC PAIN - G89.29 (PRIMARY) LUMBAR POST-LAMINECTOMY SYNDROME - M96.1 TREATMENT OTHER CHRONIC PAIN REFILL OXYCODONE HCL TABLET, 20 MG, 1, ORALLY, 1 TAB Q 4-6HR MDD4, 30 DAYS, 120 PAIN PROCEDURE LOGDATE OF PROCEDURE1PROCEDURE:RIGHT LUMBAR COOL RADIOFREQUENCY L4-L5,L5-Q0FEAHHJ OF PRE SEDATEVALIUM 10MG, OXYCODONE 10MGRESULT:RESOLUTION IN RIGHT LOW BACK PAIN.NO CHANGE OF TODAY WITH RIGHT BUTTOCK AND THIGH PAIN. NOTES: ISTOP REGISTRY REVIEWED AND DEMONSTRATES COMPLLIANCE. . RECENT URINE TOXICOLOGY REVIEWED. NO UNAUTHORIZED MEDICATIONS. NO ILLICIT SUBSTANCES AND PRESCRIBED MEDICATIONS WERE PRESENT. , RISKS OF NARCOTIC/OPIOD MEDICATIONS INCLUDES BUT IS NOT LIMITED TO RISK OF DEPENDANCE/DEVELOPMENT OF ADDICTION, MOOD DISTURBANCE AND DEPRESSION, OSTEOPOROSIS, HORMONAL AND LABIDAL CHANGES, RESPIRATORY DEPRESSION AND . PATIENT IS ADVISED NOT TO DRIVE OR DRINK ALCOHOL WHILE ON THESE MEDICATIONS. PROCEDURE CODES [id number] ESTABILISHED PATIENT [facility] FACILITY CHARGE DISPOSITION & COMMUNICATION FOLLOW UP 6 WEEKS (REASON: RIGHT COOL RF-01/12/2021) ELECTRONICALLY SIGNED BY BEBO RUTHERFORD ON 01/26/2021 AT 03:47 PM EDT DISCLAIMER : THIS IS A VISIT SUMMARY EXTRACTED FROM THE [employer] CHART. IT IS NOT A COPY OF THE [employer] PROGRESS NOTE. TERESO
== END ==
LOC: M PAIN 13:30
PROVIDERS: ATTEND Nurse Practitioner Family
DX: G89.29 Other chronic pain (principal); M96.1 Postlaminectomy syndrome, not elsewhere classified; I10 Essential (primary) hypertension; F32.9 Major depressive disorder, single episode, unspecified; J30.2 Other seasonal allergic rhinitis; G47.00 Insomnia, unspecified; R73.03 Prediabetes; M54.5 Low back pain; Z86.14 Personal history of Methicillin resistant Staphylococcus aureus infection; Z79.84 Long term (current) use of oral hypoglycemic drugs; Z79.891 Long term (current) use of opiate analgesic; Z79.899 Other long term (current) drug therapy; Z88.0 Allergy status to penicillin; Z88.8 Allergy status to other drugs, medicaments and biological substances

== ENCOUNTER → 2021-03-21 | Outpatient (CLI) | payer OTHER | LOC: M PAIN 12:30 | PROVIDERS: ATTEND Anesthesiology | DX: M96.1 Postlaminectomy syndrome, not elsewhere classified (principal); M47.816 Spondylosis without myelopathy or radiculopathy, lumbar region; M51.16 Intervertebral disc disorders with radiculopathy, lumbar region; I10 Essential (primary) hypertension; F32.9 Major depressive disorder, single episode, unspecified; J30.2 Other seasonal allergic rhinitis; G47.00 Insomnia, unspecified; R73.03 Prediabetes; Z79.891 Long term (current) use of opiate analgesic; Z79.84 Long term (current) use of oral hypoglycemic drugs; Z79.899 Other long term (current) drug therapy ==

== ENCOUNTER → 2021-04-18 | Outpatient (CLI) | payer OTHER | LOC: M RAD 12:41 | PROVIDERS: ATTEND Anesthesiology | DX: M51.16 Intervertebral disc disorders with radiculopathy, lumbar region (principal); Z53.8 Procedure and treatment not carried out for other reasons ==

== ENCOUNTER → 2021-09-07 | Outpatient (CLI) | payer OTHER | LOC: M PAIN 10:00 | PROVIDERS: ATTEND Anesthesiology | DX: M53.3 Sacrococcygeal disorders, not elsewhere classified (principal); M51.16 Intervertebral disc disorders with radiculopathy, lumbar region; I10 Essential (primary) hypertension; F32.A Depression, unspecified; J30.2 Other seasonal allergic rhinitis; G47.00 Insomnia, unspecified; R73.03 Prediabetes; M54.50 Low back pain, unspecified; Z79.891 Long term (current) use of opiate analgesic; Z79.1 Long term (current) use of non-steroidal anti-inflammatories (NSAID); Z79.899 Other long term (current) drug therapy; Z79.84 Long term (current) use of oral hypoglycemic drugs; Z88.0 Allergy status to penicillin; Z88.8 Allergy status to other drugs, medicaments and biological substances ==

== ENCOUNTER → 2022-01-23 | Outpatient (CLI) | payer OTHER | LOC: M LABSMTC 09:45 | PROVIDERS: ATTEND Anesthesiology | DX: Z11.52 Encounter for screening for COVID-19 (principal); Z20.822 Contact with and (suspected) exposure to COVID-19 ==

== ENCOUNTER → 2022-01-26 | Outpatient (CLI) | payer OTHER ==
[~2022-01-26] MED LIST changes: +BUPIVACAINE HCL 0.25% 30ML VIAL As Ordered ONE; +ISOVUE-M 300 61% 15ML VIAL As Ordered ONE; +LIDOCAINE 1% SDV 30ML VIAL As Ordered ONE; +TRIAMCINOLONE ACETONIDE SUSP 40 MG/ML VIAL (J3301) As Ordered ONE; +diazePAM 5MG TABLET As Ordered ONE; +diphenhydrAMINE 25MG CAP As Ordered ONE; +oxyCODONE 5MG TAB As Ordered ONE
== END ==
LOC: M PAIN 12:30
PROVIDERS: ATTEND Anesthesiology
DX: M46.1 Sacroiliitis, not elsewhere classified (principal); I10 Essential (primary) hypertension; F32.A Depression, unspecified; J30.2 Other seasonal allergic rhinitis; G47.00 Insomnia, unspecified; R73.03 Prediabetes; M54.50 Low back pain, unspecified; Z89.422 Acquired absence of other left toe(s); Z98.1 Arthrodesis status; Z79.84 Long term (current) use of oral hypoglycemic drugs; Z79.1 Long term (current) use of non-steroidal anti-inflammatories (NSAID); Z79.891 Long term (current) use of opiate analgesic; Z88.0 Allergy status to penicillin; Z88.8 Allergy status to other drugs, medicaments and biological substances
CPT/HCPCS: G0260; J3301; Q9967

== ENCOUNTER → 2022-03-08 | Outpatient (CLI) | payer OTHER ==
[~2022-03-08] MED LIST changes: -BUPIVACAINE HCL 0.25% 30ML VIAL As Ordered ONE; -ISOVUE-M 300 61% 15ML VIAL As Ordered ONE; -LIDOCAINE 1% SDV 30ML VIAL As Ordered ONE; -TRIAMCINOLONE ACETONIDE SUSP 40 MG/ML VIAL (J3301) As Ordered ONE; -diazePAM 5MG TABLET As Ordered ONE; -diphenhydrAMINE 25MG CAP As Ordered ONE; -oxyCODONE 5MG TAB As Ordered ONE
== END ==
LOC: M PAIN 09:15
PROVIDERS: ATTEND Anesthesiology
DX: M53.3 Sacrococcygeal disorders, not elsewhere classified (principal); M96.1 Postlaminectomy syndrome, not elsewhere classified; Z86.14 Personal history of Methicillin resistant Staphylococcus aureus infection; I10 Essential (primary) hypertension; F32.A Depression, unspecified; J30.2 Other seasonal allergic rhinitis; G47.00 Insomnia, unspecified; R73.03 Prediabetes; M54.50 Low back pain, unspecified; Z79.891 Long term (current) use of opiate analgesic; Z79.899 Other long term (current) drug therapy; Z98.1 Arthrodesis status; Z88.0 Allergy status to penicillin; Z88.8 Allergy status to other drugs, medicaments and biological substances

== ENCOUNTER → 2022-03-08 | Outpatient (CLI) | payer OTHER, SELFPAY | LOC: M RAD 11:32 | PROVIDERS: ATTEND Anesthesiology | DX: M53.3 Sacrococcygeal disorders, not elsewhere classified (principal) ==

== ENCOUNTER → 2022-04-24 | Outpatient (CLI) | payer OTHER | LOC: M PAIN 09:15 | PROVIDERS: ATTEND Anesthesiology | DX: M53.3 Sacrococcygeal disorders, not elsewhere classified (principal); M96.1 Postlaminectomy syndrome, not elsewhere classified; Z86.14 Personal history of Methicillin resistant Staphylococcus aureus infection; I10 Essential (primary) hypertension; F32.A Depression, unspecified; J30.2 Other seasonal allergic rhinitis; G47.00 Insomnia, unspecified; R73.03 Prediabetes; M54.50 Low back pain, unspecified; Q63.9 Congenital malformation of kidney, unspecified; Z98.1 Arthrodesis status; Z79.891 Long term (current) use of opiate analgesic; Z79.899 Other long term (current) drug therapy; Z88.0 Allergy status to penicillin; Z88.8 Allergy status to other drugs, medicaments and biological substances ==

== ENCOUNTER → 2022-10-04 | Outpatient (CLI) | payer OTHER | LOC: M PAIN 09:30 | PROVIDERS: ATTEND Anesthesiology | DX: M53.3 Sacrococcygeal disorders, not elsewhere classified (principal); I10 Essential (primary) hypertension; F32.A Depression, unspecified; J30.2 Other seasonal allergic rhinitis; G47.00 Insomnia, unspecified; R73.03 Prediabetes; M54.50 Low back pain, unspecified; Z79.891 Long term (current) use of opiate analgesic; Z79.899 Other long term (current) drug therapy; Z88.0 Allergy status to penicillin; Z88.8 Allergy status to other drugs, medicaments and biological substances ==

== ENCOUNTER → 2022-11-22 | Outpatient (CLI) | payer OTHER | LOC: M PAIN 11:00 | PROVIDERS: ATTEND Anesthesiology | DX: M53.3 Sacrococcygeal disorders, not elsewhere classified (principal); G89.29 Other chronic pain; I10 Essential (primary) hypertension; R73.03 Prediabetes; Z86.14 Personal history of Methicillin resistant Staphylococcus aureus infection; Z86.59 Personal history of other mental and behavioral disorders; Z88.1 Allergy status to other antibiotic agents; Z88.3 Allergy status to other anti-infective agents; Z79.899 Other long term (current) drug therapy ==

== ENCOUNTER → 2023-03-01 | Outpatient (CLI) | payer OTHER, SELFPAY | LOC: M PAIN 15:30 | PROVIDERS: ATTEND Anesthesiology | DX: Z53.29 Procedure and treatment not carried out because of patient's decision for other reasons (principal) ==

== ENCOUNTER → 2023-03-02 | Outpatient (CLI) | payer OTHER, SELFPAY | LOC: M PAIN 13:00 | PROVIDERS: ATTEND Anesthesiology | DX: M53.3 Sacrococcygeal disorders, not elsewhere classified (principal); G89.29 Other chronic pain; I10 Essential (primary) hypertension; F32.A Depression, unspecified; J30.2 Other seasonal allergic rhinitis; G47.00 Insomnia, unspecified; R73.03 Prediabetes; M54.50 Low back pain, unspecified; Z88.0 Allergy status to penicillin; Z88.8 Allergy status to other drugs, medicaments and biological substances; Z79.1 Long term (current) use of non-steroidal anti-inflammatories (NSAID); Z79.891 Long term (current) use of opiate analgesic ==

== ENCOUNTER → 2023-05-09 | Outpatient (CLI) | payer OTHER | LOC: M PAIN 09:00 | PROVIDERS: ATTEND Anesthesiology | DX: M53.3 Sacrococcygeal disorders, not elsewhere classified (principal); M96.1 Postlaminectomy syndrome, not elsewhere classified; I10 Essential (primary) hypertension; F32.A Depression, unspecified; J30.2 Other seasonal allergic rhinitis; G47.00 Insomnia, unspecified; R73.03 Prediabetes; M54.50 Low back pain, unspecified; Z79.891 Long term (current) use of opiate analgesic; Z88.0 Allergy status to penicillin; Z88.8 Allergy status to other drugs, medicaments and biological substances ==

== ENCOUNTER → 2023-08-15 | Outpatient (CLI) | payer OTHER | LOC: M PAIN 09:00 | PROVIDERS: ATTEND Anesthesiology | DX: M53.3 Sacrococcygeal disorders, not elsewhere classified (principal); M96.1 Postlaminectomy syndrome, not elsewhere classified; Z86.14 Personal history of Methicillin resistant Staphylococcus aureus infection; Z88.1 Allergy status to other antibiotic agents; Z88.3 Allergy status to other anti-infective agents; Z79.899 Other long term (current) drug therapy ==

== ENCOUNTER → 2023-11-14 | Outpatient (CLI) | payer OTHER | LOC: M PAIN 09:15 | PROVIDERS: ATTEND Anesthesiology | DX: M96.1 Postlaminectomy syndrome, not elsewhere classified (principal); G89.29 Other chronic pain; M54.50 Low back pain, unspecified; I10 Essential (primary) hypertension; F32.A Depression, unspecified; J30.2 Other seasonal allergic rhinitis; G47.00 Insomnia, unspecified; R73.03 Prediabetes; Z79.84 Long term (current) use of oral hypoglycemic drugs; Z79.891 Long term (current) use of opiate analgesic; Z79.1 Long term (current) use of non-steroidal anti-inflammatories (NSAID); Z88.0 Allergy status to penicillin; Z88.8 Allergy status to other drugs, medicaments and biological substances | CPT/HCPCS: 76000; G0463 ==

== ENCOUNTER 2024-03-09 14:16 | Emergency (ER) | payer OTHER, SELFPAY ==
[~2024-03-09] VITALS: Ht 193 cm; Wt 118.2 kg
[2024-03-09 14:17] VITALS: BP 139/84; TEMP 97.6; O2SAT 96
[2024-03-09] MEDS: oxyCODONE 5MG TAB PO ONE (18:41)
== END 2024-03-09 20:32 | disposition home or self-care (01) ==
LOC: M ED 14:16
DX: S76.111A Strain of right quadriceps muscle, fascia and tendon, initial encounter (principal); Y92.9 Unspecified place or not applicable; Y93.9 Activity, unspecified; Y99.9 Unspecified external cause status; I10 Essential (primary) hypertension; Z88.1 Allergy status to other antibiotic agents; Z88.8 Allergy status to other drugs, medicaments and biological substances; Z91.013 Allergy to seafood; Z79.1 Long term (current) use of non-steroidal anti-inflammatories (NSAID); Z79.899 Other long term (current) drug therapy

== ENCOUNTER 2024-03-14 16:55 | Emergency (ER) | payer OTHER ==
[~2024-03-14] VITALS: Ht 193 cm; Wt 117.9 kg
[2024-03-14 16:55] VITALS: BP 137/71; TEMP 96.9; O2SAT 97
[2024-03-14] MEDS ORDERED: ROLLMIS8 XX (17:59)
== END 2024-03-14 18:49 | disposition home or self-care (01) ==
LOC: M ED 16:55
DX: M25.461 Effusion, right knee (principal); M51.36 Other intervertebral disc degeneration, lumbar region; F32.A Depression, unspecified; Z88.1 Allergy status to other antibiotic agents; Z91.013 Allergy to seafood; Z79.1 Long term (current) use of non-steroidal anti-inflammatories (NSAID); Z79.899 Other long term (current) drug therapy

== ENCOUNTER → 2024-06-17 | Outpatient (CLI) | payer OTHER ==
[~2024-06-17] MED LIST changes: +ROLLMIS8 XX
== END ==
LOC: M PAIN 14:00
PROVIDERS: ATTEND Anesthesiology
DX: M96.1 Postlaminectomy syndrome, not elsewhere classified (principal); Z79.891 Long term (current) use of opiate analgesic; G89.29 Other chronic pain; M54.50 Low back pain, unspecified; I10 Essential (primary) hypertension; F32.A Depression, unspecified; G47.00 Insomnia, unspecified; R73.03 Prediabetes; Z79.84 Long term (current) use of oral hypoglycemic drugs; Z88.0 Allergy status to penicillin; Z88.8 Allergy status to other drugs, medicaments and biological substances

== ENCOUNTER → 2024-08-13 | Outpatient (CLI) | payer SELFPAY | LOC: M PAIN 16:45 | PROVIDERS: ATTEND Anesthesiology | DX: M96.1 Postlaminectomy syndrome, not elsewhere classified (principal) ==

== ENCOUNTER → 2024-08-19 | Outpatient (CLI) | payer SELFPAY | LOC: M PAIN 08:30 | PROVIDERS: ATTEND Anesthesiology | DX: M96.1 Postlaminectomy syndrome, not elsewhere classified (principal); M53.3 Sacrococcygeal disorders, not elsewhere classified; M54.50 Low back pain, unspecified; G89.29 Other chronic pain; I10 Essential (primary) hypertension; R73.03 Prediabetes; Z79.891 Long term (current) use of opiate analgesic; Z79.84 Long term (current) use of oral hypoglycemic drugs; Z88.0 Allergy status to penicillin; Z88.8 Allergy status to other drugs, medicaments and biological substances ==